=== PATIENT | male | born 1980 | race Caucasian/White ===

== ENCOUNTER 2024-06-09 10:33 | Outpatient (OUT) | payer OTHER, SELFPAY ==
--- NOTE | 2024-06-09 10:51 | XR_ITS ---
The [address] [address] Patient Name: AMRITA COX MRN: [id number] date: 1980 Sex: M Assigned Patient Location: LAB Current Patient Location: LAB Accession/Order Number: [id number] Exam Date: 06/09/2024 11:25 Report Date: 06/09/2024 11:29 At the request of: ANGIE MONSALVE Procedure: XR lumbar spine 6V w bending LUMBAR SPINE WITH FLEXION-EXTENSION VIEWS - 6 views: CLINICAL HISTORY: Chronic low back pain with radiation down the lower extremities and intermittent numbness. No reported injury. M54.50 COMPARISON: None AP, lateral (neutral, flexion and extension and both oblique views of the lumbosacral junction were obtained. There is partial lumbarization of S1 with a pseudoarthrosis on the right. There is no acute compression fracture. Alignment is maintained on the lateral views. No instability is noted. Mild multilevel disc space narrowing is present along with anterior and posterior endplate spurs. There is also some facet disease, greater distally. No pars defect is identified. The sacroiliac joints are maintained and show slight sclerosis. There are no paraspinal soft tissue abnormalities. XR/XR lumbar spine 6V w bending IMPRESSION: MULTILEVEL DEGENERATIVE CHANGES. NO ACUTE PLAIN FILM FINDINGS. Impression dictated by: Calli Dixon M.D.06/09/2024 11:29 AM Dictation Location: [place] [address] Electronically authenticated by: [id number] Y Date: 06/09/2024 11:29
[2024-06-09 10:52] LABS: Basophils Absolute Auto 0.1 10^3/uL (0.0-0.1); Basophils Percent Auto 1.1 % (0.2-2.0); Eosinophils Percent Auto 10.9 % (0.9-7.0); Hematocrit 46.3 % (42.0-54.0); Hemoglobin 15.9 g/dL (14.0-18.0); Immature Granulocytes Abs Auto 0.01 10^3/uL (0.00-0.03); Immature Granulocytes Pct Auto 0.1 % (0.0-0.5); Lymphocytes Absolute Auto 2.2 10^3/uL (1.2-3.8); Lymphocytes Percent Auto 24.5 % (20.5-60.0); Mean Corpuscular HGB Conc 34.3 g/dL (29.9-35.2); Mean Corpuscular Hemoglobin 31.6 pg (25.9-34.0); Mean Platelet Volume 9.7 fL (9.5-13.5); Monocytes Absolute Auto 0.6 10^3/uL (0.3-0.8); Monocytes Percent Auto 6.9 % (1.7-12.0); Neutrophils Absolute Auto 5.2 10^3/uL (1.4-6.5); Neutrophils Percent Auto 56.5 % (43.0-75.0); Platelet Count 256 10^3/uL (150-450); Red Blood Count 5.03 10^6/uL (4.70-6.10); Red Cell Distribution Width 12.3 % (11.0-15.0); White Blood Count 9.2 10^3/uL (4.0-11.0)
[2024-06-09 11:26] LABS: Alanine Aminotransferase 31 U/L (16-63); Albumin Globulin Ratio 1.1; Albumin Level 3.9 g/dL (3.4-5.0); Alkaline Phosphatase 81 U/L (46-116); Aspartate Amino Transferase 22 U/L (15-37); BUN Creatinine Ratio 11.9; Bilirubin Total 0.4 mg/dL (0.2-1.0); Calcium 9.4 mg/dL (8.5-10.1); Carbon Dioxide 28.4 mmol/L (21.0-32.0); Chloride 104 mmol/L (98-107); Estimated GFR (African America >60 (>=60 mL/min/1.73m^2); Estimated GFR (Non-African Ame >60 (>=60 mL/min/1.73m^2); Globulin 3.4 g/dL; Glucose 96 mg/dL (74-106); Potassium 4.4 mmol/L (3.5-5.1); Sodium 140 mmol/L (136-145); Total Protein 7.3 g/dL (6.4-8.2)
[2024-06-09 11:48] LABS: Percent Iron Saturation 24.4 %
== END 2024-06-09 10:34 | disposition home or self-care (01) ==
LOC: LAB 10:37
PROVIDERS: PCP Nurse Practitioner Family; Visit Provider Nurse Practitioner Family
DX: K92.1 Melena (principal); M54.50 Low back pain, unspecified; M51.369 Other intervertebral disc degeneration, lumbar region without mention of lumbar back pain or lower extremity pain
CPT/HCPCS: 36415; 72114; 80053; 82728; 83540; 83550; 85025

== ENCOUNTER 2024-06-11 16:44 | Emergency (ER) | payer OTHER, SELFPAY ==
[2024-06-11 16:49] VITALS: BP 147/103; PULSE 111; TEMP 36.7; O2SAT 97; BMI 33.0
--- OUTSIDE RECORDS SUMMARY | 2024-06-11 16:50 | XMS_ITS | CCD ---
Author Organization [facility] Care Team Providers Care Veterinary Pharmacologist Name Role Phone Collins Cruz Unavailable Marilyn Rao Unavailable [facility], [facility] Primary Care Provider [phone] MD Meño Coelho Emergency Provider DO Mino Gallego Emergency Provider [phone] [facility] Primary Care Provider MD Meño Coelho Emergency Provider DO Mino Gallego Emergency Provider MD Marilyn Rao Attending Provider Marilyn Rao Admitting Unavailable Marilyn Rao Attending Unavailable [facility], [facility] Primary Care Unavailable Olexa, Collins Attending Unavailable Olexa, Collins Admitting Unavailable [facility], [facility] Primary Care Unavailable Nancy, Collins Attending Unavailable Frankixa, Collins Admitting Unavailable [facility], [facility] Primary Care Unavailable [facility], [facility] Primary Care Unavailable Marilyn Rao Attending Unavailable Marilyn Rao Admitting Unavailable [facility], [facility] Primary Care Unavailable Mino Gallego Attending Unavailable Mino Gallego Admitting Unavailable [facility], [facility] Primary Care Unavailable Meño Coelho Attending Unavailable Meño Coelho Admitting Unavailable Olexa, Collins Attending Unavailable Frankixa, Collins Admitting Unavailable [facility], [facility] Primary Care Unavailable Marilyn Rao Attending Unavailable Marilyn Rao Admitting Unavailable [facility], [facility] Primary Care Unavailable Hazel Amato Unavailable DR ALVINO BACK Admitting [facility]available [facility], DR VIRAMONTES Primary Care Unavailable RAJIV Faulkner DR ALVINO Attending Unavailable RAJIV ., DR DE OLIVEIRA Consulting Unavailable KRISHNA, DR MADELEINE King Attending Unavailable KRISHNA, DR MADELEINE King Consulting Unavailable KRISHNA, DR MADELEINE King Admitting Unavailable MISC, DR VIRAMONTES Primary Care Unavailable IRMA, DR EL Cates Consulting Unavailabl e MIS, DR VIRAMONTES Primary Care Unavailable XAVIER ., COSMO Admitting Unavailable XAVIER ., COSMO Attending Unavailable REINA REID Consulting Unavailable MISC, DR VIRAMONTES Primary Care Unavailable ARMAND JUARES Consulting Unavailable XAVIER ., COSMO Admitting Unavailable XAVIER ., COSMO Attending Unavailable XAVIER ., COSMO Consulting Unavailable MISC, DR VIRAMONTES Primary Care Unavailable XAVIER ., COSMO Consulting Unavailable XAVIER ., COSMO Admitting Unavailable XVAIER ., COSMO Attending Unavailable MISC, DR VIRAMONTES Consulting Unavailable MISC, DR VIRAMONTES Primary Care Unavailable MISC, DR VIRAMONTES Admitting Unavailable MISC, DR VIRAMONTES Attending Unavailable KUNAL, DR DELANEY King Consulting Unavailable KUNAL, DR DELANEY King Consulting Unavailable MIS, DR VIRAMONTES Primary Care Unavailable ZION PRITCHETT Admitting Unavailable ZION PRITCHETT Attending Unavailable ZION PRITCHETT Consulting Unavailable Kylee Lizarraga Unavailable Medications Current Medications Medication Drug Class(es) Dates Sig (Normalized) Sig (Original) [id number] 200 actuat albuterol 0.09 mg/actuat metered dose inhaler (2 sources) beta2-Adrenergic Agonist Start: 03-13-2022 take 2 puff(s) by inhalation every four hours as needed Albuterol Sulfate HFA 108 (90 Base) MCG/ACT 2 puffs as needed Inhalation every 4 hrs Feb, Active Start: 03-13-2022 take 2 puff(s) by in halation every four hours as needed Albuterol Sulfate HFA 108 (90 Base) MCG/ACT 2 puffs as needed Inhalation every 4 hrs Feb, Not-Taking busPIRone hydrochloride 5 mg oral tablet (4 sources) Start: 12-31-2023 End: 06-02-2024 take 1 tablet by mouth twice daily Buspirone 5 mg tablet Active 5 MG PO Twice daily 180 90 June 02, 2024 3:05pm diclofenac sodium 0.01 mg/mg topical gel (3 sources) Nonsteroidal Anti-inflammatory Drug Start: 01-14-2022 Voltaren 1 % apply 1-2 grams to affected area Transdermal twice a day as needed for 30 days Dec, Active doxycycline hyclate 100 mg oral tablet (8 sources) Tetracycline-class Drug Start: 01-30-2022 take 1 tablet by mouth every twelve hours Doxycycline Hyclate 100 MG 1 tablet Orally every 12 hrs for 7 days Jan, Active Start: 09-19-2021 End: 11-19-2023 take 1 tablet by mouth twice daily Doxycycline Hyclate 100 mg tablet Discontinued 100 MG PO Twice daily 01 01September 19, 2021 12:00am November 19, 2023 7:54am escitalopram 20 mg oral tablet (7 sources) Serotonin Reuptake Inhibitor Start: 11-19-2023 End: 06-03-2024 take 1 tablet by mouth once daily Escitalopram Oxalate (Lexapro) 20 mg tablet Active 20 MG PO Daily June 03, 2024 11:16am Lexapro Active ibuprofen 800 mg oral tablet (20 sources) Nonsteroidal Anti-inflammatory Drug Start: 12-16-2022 take 1 tablet by mouth every eight hours at mealtime as needed for pain Ibuprofen 800 MG 1 tablet with food or milk as needed Orally every 8 hrs prn pain for 7 days Nov, Active Start: 01-13-2022 End: 01-18-2022 take 1 tablet by mouth three times daily as needed for pain Ibuprofen 800 mg tablet Discontinued 800 MG PO Three times daily as needed for Pain January 13, 2022 12:00am January 18, 2022 10:46pm Start: 08-15-2020 End: 01-18-2022 take 1 tablet by mouth every eight hours as needed for pain Ibuprofen 600 mg tablet Discontinued 600 MG PO Q8H as needed for pain August 23, 2020 1:00am January 18, 2022 10:46pm Ibuprofen Not-Ta jesus Ibuprofen Active penicillin v potassium 500 mg oral tablet (1 source) Start: 12-16-2022 take 1 tablet by mouth every six hours Penicillin V Potassium 500 MG 1 tablet Orally QID for 7 days Nov, Active traZODone hydrochloride 50 mg oral tablet (3 sources) Serotonin Reuptake Inhibitor Start: 12-31-2023 End: 06-09-2024 take 1 tablet by mouth once daily at bedtime Trazodone 50 mg tablet Active 50 MG PO Daily at bedtime 90 90 June 09, 2024 10:04am Completed/Discontinued Medications Medication Drug Class(es) Dates Sig (Normalized) Sig (Original) acetaminophen 325 mg / HYDROcodone bitartrate 5 mg oral tablet (10 sources) Opioid Agonist Start: 09-19-2021 End: 11-19-2023 take 1 tablet by mouth every four to six hours as needed for pain Hydrocodone-Acetami nophen 5-325 mg tablet Discontinued 1 - 2 TAB PO EVERY 4-6 HOURS as needed for pain 15 September 19, 2021 November 19, 2023 7:54am Start: 06-25-2021 take 1 tablet by tank th every four hours as needed for pain HYDROcodone-Acetaminophen 5-325 MG 1 tab let as needed for pain Orally up to every 4 hrs for 5 days May, Active acetaminophen 325 mg / oxyCODONE hydrochloride 5 mg oral tablet (12 sources) Opioid Agonist Start: 08-15-2020 End: 09-03-2020 take 1 tablet by mouth every six hours as needed for pain Oxycodone-Acetaminophen (Percocet) 5-325 mg tablet Discontinued 1 - 2 TAB PO Q6H as needed for pain 20 August 23, 2020 September 03, 2020 11:29pm cyclobenzaprine hydrochloride 7.5 mg oral tablet (5 sources) Muscle Relaxant Start: 01-19-2022 End: 11-19-2023 take 1 tablet by mouth three times daily as needed for muscle spasms Cyclobenzaprine 7.5 mg tablet Discontinued 7.5 MG PO Three times daily as needed for muscle spasm January 19, 2022 12:00am November 19, 2023 7:55am 12 hr dextromethorphan hydrobromide 30 mg / guaiFENesin 600 mg extended release oral tablet (2 sources) Uncompetitive W-beyund-G-aspa rtate Receptor Antagonist, Sigma-1 Agonist Start: 03-13-2022 take 1 tablet by mouth every twelve hours Mucinex DM 30-600 MG 1 tablet as needed Orally every 12 hrs Feb, Not-Taking docusate sodium 50 mg / sennosides, custodial 8.6 mg oral tablet (6 sources) Start: 08-15-2020 End: 09-03-2020 take 2 tablets by mouth once daily at bedtime as needed for constipation Sennosides-Docusate Sodium (Senna Plus) 8.6-50 mg tablet Discontinued 2 TAB PO Daily at bedtime as needed for constipation August 15, 2020 12:00am September 03, 2020 11:29pm gabapentin 600 mg oral tablet (5 sources) Anti-epileptic Agent Start: 01-19-2022 End: 11-19-2023 Gabapentin 600 mg tablet Discontinued 300 MG PO Three times daily January 19, 2022 12:00am November 19, 2023 7:55am Start: 01-19-2022 End: 11-19-2023 take 300 mg by mouth three times daily Gabapentin Discontinued 300 MG PO Three times daily January 19, 2022 12:00am November 19, 2023 7:55am lidocaine 0.05 mg/mg medicated patch (5 sources) Antiarrhythmic, Amide Local Anesthetic Start: 01-19-2022 End: 11-19-2023 apply 1 dose topically every twelve hours Lidocaine (Lidoderm) 5 % adhesive patch,medicated Discontinued 0 TOPICAL .COMPLEX January 19, 2022 12:00am November 19, 2023 7:54am leave one patch on most painful area for up to 12 hrs methylPREDNISolone 4 mg oral tablet (8 sources) Corticosteroid Start: 01-14-2022 End: 11-19-2023 take 1 tablet by mouth once daily Methylprednisolone 4 mg tablets,dose pack Discontinued 4 MG PO Daily January 18, 2022 12:00am November 19, 2023 7:54am naproxen 500 mg delayed release oral tablet (5 sources) Nonsteroidal Anti-inflammatory Drug Start: 01-19-2022 End: 11-19-2023 take 1 tablet by mouth twice daily as needed for pain Naproxen 500 mg tablet,delayed release (DR/EC) Discontinued 500 MG PO Twice daily as needed for pain January 19, 2022 12:00am November 19, 2023 7:55am ondansetron 4 mg disintegrating oral tablet (12 sources) Serotonin-3 Receptor Antagonist Start: 08-15-2020 End: 09-03-2020 take 1 tablet by mouth every eight hours as needed for nausea and vomiting Ondansetron 4 mg tablet,disintegrating Discontinued 4 MG PO Q8H as needed for nausea and vomiting August 23, 2020 1:00am September 03, 2020 11:29pm triamcinolone acetonide 40 mg/ml injectable suspension (8 sources) Corticosteroid Start: 07-29-2021 Kenalog-40 July, 40 mg Problems Active Problems Problem Classification Problem Date Documented Da te Episodic/Chronic Abdominal pain (8 sources) Abdominal pain; Translations: [Unspecified abdominal pain] 09-04-2020 Episodic Anxiety disorders (6 sources) Anxiety; Translations: [Anxiety disorder, unspecified] 11-19-2023 Chronic Chronic obstructive pulmonary disease and bronchiectasis (1 source) Bronchitis, not specified as acute or chronic Episodic Disorders of teeth and jaw (2 sources) Periapical abscess without sinus; Translations: [Jaw pain] Episodic Esophageal disorders (2 sources) Gastroesophageal reflux disease; Translations: [Gastro-esophageal reflux disease without esophagitis] 06-09-2024 Chronic Gastrointestinal hemorrhage (2 sources) Hematochezia; Translations: [Melena] 06-09-2024 Episodic Immunizations and screening for infectious disease (3 sources) Contact with and (suspected) exposure to other viral communicable diseases; Translations: [Contact with and (suspected) exposure to other viral communicable diseases] Episodic Influenza (1 source) Influenza due to other identified influenza virus with other respiratory manifestations Episodic Mood disorders (5 sources) Depressive disorder; Translations: [Depression] 11-19-2023 Chronic Other connective tissue disease (3 sources) Ganglion, left hand Onset: 2 Resolved: 2 Episodic Other connective tissue disease (6 sources) Ganglion cyst of tendon sheath; Translations: [Ganglion, unspecified site] 09-19-2021 Episodic Other connective tissue disease (5 sources) Muscle spasm of cervical muscle of neck; Translations: [Other muscle spasm] 01-19-2022 Episodic Other nervous system disorders (11 sources) Carpal tunnel syndrome; Translations: [Carpal tunnel syndrome, unspecified upper limb] Chronic Other nervous system disorders (20 sources) Carpal tunnel syndrome of right wrist; Translations: [Carpal tunnel syndrome, right upper limb] Chronic Other nervous system disorders (20 sources) Carpal tunnel syndrome of left wrist; Translations: [Carpal tunnel syndrome, left upper limb] Chronic Other nervous system disorders (1 source) Carpal tunnel syndrome, left upper limb Onset: 2 Resolved: 2 Chronic Other nervous system disorders (1 source) Carpal tunnel syndrome, right upper limb Onset: 2 Resolved: 2 Chronic Other nervous system disorders (4 sources) Unspecified mononeuropathy of left upper limb; Translations: [UNS MONONEUROPATHY LEFT UPPER LIMB] Onset: 2 Chronic Other nervous system disorders (11 sources) Numbness of hand; Translations: [Other disturbances of skin sensation] Episodic Other nervous system disorders (6 sources) Pain in limb; Translations: [Other acute postprocedural pain] 01-13-2022 Episodic Other nutritional; endocrine; and metabolic disorders (11 sources) Body mass index 40+ - severely obese; Translations: [Body mass index (BMI) 45.0-49.9, adult] Chronic Other screening for suspected conditions (not mental disorders or infectious disease) (15 sources) Patient encounter status; Translations: [Encounter for screening for diseases of the blood and blood-forming organs and certain disorders involving the immune mechanism] 11-19-2023 Episodic Pancreatic disorders (not diabetes) (6 sources) Pancreatitis; Translations: [Acute pancreatitis without necrosis or infection, unspecified] 08-15-2020 Episodic Residual codes; unclassified (1 source) Disturbance in sleep behavior; Translations: [Sleep disorder, unspecified] 12-31-2023 Episodic Spondylosis; intervertebral disc disorders; other back problems (8 sources) Cervical radiculopathy; Translations: [Radiculopathy, cervical region] Onset: 2 01-19-2022 Episodic Superficial injury; contusion (6 sources) Contusion of hand; Translations: [Contusion of left hand, initial encounter] 09-09-2019 Episodic Unclassified (1 source) Cutaneous abscess of left hand; Translations: [Cutaneous abscess of left hand] Onset: 2 Unclassified (1 source) M67.442 - Ganglion, left hand; Translations: [M67.442 - Ganglion, left hand] Onset: 2 Unclassified (1 source) Z01.812 - Encounter for preprocedural laboratory examination; Translations: [Z01.812 - Encounter for preprocedural laboratory examination] Onset: 2 Unclassified (1 source) M79.642 - Pain in left hand; Translations: [M79.642 - Pain in left hand] Onset: 2 Unclassified (1 source) G56.02 - Carpal tunnel syndrome, left upper limb; Translations: [G56.02 - Carpal tunnel syndrome, left upper limb] Onset: 2 Past or Other Problems Problem Classification Problem Date Documented Date Episodic/Chronic Complications of surgical procedures or medical care (1 source) Infection following a procedure, other surgical site, initial encounter; Translations: [INFECT FOL PROC OTH SURG SITE INIT] Onset: 01-28-2022 Episodic E Codes: Natural/environment (1 source) Exposure to other specified factors, initial encounter; Translations: [EXPOSURE OTHER SPEC FACTORS INITIAL] Onset: 01-20-2022 Episodic Other aftercare (2 sources) Encounter for removal of sutures Onset: 07-09-2021 Resolved: 10-04-2021 Episodic Other aftercare (1 source) Other custodial (current) drug therapy; Translations: [OT GIS CONSULTANT CURRENT DRUG THERAPY] Onset: 01-30-2022 Episodic Other connective tissue disease (5 sources) Pain in left hand; Translations: [M79.642 - Pain in left hand] Onset: 07-29-2021 Resolved: 07-29-2021 Episodic Other connective tissue disease (1 source) Pain in left arm; Translations: [Pain in left arm] Onset: 01-19-2022 Episodic Other connective tissue disease (4 sources) Other specified soft tissue disorders; Translations: [Other specified soft tissue disorders] Onset: 01-13-2022 Episodic Other connective tissue disease (1 source) Other synovitis and tenosynovitis, left hand; Translations: [OTH SYNOVITIS TENOSYNOVITIS LT HAND] Onset: 01-14-2022 Episodic Other nervous system disorders (1 source) Other acute postprocedural pain; Translations: [G89.18 - Other acute postprocedural pain] Onset: 09-19-2021 Episodic Other non-traumatic joint disorders (4 sources) Pain in left shoulder; Translations: [PAIN IN LEFT SHOULDER] Onset: 01-18-2022 Episodic Other skin disorders (1 source) Localized swelling, mass and lump, left upper limb Onset: 07-29-2021 Resolved: 07-29-2021 Episodic Residual codes; unclassified (6 sources) Other specified postprocedural states; Translations: [OTH SPECIFIED POSTPROCEDURAL STATES] Onset: 06-25-2021 Resolved: 10-04-2021 Episodic Screening and history of mental health and substance abuse codes (1 source) Personal history of nicotine dependence; Translations: [PERSONAL HISTORY OF NICOTINE DEPEND] Onset: 01-30-2022 Episodic Skin and subcutaneous tissue infections (3 sources) Cutaneous abscess of left hand; Translations: [CUTANEOUS ABSCESS OF LEFT HAND] Onset: 01-30-2022 Episodic Sprains and strains (1 source) Strain of unspecified muscle, fascia and tendon at shoulder and upper arm level, left arm, initial encounter; Translations: [STRN UNS MSC F TND SHLDR UA LA INIT] Onset: 01-20-2022 Episodic Results Test Name Value Interpretation Reference Range Facility COVID/FLU RT-PCRon SARS-CoV-2 (COVID-19) RNA SHA+probe Ql (Unsp spec) Negative [facility] Other COVID/FLU RT-PCR Positive [facility] Other COVID/FLU RT-PCR Negative [facility] Other Aerobic Cultureon 01-31-2022 Aerobic Culture Light Normal Skin Nayeli 2 Days No Anaerobes Isolated 3 Days Gram Stain Result No Bacteria Seen No White Blood Cells Seen PERFORMED BY: [place] [id number] PATHOLOGIST MAGAZINE GRINDER LOADER JENNY ALEMAN M.D. Normal [facility] Comment on above: Performed By: #### A ERC #### [place] [address] [place] CULTURE WOUNDon 01-28-2022 CULTURE WOUND Culture Observations: NO GROWTH OF ANAEROBES AT 72 HOURS. Isolate 1 Staphylococcus lugdunensis Light growth of ORGANISM 1 Staphylococcus lugdunensis ANTIBIOTIC M.I.C RX STATUS Beta-Lactamase Pos POS C Cefoxitin Screen Neg NEG C Benzylpenicillin >=0.5 R C Gentamicin <=0.5 S C Ciprofloxacin <=0.5 S C Levofloxacin <=0.12 S C Inducible Clindamycin Resistance Neg NEG C Erythromycin <=0.25 S C Clindamycin <=0.25 S C Quinupristin/Dalfo pristin <=0.25 S C Linezolid 1 S C Vancomycin <=0.5 S C Tetracycline <=1 S C Rifampicin <=0.5 S C Trimethoprim/Sulfa methoxazole <=10 S C Oxacillin 2 S C Normal [facility] Comment on above: Performed By: #### W OUNDCX ####[facility] [id number] [address]Dr. Miguel Devries CBC AUTO DIFFon 01-24-2022 BASO # 0.1 103/ul Normal 0.0-0.1 [facility] Comment on above: Performed By: #### C BC #### [facility] [address] [address] [address] iMguel Devries Basophils/100 WBC (Bld) 0.4 % Normal 0.2-2.0 [facility] Comment on above: Performed By: #### C BC #### [facility] [address] [address] [address] Miguel Devries EO # 0.4 103/ul Normal 0.0-0.7 [facility] Comment on above: Performed By: #### C BC #### [facility] [address] [address] [address] Miguel Devries Eosinophils/100 WBC (Bld) 2.8 % Normal 0.9-7.0 [facility] Comment on above: Performed By: #### C BC #### [facility] [address] [place] [address] Dr. Miguel Devries Erythrocyte distribution width (RBC) [Ratio] 12.3 % Normal 11.0-15.0 [facility] Comment on above: Performed By: #### C BC #### [facility] [address] [place] [address] Dr. Miguel Devries Hematocrit (Bld) [Volume fraction] 40.9 % Critically low 42.0-54.0 [facility] Comment on above: Performed By: #### C BC #### [facility] [address] [address] [address] Miguel Devries Hemoglobin (Bld) [Mass/Vol] 14.7 g/dL Normal 14.0-18.0 [facility] Comment on above: Performed By: #### C BC #### [facility] [address] [address] [address] Miguel Devries IG # 0.06 10e3/ul Critically high 0.00-0.03 [facility] Comment on above: Performed By: #### C BC #### [facility] [address] [address] [address] Miguel Devries IG % 0.4 % Normal 0.0-0.5 [facility] Comment on above: Performed By: #### C BC #### [facility] [address] [place] [address] Dr. Miguel Devries LYMPH # 2.6 103/ul Normal 1.2-3.8 [facility] Comment on above: Performed By: #### C BC #### [facility] [address] [place] [address] Dr. Miguel Devries Lymphocytes/100 WBC (Bld) 17.6 % Critically low 20.5-60.0 [facility] Comment on above: Performed By: #### C BC #### [facility] [address] [place] [address] Dr. Miguel Devries MANUAL DIFF REQ NO Normal [facility] Comment on above: Performed By: #### C BC #### [facility] [address] [place] [address] Dr. Miguel Devries MCH (RBC) [Entitic mass] 32.5 pg Normal 25.9-34.0 [facility] Comment on above: Performed By: #### C BC #### [facility] [address] [place] [address] Dr. Miguel Devries MCHC (RBC) [Mass/Vol] 35.9 g/dL Critically high 29.9-35.2 [facility] Comment on above: Performed By: #### C BC #### [facility] [address] [address] [address] Miguel Devries MCV (RBC) [Entitic vol] 90.5 fL Normal 80.0-94.0 [facility] Comment on above: Performed By: #### C BC #### [facility] [address] [address] [address] Miguel Devries MONO # 1.1 103/ul Critically high 0.3-0.8 [facility] Comment on above: Performed By: #### C BC #### [facility] [address] [place] [address] Dr. Miguel Devries Monocytes/100 WBC (Bld) 7.2 % Normal 1.7-12.0 [facility] Comment on above: Performed By: #### C BC #### [facility] [address] [place] [address] Dr. Miguel Devries NEUT # 10.6 103/ul Critically high 1.4-6.5 [facility] Comment on above: Performed By: #### C BC #### [facility] [address] [place] [address] Dr. Miguel Devries Neutrophils/100 WBC (Bld) 71.6 % Normal 43.0-75.0 [facility] Comment on above: Performed By: #### C BC #### [facility] [address] [place] [address] Dr. Miguel Devries Platelet mean volume (Bld) [Entitic vol] 9.7 fL Normal 9.5-13.5 [facility] Comment on above: Performed By: #### C BC #### [facility] [address] [place] [address] Dr. Miguel Devries PLT 266 103/ul Normal 150-450 [facility] Comment on above: Performed By: #### C BC #### [facility] [address] [place], [place] [id number] Dr. Miguel Devries RBC 4.52 106/ul Critically low 4.70-6.10 [facility] Comment on above: Performed By: #### C BC #### [facility] [address] [place] [address] Dr. Miguel Devries WBC 14.7 103/ul Critically high 4.0-11.0 [facility] Comment on above: Performed By: #### C BC #### [facility] [address] [address] [address] Miguel Devries CULTURE BLOODon 01-24-2022 Microscopic examination of blood, culture Culture Observations: NO GROWTH AT 5 DAYS. Normal [facility] Comment on above: Performed By: #### B LDCX2 ####[facility] [id number] [address]Dr. Miguel Devries Microscopic examination of blood, culture Culture Observations: NO GROWTH AT 5 DAYS. Normal [facility] Comment on above: Performed By: #### B LDCX1 ####[facility] [id number] [address]Dr. Miguel Devries PROF 14(COMP METB)on 022 Albumin [Mass/Vol] 3.4 g/dL Normal 3.4-5.0 [facility] Comment on above: Performed By: #### C MP #### [facility] [address] [place] [address] Dr. Miguel Devries Albumin/Globulin [Mass ratio] 1.1 {ratio} Normal [facility] Comment on above: Performed By: #### C MP #### [facility] [address] [place] [address] Dr. Miguel Devries ALP [Catalytic activity/Vol] 66 U/L Normal 46-116 [facility] Comment on above: Performed By: #### C MP #### [facility] [address] [place] [address] Dr. Miguel Devries ALT [Catalytic activity/Vol] 28 U/L Normal 16-63 [facility] Comment on above: Performed By: #### C MP #### [facility] [address] [place] [address] Dr. Miguel Devries Anion gap [Moles/Vol] 9.8 mmol/L Normal [facility] Comment on above: Performed By: #### C MP #### [facility] [address] [place] [address] Dr. Miguel Devries AST [Catalytic activity/Vol] 16 U/L Normal 15-37 [facility] Comment on above: Performed By: #### C MP #### [facility] [address] [address] [address] Miguel Devries Bilirubin [Mass/Vol] 0.2 mg/dL Normal 0.2-1.0 [facility] Comment on above: Performed By: #### C MP #### [facility] [address] [address] [address] Miguel Devries Calcium [Mass/Vol] 8.0 mg/dL Critically low 8.5-10.1 [facility] Comment on above: Performed By: #### C MP #### [facility] [address] [place] [address] Dr. Miguel Devries Chloride [Moles/Vol] 106 mmol/L Normal 98-107 [facility] Comment on above: Performed By: #### C MP #### [facility] [address] [place] [address] Dr. Miguel Devries CO2 [Moles/Vol] 27.6 mmol/L Normal 21.0-32.0 [facility] Comment on above: Performed By: #### C MP #### [facility] [address] [place] [address] Dr. Miguel Devries Creatinine [Mass/Vol] 0.79 mg/dL Normal 0.70-1.30 [facility] Comment on above: Performed By: #### C MP #### [facility] [address] [place] [address] Dr. Miguel Devries EGFR-AF IRISH >60 Normal >=60 [facility] Comment on above: Performed By: #### C MP #### [facility] [address] [place] [address] Dr. Miguel Devries EGFR-NON AF IRISH >60 Normal >=60 [facility] Comment on above: Performed By: #### C MP #### [facility] [address] [place] [address] Dr. Miguel Devries Globulin (S) [Mass/Vol] 3.0 g/dL Normal T [facility] Comment on above: Performed By: #### C MP #### [facility] [address] [address] [address] Miguel Devries Glucose [Mass/Vol] 113 mg/dL Critically high 74-106 [facility] Comment on above: Performed By: #### C MP #### [facility] [address] [address] [address] Miguel Devries Potassium [Moles/Vol] 3.4 mmol/L Critically low 3.5-5.1 [facility] Comment on above: Performed By: #### C MP #### [facility] [address] [address] [address] Miguel Devries Protein [Mass/Vol] 6.4 g/dL Normal 6.4-8.2 [facility] Comment on above: Performed By: #### C MP #### [facility] [address] [address] [address] Miguel Devries Sodium [Moles/Vol] 140 mmol/L Normal 136-145 [facility] Comment on above: Performed By: #### C MP #### [facility] [address] [address] [address] Miguel Devries Urea nitrogen [Mass/Vol] 14.0 mg/dL Normal 7.0-18.0 [facility] Comment on above: Performed By: #### C MP #### [facility] [address] [address] [address] Miguel Devries Urea nitrogen/Creatinine [Mass ratio] 17.7 mg/mg Normal [facility] Comment on above: Performed By: #### C MP #### [facility] [address] [address] [address] Miguel Devries XR CSPINE 2_3 VIEWSon 2021 XR CSPINE 2_3 VIEWS EXAMINATION: XR CSPINE 2_3 VIEWS HISTORY: Mononeuropathy of upper limb ; acute neck and left arm pain COMPARISON: CT cervical spine 01/18/2022 FINDINGS: BONES: Straightening of the normal lordotic curvature; positioning versus muscle spasm. No fracture or spondylolisthesis. Mild degenerative facet arthropathy. DISC SPACES: Mild narrowing C4-C5, C6-C7. Moderate narrowing C5-C6. Posterior disc-osteophytes likely causing mild/moderate central canal narrowing at C5-C6. PARASPINOUS: Negative. No paraspinous abnormality is seen. OTHER: Negative. IMPRESSION: 1. No appreciable acute abnormality. 2. Mild-moderate degenerative changes of lower cervical spine. Electronically authenticated by: DELANEY SYED Date: 2022-01-23 18:16 Normal [facility] ECG 12 lead ECGon 01-19-2022 ECG 12 lead ECG [facility] [employer] [address] [place] [address] Electrocardiograph Report Signed Patient: Sukh Cisneros MR#: [id number] : 1980 Acct:[id number] Age/Sex: 41 / M ADM Date: 01/18/22 Loc: ER Room: Type: [facility] ER Attending Dr: Ordering Provider: Mino Gallego DO Date of Service: 01/18/22 ECG/ECG 12 lead ECG: Extremity Injury, Upper Copies to: Test Reason : Blood Pressure : 172/100 mmHG Vent. Rate : 105 BPM Atrial Rate : 105 BPM P-R Int : 132 ms QRS Dur : 080 ms QT Int : 336 ms P-R-T Axes : 044 011 042 degrees QTc Int : 444 ms Sinus tachycardia Otherwise normal ECG When compared with ECG of 05-MAY-2018 13:22, premature ventricular complexes are no longer present Confirmed by Mino Gallego DO ([id number]) on 01/19/2022 4:26:01 AM Referred By: Electronically Signed By:Mino Gallego DO Transcribed By: MUS Signed By Mino Gallego DO 01/19 0426 Normal [facility] CT CSPINE WO CONon 2 CT CSPINE WO CON EXAMINATION: CT CSPINE WO CON HISTORY: MUSCLE WEAKNESS (GENERALIZED). COMPARISON: None. TECHNIQUE: CT Cervical spine without IV contrast. Coronal and sagittal reformations were performed. Dose reduction techniques were achieved by using automated exposure control and/or adjustment of mA and/or kV according to patient size and/or use of iterative reconstruction technique. FINDINGS: Cervical alignment is normal. No fracture or subluxation. Mild degenerative disc disease at C5-C6 and C6-C7. No significant osseous canal stenosis. No significant facet arthropathy. No prevertebral soft tissue swelling. Lung apices are clear to the extent of visualization. IMPRESSION: Mild lower cervical degenerative disc disease without evidence of fracture or malalignment. Electronically authenticated by: REINA FRANKLIN Date: 2022-01-18 11:02 Normal [facility] Basic Metabolic Panelon 10- Anion gap [Moles/Vol] 12.0 mmol/L Normal 6.0-15.0 [facility] Comment on above: Performed By: #### C BC, BMP #### [facility] [address] Calcium [Mass/Vol] 8.7 mg/dL Normal 8.2-10.2 [facility] Comment on above: Performed By: #### C BC, BMP #### [facility] [address] Chloride [Moles/Vol] 105 mmol/L Normal 95-114 [facility] Comment on above: Performed By: #### C BC, BMP #### [facility] [address] CO2 [Moles/Vol] 22.9 mmol/L Normal 22.0-30.0 [facility] Comment on above: Performed By: #### C BC, BMP #### [facility] [address] Creatinine [Mass/Vol] 0.73 mg/dL Normal 0.64-1.27 [facility] Comment on above: Performed By: #### C BC, BMP #### [facility] [address] [place] [address] [place] Creatinine Clr Calc Pharmacy 161.10 Normal [facility] Comment on above: Result Comment: PERF ORMED BY: [place] [address] PATHOLOGIST [employer] JENNY ALEMAN M.D. Performed By: #### C BC, BMP #### [place] [address] [place] Estimated GFR ( Sheela > 60 Normal [facility] Comment on above: Result Comment: GFR estimated reference range: According to KDOQI guidelines, <60 ml/min/1.73m2 is sufficient to diagnose a patient with chronic kidney disease. Performed By: #### C BC, BMP #### [address] Estimated GFR (Non- Am > 60 Normal [facility] Comment on above: Performed By: #### C BC, BMP #### [address] Glucose [Mass/Vol] 91 mg/dL Normal 70-100 [facility] Comment on above: Result Comment: [place] Glucose Reference Range is dependent on time and content of last meal. Glucose of more than 200 mg/dL in a nonstressed, ambulatory subject supports the diagnosis of Diabetes Mellitus. ADA recommended reference range Performed By: #### C BC, BMP #### [address] Potassium [Moles/Vol] 3.9 mmol/L Normal 3.5-5.1 [facility] Comment on above: Performed By: #### C BC, BMP #### [address] Sodium [Moles/Vol] 136 mmol/L Normal 136-146 [facility] Comment on above: Performed By: #### C BC, BMP #### [address] Urea nitrogen [Mass/Vol] 7 mg/dL Low 9-23 [facility] Comment on above: Performed By: #### C BC, BMP #### [place] [address] [place] Basophils Auto (Bld) [#/Vol] Ordered By: Meño Coelho on 01-13-2022 Basophils (Bld) [#/Vol] 0.1 10*3/uL 0.0-0.2 [facility] Basophils/100 WBC Auto (Bld) Ordered By: Meño Coelho on 01-13-2022 Basophils/100 WBC (Bld) 0.8 % . F [facility] Complete Blood Count Auto Di ffon 01-13-2022 Basophils (Bld) [#/Vol] 0.1 10*3/uL Normal 0.0-0.2 [facility] Comment on above: Result Comment: PERF ORMED BY: [place] [address] PATHOLOGIST [employer] JENNY ALEMAN M.D. Performed By: #### C BC, BMP #### [address] Basophils/100 WBC (Bld) 0.8 % Normal . [facility] Comment on above: Performed By: #### C BC, BMP #### [address] Eosinophils (Bld) [#/Vol] 0.4 10*3/uL Normal 0.0-0.45 [facility] Comment on above: Performed By: #### C BC, BMP #### [address] Eosinophils/100 WBC (Bld) 6.2 % Normal . [facility] Comment on above: Performed By: #### C BC, BMP #### [address] Erythrocyte distribution width (RBC) [Ratio] 12.7 % Normal 12.0-14.8 [facility] Comment on above: Performed By: #### C BC, BMP #### [address] Hematocrit (Bld) [Volume fraction] 44.2 % Normal 38.8-50.0 [facility] Comment on above: Performed By: #### C BC, BMP #### [address] Hemoglobin (Bld) [Mass/Vol] 15.1 g/dL Normal 13.0-17.0 [facility] Comment on above: Performed By: #### C BC, BMP #### [address] Lymphocytes (Bld) [#/Vol] 2.6 10*3/uL Normal 1.00-4.8 [facility] Comment on above: Performed By: #### C BC, BMP #### [address] Lymphocytes/100 WBC (Bld) 38.5 % Normal . [facility] Comment on above: Performed By: #### C BC, BMP #### [address] MCH (RBC) [Entitic mass] 32.1 pg Normal 27.5-35.2 [facility] Comment on above: Performed By: #### C BC, BMP #### [address] MCV (RBC) [Entitic vol] 94.1 fL Normal 83.5-101 [facility] Comment on above: Performed By: #### C BC, BMP #### [address] Mean Corpuscular HGB Conc 34.2 g/dL Normal 32.5-35.6 [facility] Comment on above: Performed By: #### C BC, BMP #### [address] Monocytes (Bld) [#/Vol] 0.5 10*3/uL Normal 0.0-0.8 [facility] Comment on above: Performed By: #### C BC, BMP #### [address] Monocytes/100 WBC (Bld) 7.1 % Normal . [facility] Comment on above: Performed By: #### C BC, BMP #### [address] Neutrophils (Bld) [#/Vol] 3.2 10*3/uL Normal 1.8-7.7 [facility] Comment on above: Performed By: #### C BC, BMP #### [place] [address] [place] Neutrophils/100 WBC (Bld) 47.4 % Normal . [facility] Comment on above: Performed By: #### C ROB, BMP #### [address] Nucleated RBC/100 WBC (Bld) [Ratio] 0.1 % Normal 0-0.5 [facility] Comment on above: Performed By: #### C ROB, BMP #### [address] Platelet mean volume (Bld) [Entitic vol] 8.9 fL Normal 6.6-10.1 [facility] Comment on above: Performed By: #### C ROB, BMP #### [address] Platelets (Bld) [#/Vol] 209 10*3/uL Normal 150-450 [facility] Comment on above: Performed By: #### C ROB, BMP #### [address] RBC (Bld) [#/Vol] 4.70 10*6/uL Normal 3.90-5.60 [facility] Comment on above: Performed By: #### C ROB, BMP #### [address] WBC (Bld) [#/Vol] 6.8 10*3/uL Normal 4.5-11.0 [facility] Comment on above: Performed By: #### C ROB, BMP #### [address] Creatinine and Glomerular fi ltration rate.predicted panel (S/P/Bld)Ordered By: Meño Coelho on 01-13-2022 Creatinine [Mass/Vol] 0.73 mg/dL 0.64-1.27 [facility] Eosinophils Auto (Bld) [#/Vo l]Ordered By: Meño Coelho on 01-13-2022 Eosinophils (Bld) [#/Vol] 0.4 10*3/uL 0.0-0.45 [facility] Eosinophils/100 WBC Auto (Bl d)Ordered By: Meño Coelho on 01-13-2022 Eosinophils/100 WBC (Bld) 6.2 % . [facility] Erythrocyte distribution wid th Auto (RBC) [Ratio]Ordered By: Meño Coelho on 01-13-2022 Erythrocyte distribution width (RBC) [Ratio] 12.7 % 12.0-14.8 [facility] Estimated glomerular filtrat ion rate (GFR) non- AmericanOrdered By: Meño Coelho on 01-13-2022 GFR/1.73 sq M.predicted among non-blacks MDRD (S/P/Bld) [Vol rate/Area] > 60 mL/Min [facility] Hematocrit Auto (Bld) [Volum e fraction]Ordered By: Meño Coelho on 01-13-2022 Hematocrit (Bld) [Volume fraction] 44.2 % 38.8-50.0 [facility] Hemoglobin [Mass/volume] in BloodOrdered By: Meño Coelho on 01-13-2022 Hemoglobin (Bld) [Mass/Vol] 15.1 g/dL 13.0-17.0 [facility] Laboratory - Hematology and Cell countsOrdered By: Meño Coelho on 01-13-2022 Nucleated RBC/100 WBC (Bld) [Ratio] 0.1 % 0-0.5 [facility] Leukocytes [#/volume] in Blo od by Automated countOrdered By: Meño Coelho on 01-13-2022 WBC (Bld) [#/Vol] 6.8 10*3/uL 4.5-11.0 [facility] Lymphocytes Auto (Bld) [#/Vo l]Ordered By: Meño Coelho on 01-13-2022 Lymphocytes (Bld) [#/Vol] 2.6 10*3/uL 1.00-4.8 [facility] Lymphocytes/100 WBC Auto (Bl d)Ordered By: Meño Coelho on 01-13-2022 Lymphocytes/100 WBC (Bld) 38.5 % . [facility] MCH Auto (RBC) [Entitic mass ]Ordered By: Meño Coelho on 01-13-2022 MCH (RBC) [Entitic mass] 32.1 pg 27.5-35.2 [facility] MCHC Auto (RBC) [Mass/Vol]Or dered By: Meño Coelho on 01-13-2022 MCHC (RBC) [Mass/Vol] 34.2 g/dL 32.5-35.6 [facility] MCV Auto (RBC) [Entitic vol] Ordered By: Meño Coelho on 01-13-2022 MCV (RBC) [Entitic vol] 94.1 fL 83.5-101 [facility] Monocytes Auto (Bld) [#/Vol] Ordered By: Meño Coelho on 01-13-2022 Monocytes (Bld) [#/Vol] 0.5 10*3/uL 0.0-0.8 [facility] Monocytes/100 WBC Auto (Bld) Ordered By: Meño Coelho on 01-13-2022 Monocytes/100 WBC (Bld) 7.1 % . F [facility] Neutrophils Auto (Bld) [#/Vo l]Ordered By: Meño Coelho on 01-13-2022 Neutrophils (Bld) [#/Vol] 3.2 10*3/uL 1.8-7.7 [facility] Neutrophils/100 WBC Auto (Bl d)Ordered By: Meño Coelho on 01-13-2022 Neutrophils/100 WBC (Bld) 47.4 % . [facility] No Panel InformationOrdered By: Meño Coelho on 01-13-2022 Estimated GFR () > 60 mL/Min [facility] Comment on above: GFR estimated refere nce range: According to KDOQI guidelines, <60 ml/min/1.73m2 is sufficient to diagnose a patient with chronic kidney disease. Pharmacy Creatinine Clearance (Chem 161.10 [facility] Platelet mean volume Auto (B ld) [Entitic vol]Ordered By: Meño Coelho on 01-13-2022 Platelet mean volume (Bld) [Entitic vol] 8.9 fL 6.6-10.1 [facility] Platelets Auto (Bld) [#/Vol] Ordered By: Meño Coelho on 01-13-2022 Platelets (Bld) [#/Vol] 209 10*3/uL 150-450 [facility] RBC Auto (Bld) [#/Vol]Ordere d By: Meño Coelho on 01-13-2022 RBC (Bld) [#/Vol] 4.70 10*6/uL 3.90-5.60 [facility] Serum or plasma anion gap de terminationOrdered By: Meño Coelho on 01-13-2022 Anion gap [Moles/Vol] 12.0 mmol/L 6.0-15.0 [facility] Serum or plasma calcium roseline urement (mass/volume)Ordered By: Meño Coelho on 01-13-2022 Calcium [Mass/Vol] 8.7 mg/dL 8.2-10.2 [facility] Serum or plasma chloride mary jo surement (moles/volume)Ordered By: Meño Coelho on 01-13-2022 Chloride [Moles/Vol] 105 mmol/L 95-114 [facility] Serum or plasma glucose roseline urement (mass/volume)Ordered By: Meño Coelho on 01-13-2022 Glucose [Mass/Vol] 91 mg/dL 70-100 [facility] Comment on above: ADA recommended refe rence rangeRandom Glucose Reference Range is dependent on time and content of last meal. Glucose of more than 200 mg/dL in a nonstressed, ambulatory subject supports the diagnosis of Diabetes Mellitus. Serum or plasma potassium me asurement (moles/volume)Ordered By: Meño Coelho on 01-13-2022 Potassium [Moles/Vol] 3.9 mmol/L 3.5-5.1 [facility] Serum or plasma sodium measu rement (moles/volume)Ordered By: Meño Coelho on 01-13-2022 Sodium [Moles/Vol] 136 mmol/L 136-146 [facility] Serum or plasma total carbon dioxide measurement (moles/volume)Ordered By: Meño Coelho on 01-13-2022 CO2 [Moles/Vol] 22.9 mmol/L 22.0-30.0 [facility] Serum or plasma urea nitroge n measurement (mass/volume)Ordered By: Meño Coelho on 01-13-2022 Urea nitrogen [Mass/Vol] 7 mg/dL 12-20 [facility] CBC AUTO DIFFon 01-11-2022 BASO # 0.0 103/ul Normal 0.0-0.1 [facility] Comment on above: Performed By: #### C BC #### [facility] [address] [place] [address] Dr. Miguel Devries Basophils/100 WBC (Bld) 0.4 % Normal 0.2-2.0 [facility] Comment on above: Performed By: #### C BC #### [facility] [address] [place] [address] Dr. Miguel Devries EO # 0.5 103/ul Normal 0.0-0.7 [facility] Comment on above: Performed By: #### C BC #### [facility] [address] [place] [address] Dr. Miguel Devries Eosinophils/100 WBC (Bld) 5.0 % Normal 0.9-7.0 [facility] Comment on above: Performed By: #### C BC #### [facility] [address] [place] [address] Dr. Miguel Devries Erythrocyte distribution width (RBC) [Ratio] 11.9 % Normal 11.0-15.0 [facility] Comment on above: Performed By: #### C BC #### [facility] [address] [place] [address] Dr. Miguel Devries Hematocrit (Bld) [Volume fraction] 44.8 % Normal 42.0-54.0 [facility] Comment on above: Performed By: #### C BC #### [facility] [address] [place] [address] Dr. Miguel Devries Hemoglobin (Bld) [Mass/Vol] 15.7 g/dL Normal 14.0-18.0 [facility] Comment on above: Performed By: #### C BC #### [facility] [address] [place] [address] Dr. Miguel Devries IG # 0.03 10e3/ul Normal 0.00-0.03 [facility] Comment on above: Performed By: #### C BC #### [facility] [address] [place] [address] Dr. Miguel Devries IG % 0.3 % Normal 0.0-0.5 [facility] Comment on above: Performed By: #### C BC #### [facility] [address] [place] [address] Dr. Miguel Devries LYMPH # 2.5 103/ul Normal 1.2-3.8 [facility] Comment on above: Performed By: #### C BC #### [facility] [address] [place] [address] Dr. Miguel Devries Lymphocytes/100 WBC (Bld) 25.6 % Normal 20.5-60.0 [facility] Comment on above: Performed By: #### C BC #### [facility] [address] [place] [address] Dr. Miguel Devries MANUAL DIFF REQ NO Normal [facility] Comment on above: Performed By: #### C BC #### [facility] [address] [place] [address] Dr. Miguel Devires MCH (RBC) [Entitic mass] 32.2 pg Normal 25.9-34.0 [facility] Comment on above: Performed By: #### C BC #### [facility] [address] [place] [address] Dr. Miguel Devries MCHC (RBC) [Mass/Vol] 35.0 g/dL Normal 29.9-35.2 [facility] Comment on above: Performed By: #### C BC #### [facility] [address] [place] [address] Dr. Miguel Devries MCV (RBC) [Entitic vol] 92.0 fL Normal 80.0-94.0 [facility] Comment on above: Performed By: #### C BC #### [facility] [address] [place] [address] Dr. Miguel Devries MONO # 0.7 103/ul Normal 0.3-0.8 [facility] Comment on above: Performed By: #### C BC #### [facility] [address] [place] [address] Dr. Miguel Devries Monocytes/100 WBC (Bld) 7.2 % Normal 1.7-12.0 [facility] Comment on above: Performed By: #### C BC #### [facility] [address] [place] [address] Dr. Miguel Devries NEUT # 5.9 103/ul Normal 1.4-6.5 [facility] Comment on above: Performed By: #### C BC #### [facility] [address] [place] [address] Dr. Miguel Devries Neutrophils/100 WBC (Bld) 61.5 % Normal 43.0-75.0 [facility] Comment on above: Performed By: #### C BC #### [facility] [address] [place] [address] Dr. Miguel Devries Platelet mean volume (Bld) [Entitic vol] 10.0 fL Normal 9.5-13.5 [facility] Comment on above: Performed By: #### C BC #### [facility] [address] [place] [address] Dr. Miguel Devries PLT 252 103/ul Normal 150-450 [facility] Comment on above: Performed By: #### C BC #### [facility] [address] [place] [address] Dr. Miguel Devries RBC 4.87 106/ul Normal 4.70-6.10 [facility] Comment on above: Performed By: #### C BC #### [facility] [address] [place] [address] Dr. Miguel Devries WBC 9.6 103/ul Normal 4.0-11.0 [facility] Comment on above: Performed By: #### C BC #### [facility] [address] [place] [address] Dr. Miguel Devries CRPon 01-11-2022 CRP [Mass/Vol] mg/L Normal <=1.0 [facility] Comment on above: Performed By: #### C RP, BMP #### [facility] [address] [place] [address] HAND LT WO CONon 01-12-[address] HAND LT WO CON EXAMINATION: CT HAND LT WO CON HISTORY: Swelling COMPARISON: None. TECHNIQUE: Multiplanar CT images of the left hand without contrast. Dose reduction techniques were achieved by using automated exposure control and/or adjustment of mA and/or kV according to patient size and/or use of iterative reconstruction technique. FINDINGS: There is tenosynovitis of the second flexor tendon sheath in the volar-radial aspect of the hand extending from the level of the mid second metacarpal to the level of the second MCP joint. Focal fluid collection/abscess appears to be within the tendon sheath measuring approximately 1.4 x 0.9 x 2.9 cm. Suspect focal myositis of the adjacent interosseous musculature of the second digit. Subcutaneous edema and skin thickening throughout the proximal second digit from the second metacarpal head to the second PIP joint, concerning for cellulitis. No soft tissue gas. No radiopaque foreign bodies in the soft tissues. No CT evidence of acute osseous abnormality. Likely chronic widening of the scapholunate interval, suggesting chronic scapholunate ligament injury. Positive ulnar variance. Mild degenerative change of the first MCP joint. No bony erosions. IMPRESSION: 1. There is tenosynovitis of the second flexor tendon sheath in the volar-radial aspect of the hand extending from the level of the mid second metacarpal to the level of the second MCP joint. Focal fluid collection/abscess appears to be within the tendon sheath measuring approximately 1.4 x 0.9 x 2.9 cm. 2. Suspect focal myositis of the adjacent interosseous musculature of the second digit. 3. Subcutaneous edema and skin thickening throughout the proximal second digit from the second metacarpal head to the second PIP joint, concerning for cellulitis. Electronically authenticated by: ARMAND JUARES Date: 2022-01-11 18:50 Normal [facility] CULTURE BLOODon 01-11-2022 Microscopic examination of blood, culture Culture Observations: No growth at 5 days. Normal [facility] Comment on above: Performed By: #### B LDCX2 #### [facility] [address] [address] [address] Miguel Devries Microscopic examination of blood, culture Culture Observations: No growth at 5 days. Normal [facility] Comment on above: Performed By: #### B LDCX1 #### [facility] [address] [place], [place] [address] Dr. Miguel Devries LACTATE/LACTIC ACIDon 2021 Lactate [Moles/Vol] 1.0 mmol/L Normal 0.4-1.9 [facility] Comment on above: Performed By: #### L ACT ####[facility] [id number] [address]Dr. Miguel Devries PROF CHEM 8 (BAS METB)on Anion gap [Moles/Vol] 10.3 mmol/L Normal [facility] Comment on above: Performed By: #### C RP, BMP #### [facility] [address] [address] [address] Miguel Devries Calcium [Mass/Vol] 9.1 mg/dL Normal 8.5-10.1 [facility] Comment on above: Performed By: #### C RP, BMP #### [facility] [address] [place] [address] Dr. Miguel Devries Chloride [Moles/Vol] 104 mmol/L Normal 98-107 [facility] Comment on above: Performed By: #### C RP, BMP #### [facility] [address] [place] [address] Dr. Miguel Devries CO2 [Moles/Vol] 26.5 mmol/L Normal 21.0-32.0 [facility] Comment on above: Performed By: #### C RP, BMP #### [facility] [address] [place] [address] Dr. Miguel Devries Creatinine [Mass/Vol] 0.81 mg/dL Normal 0.70-1.30 [facility] Comment on above: Performed By: #### C RP, BMP #### [facility] [address] [address] [address] Miguel Devries EGFR-AF IRISH >60 Normal >=60 [facility] Comment on above: Performed By: #### C RP, BMP #### [facility] [address] [address] [address] Miguel Devries EGFR-NON AF IRISH >60 Normal >=60 [facility] Comment on above: Performed By: #### C RP, BMP #### [facility] [address] [address] [address] Miguel Devries Glucose [Mass/Vol] 96 mg/dL Normal 74-106 [facility] Comment on above: Performed By: #### C RP, BMP #### [facility] [address] [address] [address] Miguel Devries Potassium [Moles/Vol] 3.8 mmol/L Normal 3.5-5.1 [facility] Comment on above: Performed By: #### C RP, BMP #### [facility] [address] [address] [address] Miguel Devries Sodium [Moles/Vol] 137 mmol/L Normal 136-145 [facility] Comment on above: Performed By: #### C RP, BMP #### [facility] [address] [address] [address] Miguel Devries Urea nitrogen [Mass/Vol] 10.0 mg/dL Normal 7.0-18.0 [facility] Comment on above: Performed By: #### C RP, BMP #### [facility] [address] [place] [address] Dr. Miguel Devries Urea nitrogen/Creatinine [Mass ratio] 12.3 mg/mg Normal [facility] Comment on above: Performed By: #### C RP, BMP #### [facility] [address] [place] [address] Dr. Miguel Devries SED RATE [facility] 2021 SED RATE 13 mm/hr Normal <=15 [facility] Comment on above: Performed By: #### S EDR #### [facility] [address] [place] [address] Dr. Miguel Devries Drug Screen,Urineon 09-20-19 22 Amphetamine Screen,Urine Positive High Negative [facility] Comment on above: Performed By: #### U RDS #### [facility] [address] [place] [address] [place] Barbiturate Screen,Urine Negative Normal Negative [facility] Comment on above: Performed By: #### U RDS #### [facility] [address] [place] [address] [place] Benzodiazepines Screen,Urine Negative Normal Negative [facility] Comment on above: Performed By: #### U RDS #### [address] Cannabinoid Screen,Urine Positive High Negative [facility] Comment on above: Result Comment: Thes e are unconfirmed results and should not be used for legal purposes. Drug Cut-Off Concentration: AMPH 1000 ng/mL SHERRIE 200 ng/mL MONICA 200 ng/mL COCM 300 ng/mL OP 300 ng/mL PCP 25 ng/mL THC 20 ng/mL PERFORMED BY: [place] [address] PATHOLOGIST [employer]ER JENNY ALEMAN M.D. Performed By: #### U RDS #### [address] Cocaine Screen,Urine Negative Normal Negative [facility] Comment on above: Performed By: #### U RDS #### [address] Opiate Screen,Urine Negative Normal Negative [facility] Comment on above: Performed By: #### U RDS #### [address] Phencyclidine Screen,Urine Negative Normal Negative [facility] Comment on above: Performed By: #### U RDS #### [address] Marcos 09-19-2021 L -- Specimen: [id number] Received: 09/19/21 Status: JHON Norman Num: [id number] Spec Type: Surgical Subm Dr: Marilyn Rao MD Tissues: A Skin-Other than Cyst, tag, debridement or plastic repair (LT INDEX FINGER) Procedures: HE Stain, Gross/Micro L3 -- Patient Age/Sex Location Account Attending Physician -- Sukh Cisneros/M [place] [id number] Marilyn Rao MD -- SPEC NUM: [id number] RECD: 09/19/21 STATUS: JHON NORMAN NUM: [id number] EKATERINA: 09/19/21- [facility] DR: Marilyn Rao MD ENTERED: 09/19/[address] [facility] [address]: SUSANA TYPE: Surgical DEPT: S ORDERED: HE Stain, Gross/Micro L3 ORDERED: HE Stain, Gross/Micro L3 Pathological Diagnosis Soft tissue, left index finger, excision: -Ganglion cyst Clinical Information None provided Gross Description Received in formalin labeled with the patient's name, number and soft tissue mass are 2 unoriented harris tissue fragments that measure 0.8 cm and 0.9 cm. Bisected. Entirely submitted in one cassette labeled A1. Type of Fixative: 10% Neutral Buffered Formalin (SM/SK) Microscopic Description One glass slide with H and E stain material [place]. The microscopic findings support the above diagnosis. CPT Codes 46530 -- -- Specimen: [id number] Received: 09/19/21 Status: JHON Turnermikel Num: [id number] Spec Type: Surgical Subm Dr: Marilyn Rao MD Tissues: A Skin-Other than Cyst, tag, debridement or plastic repair (LT INDEX FINGER) Procedures: HE Stain, Gross/Micro L3 -- Patient: Sukh Cisneros [id number] (Continued) -- Signed (signatu re on file) Lilli Sheehan MD 09/23/21 1859 [facility] COVID-19 FRon 09-17-2021 SARS-CoV-2 (COVID-19) RNA SHA+probe Ql (Unsp spec) Negative Normal Negative [facility] Comment on above: Order Comment: Healt hcare Worker?: N Result Comment: Testing for SARS-CoV-2 by RT-PCR This test was developed and its performance characteristics determined by [employer] and validated at the [facility]. This test has not been FDA cleared or approved. This test has been authorized by FDA under an Emergency Use Authorization (EUA). This test has been validated in accordance with the FDA's Guidance Document (Policy for Diagnostics Testing in Laboratories Certified to Perform High Complexity Testing under CLIA prior to Emergency Use Authorization for Coronavirus Disease-2019 during the Public Health Emergency) issued on June 30, 2019. This test is only authorized for the duration of time the declaration that circumstances exist justifying the authorization of the emergency use of in vitro diagnostic tests for detection of SARS-CoV-2 virus and/or diagnosis of COVID-19 infection under section 564(b)(1) of the Act, 21 U.S.C. 360bbb-3(b)(1), unless the authorization is terminated or revoked sooner. PERFORMED BY: [place] [address] PATHOLOGIST [employer]ADER JENNY ALEMAN M.D. Performed By: #### C OVID 19 [facility] #### [address] XR hand LT min 3V*on 022 XR hand LT min 3V* [facility] [address] [place] [address] [place] [address] XRay Report Signed Patient: Sukh Cisneros MR#: [id number] : 1980 Acct:[id number] Age/Sex: 41 / M ADM Date: 07/29/21 Loc: [facility] Room: Type: [facility] Attending Dr: Collins Cruz MD Ordering Provider: Collins Cruz MD Date of Service: 07/29/21 XR/XR hand LT min 3V*: Left hand pain Copies to: Collins Cruz MD LEFT HAND - 3 views CLINICAL DATA: Increased pain following carpal tunnel release. Lump at the base of the second proximal phalanx. COMPARISON: 09/09/2019 AP, lateral and oblique views were obtained. There is no evidence of fracture or dislocation. There are no significant soft tissue abnormalities. No radiopaque foreign bodies are noted. XR/XR hand LT min 3V* IMPRESSION: NO ACUTE BONY FINDINGS. Impression dictated by: Calli Dixon M.D.07/29/2021 1:14 PM Dictation Location: RADIO-PC-11 Transcribed By: [facility] 07/29/21 131 Dictated By: Calli Dixon MD 07/29/21 131 Signed By: 07/29/21 131 Normal [facility] SARS-CoV-2 (COVID-19) RNA SHA+probe Ql (Unsp spec) Negative Normal Negative [facility] Comment on above: Order Comment: Healt hcare Worker?: N Result Comment: Testing for SARS-CoV-2 by RT-PCR This test was developed and its performance characteristics determined by [employer] and validated at the [facility]. This test has not been FDA cleared or approved. This test has been authorized by FDA under an Emergency Use Authorization (EUA). This test has been validated in accordance with the FDA's Guidance Document (Policy for Diagnostics Testing in Laboratories Certified to Perform High Complexity Testing under CLIA prior to Emergency Use Authorization for Coronavirus Disease-2019 during the Public Health Emergency) issued on June 30, 2019. This test is only authorized for the duration of time the declaration that circumstances exist justifying the authorization of the emergency use of in vitro diagnostic tests for detection of SARS-CoV-2 virus and/or diagnosis of COVID-19 infection under section 564(b)(1) of the Act, 21 U.S.C. 360bbb-3(b)(1), unless the authorization is terminated or revoked sooner. PERFORMED BY: [facility] [address] [place] [address] PATHOLOGIST [employer]ER [employer]ADER JENNY ALEMAN M.D. Performed By: #### C OVID 19 [facility] #### [facility] [address] [id number] [facility] Consenton 11-01-2019 Consent [id number] #[id number]:127 [facility] Registrationon 11-01-2019 Registration [id number] #[id number]:127 [facility] Vital Signs Date Time Vital Sign Value Performing Clinician Facility 06-09-2024 09:40-0400 Body height 177.8 cm [facility] 06-09-2024 09:40-0400 Body mass index (BMI) [Ratio] 32.8 kg/m2 [facility] 06-09-2024 09:40-0400 Body temperature 97.8 [degF] [facility] 06-09-2024 09:40-0400 Body weight 103.87 kg [facility] 06-09-2024 09:40-0400 Diastolic blood pressure 90 mm[Hg] [facility] 06-09-2024 09:40-0400 Heart rate 94 /min [facility] 06-09-2024 09:40-0400 SaO2% (BldA) [Mass fraction] 96 % [facility] 06-09-2024 09:40-0400 Systolic blood pressure 128 mm[Hg] [facility] 12-31-2023 10:37-0400 Body height 177.8 cm [facility] 12-31-2023 10:37-0400 Body mass index (BMI) [Ratio] 32 kg/m2 [facility] 12-31-2023 10:37-0400 Body temperature 96.7 [degF] [facility] 12-31-2023 10:37-0400 Body weight 101.15 kg [facility] 12-31-2023 10:37-0400 Diastolic blood pressure 90 mm[Hg] [facility] 12-31-2023 10:37-0400 SaO2% (BldA) [Mass fraction] 98 % [facility] 12-31-2023 10:37-0400 Systolic blood pressure 138 mm[Hg] [facility] 11-19-2023 14:00-0400 Body height 177.8 cm [facility] 11-19-2023 14:00-0400 Body mass index (BMI) [Ratio] 31.8 kg/m2 [facility] 11-19-2023 14:00-0400 Body weight 100.69 kg [facility] 11-19-2023 14:00-0400 Diastolic blood pressure 88 mm[Hg] [facility] 11-19-2023 14:00-0400 Heart rate 97 /min [facility] 11-19-2023 14:00-0400 SaO2% (BldA) [Mass fraction] 97 % [facility] 11-19-2023 14:00-0400 Systolic blood pressure 138 mm[Hg] [facility] 12-16-2022 14:10-0400 Body height 177.8 cm Kylee Lizarraga Other [facility] Other 12-16-2022 14:10-0400 Body mass index (BMI) [Ratio] 33.4 kg/m2 Kylee Lizarraga Other [facility] Other 12-16-2022 14:10-0400 Body temperature 98.1 [degF] Kylee Lizarraga Other [facility] Other 12-16-2022 14:10-0400 Body weight 105.6 kg Kylee Lizarraga Other [facility] Other 12-16-2022 14:10-0400 Diastolic blood pressure 98 mm[Hg] Kylee Lizarraga Other [facility] Other 12-16-2022 14:10-0400 Respiratory rate 18 /min Kylee Lizarraga Other [facility] Other 09-19-2023 14:10-0400 SaO2% (BldA) [Mass fraction] 97 % Kylee Lizarraga Other [facility] Other 12-16-2022 14:10-0400 Systolic blood pressure 149 mm[Hg] Kylee Lizarraga Other [facility] Other 03-13-2022 18:45-0500 Body height 177.8 cm Hazel Garault Other [facility] Other 03-13-2022 18:45-0500 Body mass index (BMI) [Ratio] 32.71 kg/m2 Hazel Garault Other [facility] Other 03-13-2022 18:45-0500 Body temperature 97.1 [degF] Hazel Lm Other [facility] Other 03-13-2022 18:45-0500 Body weight 103.42 kg Hazel Garault Other [facility] Other 03-13-2022 18:45-0500 Diastolic blood pressure 104 mm[Hg] Hazel Garault Other [facility] Other 03-13-2022 18:45-0500 Respiratory rate 18 /min Hazel Garault Other [facility] Other 03-13-2022 18:45-0500 SaO2% (BldA) [Mass fraction] 98 % Hazel Lm Other [facility] Other 03-13-2022 18:45-0500 Systolic blood pressure 155 mm[Hg] Hazel Lm Other [facility] Other 01-19-2022 05:00-0400 Diastolic blood pressure 98 mm[Hg] [facility] Work Phone: [facility] 01-19-2022 05:00-0400 Heart rate 90 /min [facility] Work Phone: [facility] 01-19-2022 05:00-0400 Respiratory rate 18 /min [facility] Work Phone: [facility] 01-19-2022 05:00-0400 SaO2% (BldA) [Mass fraction] 99 % [facility] Work Phone: [facility] 01-19-2022 05:00-0400 Systolic blood pressure 164 mm[Hg] [facility] Work Phone: [facility] 01-18-2022 22:45-0400 Body height 177.8 cm [facility] Work Phone: [facility] 01-18-2022 22:45-0400 Body weight 95.25 kg [facility] Work Phone: [facility] 01-18-2022 22:44-0400 Body temperature 98.5 [degF] [facility] Work Phone: [facility] 01-12-2022 22:28-0400 Body temperature 97.9 [degF] [facility] Work Phone: [facility] 01-12-2022 22:28-0400 Diastolic blood pressure 97 mm[Hg] [facility] Work Phone: [facility] 01-12-2022 22:28-0400 Heart rate 89 /min [facility] Work Phone: [facility] 01-12-2022 22:28-0400 Respiratory rate 20 /min [facility] Work Phone: [facility] 01-12-2022 22:28-0400 SaO2% (BldA) [Mass fraction] 98 % [facility] Work Phone: [facility] 01-12-2022 22:28-0400 Systolic blood pressure 154 mm[Hg] [facility] Work Phone: [facility] 01-12-2022 22:24-0400 Body height 177.8 cm [facility] Work Phone: [facility] 01-12-2022 22:24-0400 Body weight 104.32 kg [facility] Work Phone: [facility] 09-03-2021 10:00-0400 Body height 177.8 cm Marilyn Caseandrew Other [facility] Other 09-03-2021 10:00-0400 Body mass index (BMI) [Ratio] 35.01 kg/m2 Marilynmicheal Rao Other [facility] Other 09-03-2021 10:00-0400 Body weight 110.68 kg Marilynmicheal Rao Other [facility] Other 07-29-2021 12:15-0400 Body height 177.8 cm Collins Olexa Other [facility] Other 07-29-2021 12:15-0400 Body mass index (BMI) [Ratio] 35.01 kg/m2 Collins Olexa Other [facility] Other 07-29-2021 12:15-0400 Body weight 110.68 kg Collins Olexa Other [facility] Other 07-09-2021 11:15-0400 Body height 177.8 cm Collins Olexa Other [facility] Other 07-09-2021 11:15-0400 Body mass index (BMI) [Ratio] 35.01 kg/m2 Collins Cruz Other [facility] Other 07-09-2021 11:15-0400 Body weight 110.68 kg Collins Cruz Other [facility] Other Encounters Encounter Date Encounter Type Care Provider Facility Start: 06-09-2024 End: 06-09-2024 ambulatory [facility] Work Phone: Start: 06-09-2024 End: 06-09-2024 Patient encounter procedure [facility] Physician [facility] Work Phone: Start: 12-31-2023 End: 12-31-2023 ambulatory [facility] Work Phone: Start: 12-31-2023 End: 12-31-2023 Patient encounter procedure [facility] Physician [facility] Work Phone: Start: 11-19-2023 Patient encounter status [facility] Start: 11-19-2023 End: 11-19-2023 ambulatory [facility] Work Phone: Start: 11-19-2023 End: 11-19-2023 Encounter for general adult medical examination without abnormal findings [facility] Start: 11-19-2023 End: 11-19-2023 Patient encounter [facility] Start: 12-16-2022 End: 12-16-2022 ambulatory Kylee Lizarraga Other [facility] Other Start: 12-16-2022 Office outpatient vi sit 15 minutes Kylee Lizarraga [facility] Start: 08-27-2022 End: 08-27-[address] DELANEY SYED Facility:[facility] Start: 03-13-2022 End: 03-13-2022 ambulatory Hazel Amato Other [facility] Other Start: 03-13-2022 Office outpatient vi sit 15 minutes Hazel Amato [facility] Start: 02-12-2022 End: 02-12-2022 ambulatory Marilyn Rao Other [facility] Other Start: 02-12-2022 Office outpatient vi sit 15 minutes Marilyn Jalen [facility] Start: 01-31-2022 Patient encounter procedure Marilyn Calvey [facility] Start: 01-31-2022 End: 01-31-2022 ambulatory [facility] Work Phone: [facility] Work Phone: Start: 01-31-2022 End: 01-31-2022 Departed Referred [facility] Dept Work Phone: [facility] [place] Start: 01-29-2022 End: 01-29-[address] ALVINO VANCE . Facility:[facility] Start: 01-24-2022 End: 01-24-[address] MADELEINE COELHO Facility:[facility] Start: 01-23-2022 End: 01-24-[address] DOCTOR HERRMANN Facility:[facility] Start: 01-19-2022 End: 01-19-2022 Emergency department patient visit [facility] Dept Facility:[facility] Start: 01-18-2022 End: 01-19-2022 Emergency department patient visit [facility] Dept Work Phone: [facility] Start: 01-18-2022 End: 01-18-[address] EL SOLIS Facility:[facility] Start: 01-17-2022 End: 01-17-[address] DOCTOR HERRMANN Facility:[facility] Start: 01-14-2022 End: 01-14-2022 ambulatory Marilyn Rao Other [facility] Other Start: 01-14-2022 Office outpatient vi sit 15 minutes Marilyn Calvey [facility] Start: 01-13-2022 End: 01-13-2022 [facility] Start: 01-12-2022 End: 01-13-2022 Emergency department patient visit [facility] Dept Work Phone: [facility] Start: 01-11-2022 End: 01-11-[address] VIRAMONTES [facility] Facility: Start: 10-04-2021 End: 10-04-2021 ambulatory Marilyn Willoughbyey Other [facility] Other Start: 10-04-2021 Postop follow up vis it related to original px Marilyn Calvey [facility] Start: 09-19-2021 End: 09-19-2021 [facility] Start: 09-17-2021 End: 09-17-2021 ambulatory Marilyn R Caseey Facility:[facility] Start: 09-03-2021 End: 09-03-2021 ambulatory Marilyn Calvey Other [facility] Other Start: 09-03-2021 Office outpatient ne w 45 minutes Marilyn Calvey [facility] Start: 07-29-2021 Office outpatient vi sit 15 minutes Collins Olexa [facility] Start: 07-29-2021 End: 07-29-2021 ambulatory Collins Olexa [facility] Other Start: 07-09-2021 End: 07-09-2021 ambulatory Collins Olexa Other [facility] Other Start: 07-09-2021 Postop follow up vis it related to original px Collins Olexa [facility] Start: 07-01-2021 End: 07-01-2021 ambulatory Collins Olexa Other [facility] Other Start: 07-01-2021 Telephone encounter Collins Cruz [facility] Start: 06-26-2021 End: 06-26-2021 ambulatory Collins Olexa Facility:[facility] Start: 06-25-2021 End: 06-25-2021 ambulatory Collins Olexa Other [facility] Other Start: 06-25-2021 Telephone encounter Collins Doanxa [facility] Start: 06-24-2021 End: 06-24-2021 ambulatory Collins Olexa Facility:[facility] Plan of Treatment Date Care Activity Detail Author Start: 06-09-2024 Patient referral [facility] Work Phone: Start: 01-31-2022 [facility] Aerobic Culture Aerobic Culture [facility] Anaerobic Culture Anaerobic Culture [facility] Comprehensive metabo lic 1999 panel - Serum or Plasma [facility] Comprehensive metabo lic 1999 panel - Serum or Plasma [facility] Microscopic observat ion [Identifier] in Unspecified specimen by Gram stain Gram Stain [facility] Patient Education [facility] Work Phone: Patient referral [facility] Work Phone: [facility] XR Lumbar spine Views [facility] Payers Date Payer Category Payer Self-pay [id number] 1980 Unknown [id number] 2.16.84 [id number] 1980 Unknown [id number] .16.84 [id number] 1980 Unknown [id number] .16.84 0.1.130497.3.579.2.593 1980 Unknown [id number] .16.84 0.1.887520.3.579.2.593 1980 Unknown [id number] 2.16.84 0.1.385657.3.579.2.593 1980 Unknown [id number] 2.16.84 0.1.601733.3.579.2.593 1980 Unknown [id number] 2.16.84 0.1.392685.3.579.2.593 1959 Medicaid [id number] 1959 Unknown [id number] 2.1 [id number] Medicaid [id number] Unknown [id number] 2.16.8 40.1.457996.3.579.2.531 Unknown [id number] 2.16.8 40.1.971295.3.579.2.531 Unknown [id number] 2.16.8 40.1.263394.3.579.2.531 Unknown [id number] 2.16.8 40.1.157639.3.579.2.531 Unknown [id number] 2.16.8 40.1.342747.3.579.2.531 Unknown [id number] 2.16.8 40.1.649176.3.579.2.531 Unknown [id number] 2.16.8 40.1.777684.3.579.2.531 Unknown [id number] 2.16.8 40.1.841861.3.579.2.531 Social History Date Type Detail Facility Unknown if ever smoked [facility] Other Sex Assigned At Sex Assigned At Bir th [facility] Other Start: 01-13-2022 Tobacco smoking status LAIS Smoker (finding) [facility] Start: 1980 Sex Assigned At Male F [facility] Start: 01-19-2022 End: 01-19-2022 Tobacco smoking status NHIS Never smoked tobacco (finding) [facility] Start: 11-19-2023 End: 12-31-2023 Tobacco smoking status LAIS Ex-smoker (finding) [facility] Start: 06-09-2024 Sex Male (finding) [facility] Clinical Notes 06-25-2021 to 12-16-2022 Note Date & Type Note Facility 12-16-2022 Evaluation note Encounter Date Diagnosis Assessment Notes Nov, Dental infection (ICD-10 - K04.7) Discussed with patient exam is consistent with dental infection. Will treat with pen vk. Probiotic supplement encouraged. Finish entire course. May use ibuprofen 800 every 8 hours, Tylenol in between as needed. Discussed some of dental pain is likely related to nerve exposure of tooth and will not completely resolve until tooth is properly treated. Discussed importance of following up with dentist as soon as possible as infection will likely recur until proper treatment of tooth. ER if any rapidly spreading erythema, edema to face, fever. Patient verbalized understanding of treatment plan. Nov, Jaw pain (ICD-10 - R68.84) secondary to dental infection. see above plan [facility] Other 05-31-2023 NotePROCEDURE: XR ELBOW RT MIN 3 VIEWS HISTORY: Pain ; right elbow pain, hand numbness, no known injury COMPARISON: None. FINDINGS: BONES:Small degenerative osteophyte projecting from the lateral humeral condyle at insertion of extensor tendons. No fracture, dislocation, or significant joint space narrowing. SOFT TISSUES:No visible soft tissue swelling. EFFUSION:None visible. OTHER: Negative. IMPRESSION: 1. No acute bone abnormality or significant degenerative joint disease. 2. Mild degenerative changes as detailed above. Electronically authenticated by: DELANEY SYED Date: 2022-08-27 08:32[facility]12-15-2022 Evaluation note* Encounter Date Diagnosis Assessment Notes Treatment Notes Treatment Clinical Notes Feb, Contact with and (suspected) exposure to other viral communicable diseases (ICD-10 - Z20.828) Feb, Influenza A (ICD-10 - J10.1) Take medications as directed. Rest and increase fluid intake. Take meds with food to prevent stomach upset. Use inhaler as needed for coughing spells and SOB. It is better to use inhaler a few times a day over the next 2-3 days. Follow up with primary care provider if symptoms do not improve with treatment plan, although it may take a few weeks for the cough to go away Feb, Bronchitis (ICD-10 - J40) Symptoms presented today are related to the Flu. May use OTC medications such as Mucinex DM, Flu meds, etc. Kids can use Dimatapp or Delsym. Continue tylenol/ibu for general discomfort. Encourage fluids. Antibiotics will not treat the flu. Symptoms should improve within the next 4-7 days. [facility] Other 11-16-2022 Evaluation note* Encounter Date Diagnosis Assessment Notes Treatment Notes Treatment Clinical Notes Jan, Abscess of hand, left (ICD-10 - L02.512) Patient is progressing well at this time. We will refill antibiotics to ensure there is no residual infection. Continue to monitor for signs or symptoms of infection. Formal occupational therapy ordered today to decrease pain and increase function. Instructed on use of tylenol for pain, may use norco for severe pain. [facility] Other 11-04-2022 Evaluation note* Encounter Date Diagnosis Assessment Notes Treatment Notes Treatment Clinical Notes Jan, Abscess of hand, left (ICD-10 - L02.512) I and D performed in office, culture obtained. Patient instructed on soaking protocal, given handout. Rx given for [place] [facility] Other 10-18-2022 Evaluation note* Encounter Date Diagnosis Assessment Notes Treatment Notes Treatment Clinical Notes Dec, Ganglion cyst of finger of left hand (ICD-10 - M67.442) Discussed oral and injectable steroid and hand therapy. Rx given for Medrol Dosepak, also instructed on the use of Voltaren Gel. Also given order for occupational therapy and placed in TKO splint Dec, Other specified postprocedural states (ICD-10 - Z98.890) [facility] Other 07-08-2022 Evaluation note* Encounter Date Diagnosis Assessment Notes Treatment Notes Treatment Clinical Notes Sep, Ganglion cyst of finger of left hand (ICD-10 - M67.442) Sutures removed today, patient tolerated well. Patient instructed to slowly progress as tolerated. Patient instructed on wound care Sep, Other specified postprocedural states (ICD-10 - Z98.890) Sep, Visit for suture removal (ICD-10 - Z48.02) [facility] Other 06-07-2022 Evaluation note* Encounter Date Diagnosis Assessment Notes Treatment Notes Treatment Clinical Notes Aug, Ganglion cyst of finger of left hand (ICD-10 - M67.442) We will proceed with surgical excision of mass [facility] Other 05-02-2022 Evaluation note* Encounter Date Diagnosis Assessment Notes Treatment Notes Treatment Clinical Notes July, Left hand pain (ICD-10 - M79.642) July, Mass of left finger (ICD-10 - R22.32) We performed a 3/1cc marcaine / kenalog cortisone injection into the palpable mass near the index mcp joint under sterile technique. Patient tolerated the injection well without adverse reaction. Additionally we will refer patient to Dr. Rao for further evaluation. Conern this nodule may be associated with digital nerve. July, History of carpal tunnel release (ICD-10 - Z98.890) Patient is progressing well from surgery. [facility] Other 04-12-2022 Evaluation note* Encounter Date Diagnosis Assessment Notes Treatment Notes Treatment Clinical Notes Jun, Left carpal tunnel syndrome (ICD-10 - G56.02) Jun, Right carpal tunnel syndrome (ICD-10 - G56.01) Jun, Other specified postprocedural states (ICD-10 - Z98.890) Patient is progressing well from surgery. We discussed the importance of continuing to work on stretching and strength exercise. Sutures removed without difficulty and patient tolerated well with no adverse reaction. Jun, Visit for suture removal (ICD-10 - Z48.02) [facility] Other 03-29-2022 Evaluation note* Encounter Date Diagnosis Assessment Notes Treatment Notes Treatment Clinical Notes May, Other specified postprocedural states (ICD-10 - Z98.890) [facility] Other Evsqgation noteNo assessment information available [facility] Work Phone: Evaluation note* Diagnosis Onset Date Resolution Status Anxiety acute Depression acute Screening for deficiency anemia acute Screening for lipid disorders acute Screening for metabolic disorder acute Wellness examination acute [facility] Work Phone: Evaluation note* Diagnosis Onset Date Resolution Status Anxiety acute Depression acute Screening for deficiency anemia acute Screening for lipid disorders acute Screening for metabolic disorder acute Wellness examination acute Anxiety acute [facility] Work Phone: Evaluation note* Diagnosis Onset Date Resolution Status Admit Date Blood in stool acute May 9:35am GERD (gastroesophageal reflu x disease) acute June 09, 2024 9:35am Low back pain acute June 09, 2024 9:35am Right upper quadrant pain acute June 09, 2024 9:35am [facility] Work Phone: History general Narrative - Reported* Type Description Date Medical History Carpal tunnel syndrome of right wrist Medical History Carpal tunnel syndrome of left w rist Medical History Kidney stone Surgical History appendectomy 2011 Hospitalization History see above [facility] Other Hisbygl general Narrative - Reported* Type Description Date Medical History Carpal tunnel syndrome of right wrist Medical History Carpal tunnel syndrome of left w rist Medical History Kidney stone Surgical History appendectomy 2011 Surgical History left carpal tunnel release Hospitalization History see above [facility] Other Hospital Discharge instructions Additional Instructions Follow-up Dr. Amador 1 to 2 days [facility] are [facility] Discharge instructions Additional Instructions Do not drive or operate heavy machinery while taking narcotics or muscle relaxers Follow-up with your orthopedic surgeon, you can also call the phone number below for neurosurgery Perform the stretches and exercises Return for worsening numbness or complete weakness, headache, or other worsening concerns or symptoms[facility] Work Phone: Hospital Discharge instructionsAmbulatory Orders* Referral to Gastroenterology Time Frame: 06/09/24, Location: None Selected * Referral to Pain Management Time Frame: 06/09/24, Location: None Selected [facility] Work Phone: Summary Purpose Family History Relationship Condition Age at Onset Recorded Date/T deepali father Malignant neoplasm Unknown Relationship Condition Age at Onset Recorded Date/T deepali father Malignant neoplasm Unknown father Unknown Malignant neoplasm Unknown Advance Directives Advance Directive Response Recorded Date/ Time Advance Directives No May 05, 2018 2:55pm Advance Directive Response Recorded Date/ Time Advance Directives No May 05, 2018 1:55pm Chief Complaint and Reason for Visit Chief Complaint L hand pain Chief Complaint L hand pain Lt arm pain Chief Complaint new patient , est ca re Reason for Visit Anxiety Depression Screening for deficiency anemia Screening for lipid disorders Screening for metabolic disorder Wellness examination Chief Complaint new patient , est ca re Change Meds Reason for Visit Anxiety Depression Screening for deficiency anemia Screening for lipid disorders Screening for metabolic disorder Wellness examination Anxiety Chief Complaint Admit Date med refill June 09, 2024 9:3 5am Reason for Visit Admit Date Blood in stool June 09, 2024 9:3 5am GERD (gastroesophageal reflux disease) M arch 2024 9:35am Low back pain June 09, 2024 9:3 5am Right upper quadrant pain June 09 9:35am Additional Source Comments (unrecognized sect ion and content) No Status Records FoundNo Status Records FoundNo Status Records Found INFORMATION SOURCE (unrecogn ized section and content) DATE CREATED AUTHOR 11/02/2019 [facility] DATE CREATED AUTHOR AUTHOR'S ORGANIZ ATION 05/03/2022 [facility] DATE CREATED AUTHOR AUTHOR'S ORGANIZ ATION 09/05/2022 [facility] REASON FOR VISIT (unrecogniz ed section and content) post op scriptRecheck Left W ristpost op questionsOP 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 LT HAND INDEX FING PAIN (HAD CTR IN [place])Left Hand NoduleRecheck Left Index FingerLeft Hand Pain and SwellingLeft Hand PainRecheck Left HandCONGESTION COUGH SORE THROATTOOTH INFECTION, PAIN Care Teams (unrecognized sec tion and content) Team Status: Inactive Member Role Status [facility] Provider Active Meño Coelho MD Emergency Provider Active Team Status: Active Member Role Status Dates [facility] Primary Care Provider Active Team Status: Inactive Member Role Status Dates [facility] Primary Care Provider Active Mino Gallego DO Emergency Provider Active Team Status: Inactive Member Role Status Dates [facility] Primary Care Provider Active Marilyn Rao MD Attending Provider Active Team Status: Active Member Role Status Dates La Contrersa [employer] 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-C Primary Care Provider Active Team Status: Inactive Member Role Status Dates La Contreras APRN 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-C Primary Care Provider, Attending Provider Active Start: November 19, 2023 End: November 19, 2023 Team Status: Inactive Member Role Status Dates La Contreras APRN 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-C Primary Care Provider, Attending Provider Active Start: December 31, 2023 End: December 31, 2023 Team Status: Inactive Member Role Status Dates La Contreras APRN 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-C Primary Care Provider, Attending Provider Active Start: June 09, 2024 End: June 09, 2024 Goals (unrecognized section and content) Goals may be documented in a n alternate section FOR RECORDS PERTAINING TO PATIENTS WHO ARE OR HAVE BEEN ENROLLED IN A CHEMICAL DEPENDENCY/SUBSTANCEABUSE PROGRAM, SOME INFORMATION MAY BE OMITTED. This clinical summary was aggregated from multiple sources. Caution should be exercised in using it in the provision of clinical care. This summary normalizes information from multiple sources, and as a consequence, information in this document may materially change the coding, format and clinical context of patient data. In addition, data may be omitted in some cases. CLINICAL DECISIONS SHOULD BE BASED ON THE PRIMARY CLINICAL RECORDS. [facility] provides no warranty or guarantee of the accuracy or completeness of information in this document.
[2024-06-11] MEDS: KETOROLAC TROMETHAMINE 60 MG/2 ML VIAL IM (17:26)
[2024-06-11] MEDS: ORPHENADRINE 60 MG/ 2 ML VIAL IM (17:26)
--- NOTE | 2024-06-11 17:29 | ED_ITS ---
HPI HPI - Back Pain/Injury General Chief Complaint: Back Pain/Injury Stated Complaint: LE PAIN LOWER BACK PAIN Time Seen by Provider: 06/11/24 16:50 Source: patient Mode of arrival: walk-in History of Present Illness HPI Narrative: 43-year-old male presents here with chief complaint bilateral lower extremity discomfort. She states she has had sciatic pain for the last 5 days. He was moving furniture and developed pain several days later. States he recently saw a primary care physician told him of this pain and he had a lumbar x-ray ordered as well as basic lab work. Patient denies any numbness ting or loss of bowel or bladder function. States he is just uncomfortable at night when he tries to sleep. He is here for pain medication and relief of his symptoms. He is scheduled for a gallbladder ultrasound this week as well. He has no fevers chills nausea or vomiting. Patient ambulated into the emergency room without any difficulty. No signs of quada equina. Related Data Home Medications ?Medication ?Instructions ?Recorded ?Confirmed buspirone 5 mg tablet mg 06/11/24 escitalopram oxalate 20 mg tablet mg 06/11/24 trazodone 50 mg tablet mg 06/11/24 Allergies Allergy/AdvReac Type Severity Reaction Status Date / Time No Known Drug Allergies Allergy Verified 06/11/24 16:49 Opioid HPI Opioid Management Most Recent Opioid Data: Last MAY Pain Assessment 06/11/24 17:26 Review of Systems ROS Narrative All Systems are negative except as noted/marked.All systems reviewed and otherwise negative PFSH PFSH Social History Little interest or pleasure in doing things: not at all Feeling down, depressed, or hopeless: not at all Exam Narrative Exam Narrative: Nurses note and vital signs reviewed and patient is not hypoxic. General: The patient appears well and in no apparent distress. Patient is resting comfortably on cart. Skin: Warm, dry, no pallor noted. There is no rash noted. Head: Normocephalic, atraumatic Eye: Normal conjunctiva, no drainage, EOMI. PERRL Ears, Nose, Mouth, and Throat: oral mucosa is moist. Nares patent. Mouth without vesicles. Ear canals patent. Tm's without Erythema Cardiovascular: Regular Rate and Rhythm Respiratory: Patient is in no distress, no accessory muscle use, lungs are clear to auscultation, no wheezing, rales or rhonchi Back: non-tender, no CVA tenderness bilaterally to percussion. GI: Normal bowel sounds, no tenderness to palpation, no masses appreciated. No rebound, guarding, or rigidity noted. Musculoskeletal: The patient has no evidence of calf tenderness, no pitting edema, symmetrical pulses noted bilaterally Neurological: A&O x4, normal speech Psychiatric: Cooperative Constitutional Vital Signs, click to edit/add: Last Vital Signs Temp 98.1 F 06/11/24 16:49 Pulse 111 H 06/11/24 16:49 Resp 18 06/11/24 16:49 BP 147/103 H 06/11/24 16:49 Pulse Ox 97 06/11/24 16:49 O2 Del Method Room Air 06/11/24 16:49 Course Vital Signs Vital signs: Vital Signs Temperature 98.1 F 06/11/24 16:49 Pulse Rate 111 H 06/11/24 16:49 Respiratory Rate 18 06/11/24 16:49 Blood Pressure 147/103 H 06/11/24 16:49 Pulse Oximetry 97 06/11/24 16:49 Oxygen Delivery Method Room Air 06/11/24 16:49 Temperature 98.1 F 06/11/24 16:49 Pulse Rate 111 H 06/11/24 16:49 Respiratory Rate 18 06/11/24 16:49 Blood Pressure 147/103 H 06/11/24 16:49 Pulse Oximetry 97 06/11/24 16:49 Oxygen Delivery Method Room Air 06/11/24 16:49 MDM - Back Pain/Injury MDM Narrative Medical decision making narrative: 43-year-old male presents here with chief complaint bilateral lower extremity discomfort. She states she has had sciatic pain for the last 5 days. He was moving furniture and developed pain several days later. States he recently saw a primary care physician told him of this pain and he had a lumbar x-ray ordered as well as basic lab work. Patient denies any numbness ting or loss of bowel or bladder function. States he is just uncomfortable at night when he tries to sleep. He is here for pain medication and relief of his symptoms. He is scheduled for a gallbladder ultrasound this week as well. He has no fevers chills nausea or vomiting. Patient ambulated into the emergency room without any difficulty. No signs of quada equina. Patient present here chief complaint bilateral lower extremity pain consistent with lumbar strain or sciatic pain. Recent x-ray was reviewed that was performed on 06/09/2024. Showed no acute abnormalities. He is also getting worked up for rectal bleeding by his primary care physician that he has had for several years . He does have a history of hemorrhoids. He is scheduled to get a colonoscopy. He is also having a ultrasound performed on his abdomen later this week. CT scan of the abdomen was offered today but patient denies he does not want to wait for results he states. Patient was medicated here for his sciatic pain Toradol Norflex and discharged home with a small prescription of steroid. Reasons to return to the emergency room were discussed. Vital signs are stable blood pressure did improve here in the emergency room to 133/96. Discharge Plan Discharge Chief Complaint: Back Pain/Injury Clinical Impression: Strain of lumbar region, Sciatica Patient Disposition: Home, Self-Care Time of Disposition Decision: 17:33 Condition: Good Prescriptions / Home Meds: No Action buspirone 5 mg tablet trazodone 50 mg tablet escitalopram oxalate 20 mg tablet Print Language: Lithuanian Instructions: Sciatica (ED), Acute Low Back Pain (ED), P.R.I.C.E. Treatment (ED), Lower Back Exercises (ED) Referrals: ANGIE MONSALVE [Primary Care Provider] - 1 week
[2024-06-11 17:30] VITALS: BP 133/96
== END 2024-06-11 17:45 | disposition home or self-care (01) ==
PROVIDERS: Emergency Provider Emergency Medicine; PCP Nurse Practitioner Family
DX: S39.012A Strain of muscle, fascia and tendon of lower back, initial encounter (principal); X50.0XXA Overexertion from strenuous movement or load, initial encounter; M54.30 Sciatica, unspecified side
CPT/HCPCS: 96372; 99284; J1885; J2360

== ENCOUNTER 2024-06-13 10:42 | Outpatient (OUT) | payer OTHER, SELFPAY ==
--- OUTSIDE RECORDS SUMMARY | 2024-06-13 10:45 | XMS_ITS | CCD ---
Author Organization [facility] Care Team Providers Care Director Of Government Sales Name Role Phone Collins Cruz Unavailable Marilyn Rao Unavailable [facility] Primary Care Provider MD Meño Coelho Emergency Provider [phone] DO Mino Gallego Emergency Provider [facility] Primary Care Provider MD Meño Coelho Emergency Provider DO Mino Gallego Emergency Provider [phone] MD Marilyn Rao Attending Provider [phone] Marilyn Rao Admitting Unavailable Marilyn Rao Attending Unavailable [facility], [facility] Primary Care Unavailable Olexa, Collins Attending Unavailable Olexa, Collins Admitting Unavailable [facility] [place], [facility] Primary Care Unavailable Nancy, Collins Attending Unavailable Frankixa, Collins Admitting Unavailable [facility], [facility] Primary Care Unavailable [facility] [place], [facility] Primary Care Unavailable Marilyn Rao Attending Unavailable Marilyn Rao Admitting Unavailable [facility], [facility] Primary Care Unavailable Mino Gallego Attending Unavailable Mino Gallego Admitting [facility]available [facility] Primary Care Unavailable Meño Coelho Attending Unavailable Meño Coelho Admitting Unavailable Olexa, Collins Attending Unavailable Frankixa, Collins Admitting Unavailable [facility], [facility] Primary Care Unavailable Marilyn Rao Attending Unavailable Marilyn Rao Admitting Unavailable [facility], [facility] Primary Care Unavailable Hazel Amato Unavailable DR ALVINO BACK Admitting [facility]IR[facility] Primary Care Unavailable RAJIV Faulkner [...] Admitting Unavailable XAVIER ., COSMO Attending Unavailable MISC, DR VIRAMONTES [...] Drug Class(es) Dates Sig (Normalized) Sig (Original) [id number] 200 actuat albuterol 0.09 mg/actuat metered dose [...] extended release oral tablet (2 sources) Uncompetitive J-dnsqrd-B-aspa rtate Receptor Antagonist, Sigma-1 Agonist Start: 03-13-2022 take 1 tablet by mouth every twelve hours Mucinex DM 30-600 MG 1 tablet as needed Orally every 12 hrs Feb, Not-Taking docusate sodium 50 mg / sennosides, care home 8.6 mg oral tablet (6 sources) Start: [...] 10-04-2021 Episodic Other aftercare (1 source) Other group home (current) drug therapy; Translations: [OT [facility] CURRENT DRUG THERAPY] Onset: 01-30-2022 Episodic Other [...] (COVID-19) RNA SHA+probe Ql (Unsp spec) Negative [facility] Other COVID/FLU RT-PCR Positive [facility] Other COVID/FLU RT-PCR Negative [facility] Other Aerobic Cultureon 01-31-2022 Aerobic Culture Light Normal Skin Nayeli 2 Days No Anaerobes Isolated 3 Days Gram Stain Result No Bacteria Seen No White Blood Cells Seen PERFORMED BY: [place] [id number] PATHOLOGIST SENIOR UNDERWRITING ASSISTANT JENNY ALEMAN M.D. Normal [facility] Comment on above: Performed By: #### A ERC #### [place] [address] [place] CULTURE WOUNDon 01-28-2022 CULTURE WOUND Culture [...] S C Oxacillin 2 S C Normal [facility] Comment on above: Performed By: #### W OUNDCX ####[facility] [id number] [address]Dr. Miguel Devries CBC AUTO DIFFon 01-24-2022 BASO # 0.1 103/ul Normal 0.0-0.1 [facility] Comment on above: Performed By: #### C BC #### [facility] [address] [address] [address] Miguel Devries Basophils/100 WBC (Bld) 0.4 % Normal 0.2-2.0 [facility] Comment on above: Performed By: #### C BC #### [facility] [address] [address] [address] Miguel Devries EO # 0.4 103/ul Normal 0.0-0.7 [facility] Comment on above: Performed By: #### C BC #### [facility] [address] [address] [address] Miguel Devries Eosinophils/100 WBC (Bld) 2.8 % Normal 0.9-7.0 [facility] Comment on above: Performed By: #### C BC #### [facility] [address] [place] [address] Dr. Miguel Devries Erythrocyte distribution width (RBC) [Ratio] 12.3 % Normal 11.0-15.0 [facility] Comment on above: Performed By: #### C BC #### [facility] [address] [place] [address] Dr. Miguel Devries Hematocrit (Bld) [Volume fraction] 40.9 % Critically low 42.0-54.0 [facility] Comment on above: Performed By: #### C BC #### [facility] [address] [address] [address] Miguel Devries Hemoglobin (Bld) [Mass/Vol] 14.7 g/dL Normal 14.0-18.0 [facility] Comment on above: Performed By: #### C BC #### [facility] [address] [address] [address] Miguel Devries IG # 0.06 10e3/ul Critically high 0.00-0.03 [facility] Comment on above: Performed By: #### C BC #### [facility] [address] [address] [address] Miguel Devries IG % 0.4 % Normal 0.0-0.5 [facility] Comment on above: Performed By: #### C BC #### [facility] [address] [place] [address] Dr. Miguel Devries LYMPH # 2.6 103/ul Normal 1.2-3.8 [facility] Comment on above: Performed By: #### C BC #### [facility] [address] [place] [address] Dr. Miguel Devries Lymphocytes/100 WBC (Bld) 17.6 % Critically low 20.5-60.0 [facility] Comment on above: Performed By: #### C BC #### [facility] [address] [place] [address] Dr. Miguel Devries MANUAL DIFF REQ NO Normal [facility] Comment on above: Performed By: #### C BC #### [facility] [address] [place] [address] Dr. Miguel Devries MCH (RBC) [Entitic mass] 32.5 pg Normal 25.9-34.0 [facility] Comment on above: Performed By: #### C BC #### [facility] [address] [place] [address] Dr. Miguel Devries MCHC (RBC) [Mass/Vol] 35.9 g/dL Critically high 29.9-35.2 [facility] Comment on above: Performed By: #### C BC #### [facility] [address] [address] [address] Miguel Devries MCV (RBC) [Entitic vol] 90.5 fL Normal 80.0-94.0 [facility] Comment on above: Performed By: #### C BC #### [facility] [address] [address] [address] Miguel Devries MONO # 1.1 103/ul Critically high 0.3-0.8 [facility] Comment on above: Performed By: #### C BC #### [facility] [address] [place] [address] Dr. Miguel Devries Monocytes/100 WBC (Bld) 7.2 % Normal 1.7-12.0 [facility] Comment on above: Performed By: #### C BC #### [facility] [address] [place] [address] Dr. Miguel Devries NEUT # 10.6 103/ul Critically high 1.4-6.5 [facility] Comment on above: Performed By: #### C BC #### [facility] [address] [place] [address] Dr. Miguel Devries Neutrophils/100 WBC (Bld) 71.6 % Normal 43.0-75.0 [facility] Comment on above: Performed By: #### C BC #### [facility] [address] [place] [address] Dr. Miguel Devries Platelet mean volume (Bld) [Entitic vol] 9.7 fL Normal 9.5-13.5 [facility] Comment on above: Performed By: #### C BC #### [facility] [address] [place] [address] Dr. Miguel Devries PLT 266 103/ul Normal 150-450 [facility] Comment on above: Performed By: #### C BC #### [facility] [address] [place], [place] [id number] Dr. Miguel Devries RBC 4.52 106/ul Critically low 4.70-6.10 [facility] Comment on above: Performed By: #### C BC #### [facility] [address] [place] [address] Dr. Miguel Devries WBC 14.7 103/ul Critically high 4.0-11.0 [facility] Comment on above: Performed By: #### C BC #### [facility] [address] [address] [address] Miguel Devries CULTURE BLOODon 01-24-2022 Microscopic examination of blood, culture Culture Observations: NO GROWTH AT 5 DAYS. Normal [facility] Comment on above: Performed By: #### B LDCX2 ####[facility] [id number] [address]Dr. Miguel Devries Microscopic examination of blood, culture Culture Observations: NO GROWTH AT 5 DAYS. Normal [facility] Comment on above: Performed By: #### B LDCX1 ####[facility] [id number] [address]Dr. Miguel Devries PROF 14(COMP METB)on 022 Albumin [Mass/Vol] 3.4 g/dL Normal 3.4-5.0 [facility] Comment on above: Performed By: #### C MP #### [facility] [address] [place] [address] Dr. Miguel Devries Albumin/Globulin [Mass ratio] 1.1 {ratio} Normal [facility] Comment on above: Performed By: #### C MP #### [facility] [address] [place] [address] Dr. Miguel Devries ALP [Catalytic activity/Vol] 66 U/L Normal 46-116 [facility] Comment on above: Performed By: #### C MP #### [facility] [address] [place] [address] Dr. Miguel Devries ALT [Catalytic activity/Vol] 28 U/L Normal 16-63 [facility] Comment on above: Performed By: #### C MP #### [facility] [address] [place] [address] Dr. Miguel Devries Anion gap [Moles/Vol] 9.8 mmol/L Normal [facility] Comment on above: Performed By: #### C MP #### [facility] [address] [place] [address] Dr. Miguel Devries AST [Catalytic activity/Vol] 16 U/L Normal 15-37 [facility] Comment on above: Performed By: #### C MP #### [facility] [address] [address] [address] Miguel Devries Bilirubin [Mass/Vol] 0.2 mg/dL Normal 0.2-1.0 [facility] Comment on above: Performed By: #### C MP #### [facility] [address] [address] [address] Miguel Devries Calcium [Mass/Vol] 8.0 mg/dL Critically low 8.5-10.1 [facility] Comment on above: Performed By: #### C MP #### [facility] [address] [place] [address] Dr. Miguel Devries Chloride [Moles/Vol] 106 mmol/L Normal 98-107 [facility] Comment on above: Performed By: #### C MP #### [facility] [address] [place] [address] Dr. Miguel Devries CO2 [Moles/Vol] 27.6 mmol/L Normal 21.0-32.0 [facility] Comment on above: Performed By: #### C MP #### [facility] [address] [place] [address] Dr. Miguel Devries Creatinine [Mass/Vol] 0.79 mg/dL Normal 0.70-1.30 [facility] Comment on above: Performed By: #### C MP #### [facility] [address] [place] [address] Dr. Miguel Devries EGFR-AF PUERTO RICAN >60 Normal >=60 [facility] Comment on above: Performed By: #### C MP #### [facility] [address] [place] [address] Dr. Miguel Devries EGFR-NON AF PUERTO RICAN >60 Normal >=60 [facility] Comment on above: Performed By: #### C MP #### [facility] [address] [place] [address] Dr. Miguel Devries Globulin (S) [Mass/Vol] 3.0 g/dL Normal T he [facility] Comment on above: Performed By: #### C MP #### [facility] [address] [address] [address] Miguel Devries Glucose [Mass/Vol] 113 mg/dL Critically high 74-106 [facility] Comment on above: Performed By: #### C MP #### [facility] [address] [address] [address] Miguel Devries Potassium [Moles/Vol] 3.4 mmol/L Critically low 3.5-5.1 [facility] Comment on above: Performed By: #### C MP #### [facility] [address] [address] [address] Miguel Devries Protein [Mass/Vol] 6.4 g/dL Normal 6.4-8.2 [facility] Comment on above: Performed By: #### C MP #### [facility] [address] [address] [address] Miguel Devries Sodium [Moles/Vol] 140 mmol/L Normal 136-145 [facility] Comment on above: Performed By: #### C MP #### [facility] [address] [address] [address] Miguel Devries Urea nitrogen [Mass/Vol] 14.0 mg/dL Normal 7.0-18.0 [facility] Comment on above: Performed By: #### C MP #### [facility] [address] [address] [address] Miguel Devries Urea nitrogen/Creatinine [Mass ratio] 17.7 mg/mg Normal [facility] Comment on above: Performed By: #### C MP #### [facility] [address] [address] [address] Miguel Devries XR CSPINE 2_3 VIEWSon [...] by: DELANEY SYED Date: 2022-01-23 18:16 Normal [facility] ECG 12 lead ECGon 01-19-2022 ECG 12 lead ECG [facility] [place] [address] [place] [address] Electrocardiograph Report Signed Patient: Sukh Cisneros MR#: [id number] : 1980 Acct:[id number] Age/Sex: 41 / M ADM Date: 01/18/22 Loc: ER Room: Type: [facility] ER Attending Dr: Ordering Provider: Mino Gallego [...] longer present Confirmed by Mino Gallego DO ([id number]) on 01/19/2022 4:26:01 AM Referred By: Electronically Signed By:Mino Gallego DO Transcribed By: MUS Signed By Mino Gallego DO 01/19 0426 Normal [facility] CT CSPINE WO CONon 2 CT CSPINE [...] by: REINA FRANKLIN Date: 2022-01-18 11:02 Normal [facility] Basic Metabolic Panelon 10- Anion gap [Moles/Vol] 12.0 mmol/L Normal 6.0-15.0 [facility] Comment on above: Performed By: #### C BC, BMP #### [facility] [address] Calcium [Mass/Vol] 8.7 mg/dL Normal 8.2-10.2 [facility] Comment on above: Performed By: #### C BC, BMP #### [facility] [address] Chloride [Moles/Vol] 105 mmol/L Normal 95-114 [facility] Comment on above: Performed By: #### C BC, BMP #### [facility] [address] CO2 [Moles/Vol] 22.9 mmol/L Normal 22.0-30.0 [facility] Comment on above: Performed By: #### C BC, BMP #### [facility] [address] Creatinine [Mass/Vol] 0.73 mg/dL Normal 0.64-1.27 [facility] Comment on above: Performed By: #### C BC, BMP #### [facility] [address] [place] [address] [place] Creatinine Clr Calc Pharmacy 161.10 Normal [facility] Comment on above: Result Comment: PERF ORMED BY: [place] [address] PATHOLOGIST SENIOR UNDERWRITING ASSISTANT JENNY ALEMAN M.D. Performed By: #### C BC, BMP #### [place] [address] [place] Estimated GFR ( Sheela > 60 Normal [facility] Comment on above: Result Comment: GFR estimated reference range: According to KDOQI guidelines, <60 ml/min/1.73m2 is sufficient to diagnose a patient with chronic kidney disease. Performed By: #### C BC, BMP #### [address] Estimated GFR (Non- Am > 60 Normal [facility] Comment on above: Performed By: #### C BC, BMP #### [address] Glucose [Mass/Vol] 91 mg/dL Normal 70-100 [facility] Comment on above: Result Comment: [place] Glucose Reference Range is dependent on time and content of last meal. Glucose of more than 200 mg/dL in a nonstressed, ambulatory subject supports the diagnosis of Diabetes Mellitus. ADA recommended reference range Performed By: #### C BC, BMP #### [address] Potassium [Moles/Vol] 3.9 mmol/L Normal 3.5-5.1 [facility] Comment on above: Performed By: #### C BC, BMP #### [address] Sodium [Moles/Vol] 136 mmol/L Normal 136-146 [facility] Comment on above: Performed By: #### C BC, BMP #### [address] Urea nitrogen [Mass/Vol] 7 mg/dL Low 9-23 [facility] Comment on above: Performed By: #### C BC, BMP #### [place] [address] [place] Basophils Auto (Bld) [#/Vol] Ordered By: Meño Coelho on 01-13-2022 Basophils (Bld) [#/Vol] 0.1 10*3/uL 0.0-0.2 [facility] Basophils/100 WBC Auto (Bld) Ordered By: Meño Coelho on 01-13-2022 Basophils/100 WBC (Bld) 0.8 % . [facility] Complete Blood Count Auto Di ffon 01-13-2022 Basophils (Bld) [#/Vol] 0.1 10*3/uL Normal 0.0-0.2 [facility] Comment on above: Result Comment: PERF ORMED BY: [place] [address] PATHOLOGIST SENIOR UNDERWRITING ASSISTANT JENNY ALEMAN M.D. Performed By: #### C BC, BMP #### [address] Basophils/100 WBC (Bld) 0.8 % Normal . [facility] Comment on above: Performed By: #### C BC, BMP #### [address] Eosinophils (Bld) [#/Vol] 0.4 10*3/uL Normal 0.0-0.45 [facility] Comment on above: Performed By: #### C BC, BMP #### [address] Eosinophils/100 WBC (Bld) 6.2 % Normal . [facility] Comment on above: Performed By: #### C BC, BMP #### [address] Erythrocyte distribution width (RBC) [Ratio] 12.7 % Normal 12.0-14.8 [facility] Comment on above: Performed By: #### C BC, BMP #### [address] Hematocrit (Bld) [Volume fraction] 44.2 % Normal 38.8-50.0 [facility] Comment on above: Performed By: #### C BC, BMP #### [address] Hemoglobin (Bld) [Mass/Vol] 15.1 g/dL Normal 13.0-17.0 [facility] Comment on above: Performed By: #### C BC, BMP #### [address] Lymphocytes (Bld) [#/Vol] 2.6 10*3/uL Normal 1.00-4.8 [facility] Comment on above: Performed By: #### C BC, BMP #### [address] Lymphocytes/100 WBC (Bld) 38.5 % Normal . [facility] Comment on above: Performed By: #### C BC, BMP #### [address] MCH (RBC) [Entitic mass] 32.1 pg Normal 27.5-35.2 [facility] Comment on above: Performed By: #### C BC, BMP #### [address] MCV (RBC) [Entitic vol] 94.1 fL Normal 83.5-101 [facility] Comment on above: Performed By: #### C BC, BMP #### [address] Mean Corpuscular HGB Conc 34.2 g/dL Normal 32.5-35.6 [facility] Comment on above: Performed By: #### C BC, BMP #### [address] Monocytes (Bld) [#/Vol] 0.5 10*3/uL Normal 0.0-0.8 [facility] Comment on above: Performed By: #### C BC, BMP #### [address] Monocytes/100 WBC (Bld) 7.1 % Normal . [facility] Comment on above: Performed By: #### C BC, BMP #### [address] Neutrophils (Bld) [#/Vol] 3.2 10*3/uL Normal 1.8-7.7 [facility] Comment on above: Performed By: #### C BC, BMP #### [place] [address] [place] Neutrophils/100 WBC (Bld) 47.4 % Normal . [facility] Comment on above: Performed By: #### C ROB, BMP #### [address] Nucleated RBC/100 WBC (Bld) [Ratio] 0.1 % Normal 0-0.5 [facility] Comment on above: Performed By: #### C ROB, BMP #### [address] Platelet mean volume (Bld) [Entitic vol] 8.9 fL Normal 6.6-10.1 [facility] Comment on above: Performed By: #### C ROB, BMP #### [address] Platelets (Bld) [#/Vol] 209 10*3/uL Normal 150-450 [facility] Comment on above: Performed By: #### C ROB, BMP #### [address] RBC (Bld) [#/Vol] 4.70 10*6/uL Normal 3.90-5.60 [facility] Comment on above: Performed By: #### C ROB, BMP #### [address] WBC (Bld) [#/Vol] 6.8 10*3/uL Normal 4.5-11.0 [facility] Comment on above: Performed By: #### C ROB, BMP #### [address] Creatinine and Glomerular fi ltration rate.predicted panel (S/P/Bld)Ordered By: Meño Coelho on 01-13-2022 Creatinine [Mass/Vol] 0.73 mg/dL 0.64-1.27 [facility] Eosinophils Auto (Bld) [#/Vo l]Ordered By: Meño Coelho on 01-13-2022 Eosinophils (Bld) [#/Vol] 0.4 10*3/uL 0.0-0.45 [facility] Eosinophils/100 WBC Auto (Bl d)Ordered By: Meño Coelho on 01-13-2022 Eosinophils/100 WBC (Bld) 6.2 % . [facility] Erythrocyte distribution wid th Auto (RBC) [Ratio]Ordered By: Meño Coelho on 01-13-2022 Erythrocyte distribution width (RBC) [Ratio] 12.7 % 12.0-14.8 [facility] Estimated glomerular filtrat ion rate (GFR) non- AmericanOrdered By: Meño Coelho on 01-13-2022 GFR/1.73 sq M.predicted among non-blacks MDRD (S/P/Bld) [Vol rate/Area] > 60 mL/Min [facility] Hematocrit Auto (Bld) [Volum e fraction]Ordered By: Meño Coelho on 01-13-2022 Hematocrit (Bld) [Volume fraction] 44.2 % 38.8-50.0 [facility] Hemoglobin [Mass/volume] in BloodOrdered By: Meño Coelho on 01-13-2022 Hemoglobin (Bld) [Mass/Vol] 15.1 g/dL 13.0-17.0 [facility] - Hematology and Cell countsOrdered By: Meño Coelho on 01-13-2022 Nucleated RBC/100 WBC (Bld) [Ratio] 0.1 % 0-0.5 [facility] Leukocytes [#/volume] in Blo od by Automated countOrdered By: Meño Coelho on 01-13-2022 WBC (Bld) [#/Vol] 6.8 10*3/uL 4.5-11.0 [facility] Lymphocytes Auto (Bld) [#/Vo l]Ordered By: Meño Coelho on 01-13-2022 Lymphocytes (Bld) [#/Vol] 2.6 10*3/uL 1.00-4.8 [facility] Lymphocytes/100 WBC Auto (Bl d)Ordered By: Meño Coelho on 01-13-2022 Lymphocytes/100 WBC (Bld) 38.5 % . [facility] MCH Auto (RBC) [Entitic mass ]Ordered By: Meño Coelho on 01-13-2022 MCH (RBC) [Entitic mass] 32.1 pg 27.5-35.2 [facility] MCHC Auto (RBC) [Mass/Vol]Or dered By: Meño Coelho on 01-13-2022 MCHC (RBC) [Mass/Vol] 34.2 g/dL 32.5-35.6 [facility] MCV Auto (RBC) [Entitic vol] Ordered By: Meño Coelho on 01-13-2022 MCV (RBC) [Entitic vol] 94.1 fL 83.5-101 [facility] Monocytes Auto (Bld) [#/Vol] Ordered By: Meño Coelho on 01-13-2022 Monocytes (Bld) [#/Vol] 0.5 10*3/uL 0.0-0.8 [facility] Monocytes/100 WBC Auto (Bld) Ordered By: Meño Coelho on 01-13-2022 Monocytes/100 WBC (Bld) 7.1 % . [facility] Neutrophils Auto (Bld) [#/Vo l]Ordered By: Meño Coelho on 01-13-2022 Neutrophils (Bld) [#/Vol] 3.2 10*3/uL 1.8-7.7 [facility] Neutrophils/100 WBC Auto (Bl d)Ordered By: Meño Coelho on 01-13-2022 Neutrophils/100 WBC (Bld) 47.4 % . [facility] No Panel InformationOrdered By: Meño Coelho on 01-13-2022 Estimated GFR () > 60 mL/Min [facility] Comment on above: GFR estimated refere nce range: According to KDOQI guidelines, <60 ml/min/1.73m2 is sufficient to diagnose a patient with chronic kidney disease. Pharmacy Creatinine Clearance (Chem 161.10 [facility] Platelet mean volume Auto (B ld) [Entitic vol]Ordered By: Meño Coelho on 01-13-2022 Platelet mean volume (Bld) [Entitic vol] 8.9 fL 6.6-10.1 [facility] Platelets Auto (Bld) [#/Vol] Ordered By: Meño Coelho on 01-13-2022 Platelets (Bld) [#/Vol] 209 10*3/uL 150-450 [facility] RBC Auto (Bld) [#/Vol]Ordere d By: Meño Coelho on 01-13-2022 RBC (Bld) [#/Vol] 4.70 10*6/uL 3.90-5.60 [facility] Serum or plasma anion gap de terminationOrdered By: Meño Coelho on 01-13-2022 Anion gap [Moles/Vol] 12.0 mmol/L 6.0-15.0 [facility] Serum or plasma calcium roseline urement (mass/volume)Ordered By: Meño Coelho on 01-13-2022 Calcium [Mass/Vol] 8.7 mg/dL 8.2-10.2 [facility] Serum or plasma chloride mary jo surement (moles/volume)Ordered By: Meño Coelho on 01-13-2022 Chloride [Moles/Vol] 105 mmol/L 95-114 [facility] Serum or plasma glucose roseline urement (mass/volume)Ordered By: Meño Coelho on 01-13-2022 Glucose [Mass/Vol] 91 mg/dL 70-100 [facility] Comment on above: ADA recommended refe rence rangeRandom Glucose Reference Range is dependent on time and content of last meal. Glucose of more than 200 mg/dL in a nonstressed, ambulatory subject supports the diagnosis of Diabetes Mellitus. Serum or plasma potassium me asurement (moles/volume)Ordered By: Meño Coelho on 01-13-2022 Potassium [Moles/Vol] 3.9 mmol/L 3.5-5.1 [facility] Serum or plasma sodium measu rement (moles/volume)Ordered By: Meño Coelho on 01-13-2022 Sodium [Moles/Vol] 136 mmol/L 136-146 [facility] Serum or plasma total carbon dioxide measurement (moles/volume)Ordered By: Meño Coelho on 01-13-2022 CO2 [Moles/Vol] 22.9 mmol/L 22.0-30.0 [facility] Serum or plasma urea nitroge n measurement (mass/volume)Ordered By: Meño Coelho on 01-13-2022 Urea nitrogen [Mass/Vol] 7 mg/dL 12-20 [facility] CBC AUTO DIFFon 01-11-2022 BASO # 0.0 103/ul Normal 0.0-0.1 [facility] Comment on above: Performed By: #### C BC #### [facility] [address] [place] [address] Dr. Miguel Devries Basophils/100 WBC (Bld) 0.4 % Normal 0.2-2.0 [facility] Comment on above: Performed By: #### C BC #### [facility] [address] [place] [address] Dr. Miguel Devries EO # 0.5 103/ul Normal 0.0-0.7 [facility] Comment on above: Performed By: #### C BC #### [facility] [address] [place] [address] Dr. Miguel Devries Eosinophils/100 WBC (Bld) 5.0 % Normal 0.9-7.0 [facility] Comment on above: Performed By: #### C BC #### [facility] [address] [place] [address] Dr. Miguel Devries Erythrocyte distribution width (RBC) [Ratio] 11.9 % Normal 11.0-15.0 [facility] Comment on above: Performed By: #### C BC #### [facility] [address] [place] [address] Dr. Miguel Devries Hematocrit (Bld) [Volume fraction] 44.8 % Normal 42.0-54.0 [facility] Comment on above: Performed By: #### C BC #### [facility] [address] [place] [address] Dr. Miguel Devries Hemoglobin (Bld) [Mass/Vol] 15.7 g/dL Normal 14.0-18.0 [facility] Comment on above: Performed By: #### C BC #### [facility] [address] [place] [address] Dr. Miguel Devires IG # 0.03 10e3/ul Normal 0.00-0.03 [facility] Comment on above: Performed By: #### C BC #### [facility] [address] [place] [address] Dr. Miguel Devries IG % 0.3 % Normal 0.0-0.5 [facility] Comment on above: Performed By: #### C BC #### [facility] [address] [place] [address] Dr. Miguel Devries LYMPH # 2.5 103/ul Normal 1.2-3.8 [facility] Comment on above: Performed By: #### C BC #### [facility] [address] [place] [address] Dr. Miguel Devries Lymphocytes/100 WBC (Bld) 25.6 % Normal 20.5-60.0 [facility] Comment on above: Performed By: #### C BC #### [facility] [address] [place] [address] Dr. Miguel Devries MANUAL DIFF REQ NO Normal [facility] [place] [facility] Comment on above: Performed By: #### C BC #### [facility] [address] [place] [address] Dr. Miguel Devries MCH (RBC) [Entitic mass] 32.2 pg Normal 25.9-34.0 [facility] Comment on above: Performed By: #### C BC #### [facility] [address] [place] [address] Dr. Miguel Devries MCHC (RBC) [Mass/Vol] 35.0 g/dL Normal 29.9-35.2 [facility] Comment on above: Performed By: #### C BC #### [facility] [address] [place] [address] Dr. Miguel Devries MCV (RBC) [Entitic vol] 92.0 fL Normal 80.0-94.0 [facility] Comment on above: Performed By: #### C BC #### [facility] [address] [place] [address] Dr. Miguel Devries MONO # 0.7 103/ul Normal 0.3-0.8 [facility] Comment on above: Performed By: #### C BC #### [facility] [address] [place] [address] Dr. Miguel Devries Monocytes/100 WBC (Bld) 7.2 % Normal 1.7-12.0 [facility] Comment on above: Performed By: #### C BC #### [facility] [address] [place] [address] Dr. Miguel Devries NEUT # 5.9 103/ul Normal 1.4-6.5 [facility] Comment on above: Performed By: #### C BC #### [facility] [address] [place] [address] Dr. Miguel Devries Neutrophils/100 WBC (Bld) 61.5 % Normal 43.0-75.0 [facility] Comment on above: Performed By: #### C BC #### [facility] [address] [place] [address] Dr. Miguel Devries Platelet mean volume (Bld) [Entitic vol] 10.0 fL Normal 9.5-13.5 [facility] Comment on above: Performed By: #### C BC #### [facility] [address] [place] [address] Dr. Miguel Devries PLT 252 103/ul Normal 150-450 [facility] Comment on above: Performed By: #### C BC #### [facility] [address] [place] [address] Dr. Miguel Devries RBC 4.87 106/ul Normal 4.70-6.10 [facility] Comment on above: Performed By: #### C BC #### [facility] [address] [place] [address] Dr. Miguel Devries WBC 9.6 103/ul Normal 4.0-11.0 [facility] Comment on above: Performed By: #### C BC #### [facility] [address] [place] [address] Dr. Miguel Devries CRPon 01-11-2022 CRP [Mass/Vol] mg/L Normal <=1.0 The [facility] Comment on above: Performed By: #### C RP, BMP #### [facility] [address] [place] [address] HAND LT WO [...] by: ARMAND JUARES Date: 2022-01-11 18:50 Normal [facility] CULTURE BLOODon 01-11-2022 Microscopic examination of blood, culture Culture Observations: No growth at 5 days. Normal [facility] Comment on above: Performed By: #### B LDCX2 #### [facility] [address] [address] [address] Miguel Devries Microscopic examination of blood, culture Culture Observations: No growth at 5 days. Normal [facility] Comment on above: Performed By: #### B LDCX1 #### [facility] [address] [place], [place] [address] Dr. Miguel Devries LACTATE/LACTIC ACIDon 2021 Lactate [Moles/Vol] 1.0 mmol/L Normal 0.4-1.9 [facility] Comment on above: Performed By: #### L ACT ####[facility] [id number] [address]Dr. Miguel Devries PROF CHEM 8 (BAS METB)on Anion gap [Moles/Vol] 10.3 mmol/L Normal [facility] Comment on above: Performed By: #### C RP, BMP #### [facility] [address] [address] [address] Miguel Devries Calcium [Mass/Vol] 9.1 mg/dL Normal 8.5-10.1 [facility] Comment on above: Performed By: #### C RP, BMP #### [facility] [address] [place] [address] Dr. Miguel Devries Chloride [Moles/Vol] 104 mmol/L Normal 98-107 [facility] Comment on above: Performed By: #### C RP, BMP #### [facility] [address] [place] [address] Dr. Miguel Devries CO2 [Moles/Vol] 26.5 mmol/L Normal 21.0-32.0 [facility] Comment on above: Performed By: #### C RP, BMP #### [facility] [address] [place] [address] Dr. Miguel Devries Creatinine [Mass/Vol] 0.81 mg/dL Normal 0.70-1.30 [facility] Comment on above: Performed By: #### C RP, BMP #### [facility] [address] [address] [address] Miguel Devries EGFR-AF PUERTO RICAN >60 Normal >=60 [facility] Comment on above: Performed By: #### C RP, BMP #### [facility] [address] [address] [address] Miguel Devries EGFR-NON AF PUERTO RICAN >60 Normal >=60 [facility] Comment on above: Performed By: #### C RP, BMP #### [facility] [address] [address] [address] Miguel Devries Glucose [Mass/Vol] 96 mg/dL Normal 74-106 [facility] Comment on above: Performed By: #### C RP, BMP #### [facility] [address] [address] [address] Miguel Devries Potassium [Moles/Vol] 3.8 mmol/L Normal 3.5-5.1 [facility] Comment on above: Performed By: #### C RP, BMP #### [facility] [address] [address] [address] Miguel Devries Sodium [Moles/Vol] 137 mmol/L Normal 136-145 [facility] Comment on above: Performed By: #### C RP, BMP #### [facility] [address] [address] [address] Miguel Devries Urea nitrogen [Mass/Vol] 10.0 mg/dL Normal 7.0-18.0 [facility] Comment on above: Performed By: #### C RP, BMP #### [facility] [address] [place] [address] Dr. Miguel Devries Urea nitrogen/Creatinine [Mass ratio] 12.3 mg/mg Normal [facility] Comment on above: Performed By: #### C RP, BMP #### [facility] [address] [place] [address] Dr. Miguel Devries SED RATE [facility] 2021 SED RATE 13 mm/hr Normal <=15 [facility] Comment on above: Performed By: #### S EDR #### [facility] [address] [place] [address] Dr. Miguel Devries Drug Screen,Urineon 09-20-19 22 Amphetamine Screen,Urine Positive High Negative [facility] Comment on above: Performed By: #### U RDS #### [facility] [address] [place] [address] [place] Barbiturate Screen,Urine Negative Normal Negative [facility] Comment on above: Performed By: #### U RDS #### [facility] [address] [place] [address] [place] Benzodiazepines Screen,Urine Negative Normal Negative [facility] Comment on above: Performed By: #### U RDS #### [address] Cannabinoid Screen,Urine Positive High Negative [facility] Comment on above: Result Comment: Thes e are unconfirmed results and should not be used for legal purposes. Drug Cut-Off Concentration: AMPH 1000 ng/mL SHERRIE 200 ng/mL MONICA 200 ng/mL COCM 300 ng/mL OP 300 ng/mL PCP 25 ng/mL THC 20 ng/mL PERFORMED BY: [place] [address] PATHOLOGIST SENIOR UNDERWRITING ASSISTANT JENNY ALEMAN M.D. Performed By: #### U RDS #### [address] Cocaine Screen,Urine Negative Normal Negative [facility] Comment on above: Performed By: #### U RDS #### [address] Opiate Screen,Urine Negative Normal Negative [facility] Comment on above: Performed By: #### U RDS #### [address] Phencyclidine Screen,Urine Negative Normal Negative [facility] Comment on above: Performed By: #### U RDS #### [address] Marcos 09-19-2021 L -- Specimen: [id number] Received: 09/19/21 Status: JHON Norman Num: [id number] Spec Type: Surgical Subm Dr: Marilyn Rao MD Tissues: A Skin-Other than Cyst, tag, debridement or plastic repair (LT INDEX FINGER) Procedures: HE Stain, Gross/Micro L3 -- Patient Age/Sex Location Account Attending Physician -- Sukh Cisneros/M [place] [id number] Marilyn Rao MD -- SPEC NUM: [id number] RECD: 09/19/21 STATUS: JHON NORMAN NUM: [id number] EKATERINA: 09/19/21- [facility] DR: Marilyn Rao MD ENTERED: 09/19/21 [facility] DR: SUSANA TYPE: Surgical DEPT: S [...] slide with H and E stain material [place]. The microscopic findings support the above diagnosis. CPT Codes 66796 -- -- Specimen: [id number] Received: 09/19/21 Status: JHON Turnermikel Num: [id number] Spec Type: Surgical Subm Dr: Marilyn Rao MD Tissues: A Skin-Other than Cyst, tag, debridement or plastic repair (LT INDEX FINGER) Procedures: HE Stain, Gross/Micro L3 -- Patient: Sukh Cisneros [id number] (Continued) -- Signed (signatu re on file) Lilli Sheehan MD 09/23/21 1859 [facility] COVID-19 FRon 09-17-2021 SARS-CoV-2 (COVID-19) RNA SHA+probe Ql (Unsp spec) Negative Normal Negative [facility] Comment on above: Order Comment: Healt hcare Worker?: N Result Comment: Testing for SARS-CoV-2 by RT-PCR This test was developed and its performance characteristics determined by [employer]) and validated at the [facility]. This test has not been FDA cleared [...] is terminated or revoked sooner. PERFORMED BY: [place] [address] PATHOLOGIST SENIOR UNDERWRITING ASSISTANT JENNY ALEMAN M.D. Performed By: #### C OVID 19 [facility] #### [address] XR hand LT min 3V*on 022 XR hand LT min 3V* [facility] [place] [address] [place] [address] XRay Report Signed Patient: Sukh Cisneros MR#: [id number] : 1980 Acct:[id number] Age/Sex: 41 / M ADM Date: 07/29/21 Loc: [facility] [place] [place] Room: Type: [facility] Attending Dr: Collins Cruz MD Ordering Provider: [...] 1:14 PM Dictation Location: RADIO-PC-11 Transcribed By: [facility] 07/29/21 131 Dictated By: Calli Dixon MD 07/29/21 131 Signed By: 07/29/21 131 Normal [facility] COVID[facility] SARS-CoV-2 (COVID-19) RNA SHA+probe Ql (Unsp spec) Negative Normal Negative [facility] Comment on above: Order Comment: Healt hcare Worker?: N Result Comment: Testing for SARS-CoV-2 by RT-PCR This test was developed and its performance characteristics determined by [employer]) and validated at the [facility]. This test has not been FDA cleared [...] is terminated or revoked sooner. PERFORMED BY: [facility] [address] [place] [address] PATHOLOGIST SENIOR UNDERWRITING ASSISTANT JENNY ALEMAN M.D. Performed By: #### C OVID 19 [facility] #### [facility] [address] [id number] [facility] Consenton 11-01-2019 Consent [id number] #1.00CD:127 [facility] Registrationon 11-01-2019 Registration [id number] #[id number]:127 [facility] Vital Signs Date Time Vital Sign Value Performing Clinician Facility 06-09-2024 09:40-0400 Body height 177.8 cm [facility] 06-09-2024 09:40-0400 Body mass index (BMI) [Ratio] 32.8 kg/m2 [facility] 06-09-2024 09:40-0400 Body temperature 97.8 [degF] [facility] 06-09-2024 09:40-0400 Body weight 103.87 kg [facility] 06-09-2024 09:40-0400 Diastolic blood pressure 90 mm[Hg] [facility] 06-09-2024 09:40-0400 Heart rate 94 /min [facility] 06-09-2024 09:40-0400 SaO2% (BldA) [Mass fraction] 96 % [facility] 06-09-2024 09:40-0400 Systolic blood pressure 128 mm[Hg] [facility] 12-31-2023 10:37-0400 Body height 177.8 cm [facility] 12-31-2023 10:37-0400 Body mass index (BMI) [Ratio] 32 kg/m2 [facility] 12-31-2023 10:37-0400 Body temperature 96.7 [degF] [facility] 12-31-2023 10:37-0400 Body weight 101.15 kg [facility] 12-31-2023 10:37-0400 Diastolic blood pressure 90 mm[Hg] [facility] 12-31-2023 10:37-0400 SaO2% (BldA) [Mass fraction] 98 % [facility] 12-31-2023 10:37-0400 Systolic blood pressure 138 mm[Hg] [facility] 11-19-2023 14:00-0400 Body height 177.8 cm [facility] 11-19-2023 14:00-0400 Body mass index (BMI) [Ratio] 31.8 kg/m2 [facility] 11-19-2023 14:00-0400 Body weight 100.69 kg [facility] 11-19-2023 14:00-0400 Diastolic blood pressure 88 mm[Hg] [facility] 11-19-2023 14:00-0400 Heart rate 97 /min [facility] 11-19-2023 14:00-0400 SaO2% (BldA) [Mass fraction] 97 % [facility] 11-19-2023 14:00-0400 Systolic blood pressure 138 mm[Hg] [facility] 12-16-2022 14:10-0400 Body height 177.8 cm Kylee Lizarraga Other [facility] Other 12-16-2022 14:10-0400 Body mass index (BMI) [Ratio] 33.4 kg/m2 Kylee Lizarraga Other [facility] Other 12-16-2022 14:10-0400 Body temperature 98.1 [degF] Kylee Lizarraga Other [facility] Other 12-16-2022 14:10-0400 Body weight 105.6 kg Kylee Lizarraga Other [facility] Other 12-16-2022 14:10-0400 Diastolic blood pressure 98 mm[Hg] Kylee Lizarraga Other [facility] Other 12-16-2022 14:10-0400 Respiratory rate 18 /min Kylee Lizarraga Other [facility] Other 09-19-2023 14:10-0400 SaO2% (BldA) [Mass fraction] 97 % Kylee Lizarraga Other [facility] Other 12-16-2022 14:10-0400 Systolic blood pressure 149 mm[Hg] Kylee Lizarraga Other [facility] Other 03-13-2022 18:45-0500 Body height 177.8 cm Hazel Garault Other [facility] Other 03-13-2022 18:45-0500 Body mass index (BMI) [Ratio] 32.71 kg/m2 Hazel Garault Other [facility] Other 03-13-2022 18:45-0500 Body temperature 97.1 [degF] Hazel Lm Other [facility] Other 03-13-2022 18:45-0500 Body weight 103.42 kg Hazel Garault Other [facility] Other 03-13-2022 18:45-0500 Diastolic blood pressure 104 mm[Hg] Hazel Garault Other [facility] Other 03-13-2022 18:45-0500 Respiratory rate 18 /min Hazel Garault Other [facility] Other 03-13-2022 18:45-0500 SaO2% (BldA) [Mass fraction] 98 % Hazel Lm Other [facility] Other 03-13-2022 18:45-0500 Systolic blood pressure 155 mm[Hg] Hazel Lm Other [facility] Other 01-19-2022 05:00-0400 Diastolic blood pressure 98 mm[Hg] [facility] Work Phone: [facility] 01-19-2022 05:00-0400 Heart rate 90 /min [facility] Work Phone: [facility] 01-19-2022 05:00-0400 Respiratory rate 18 /min [facility] Work Phone: [facility] 01-19-2022 05:00-0400 SaO2% (BldA) [Mass fraction] 99 % [facility] Work Phone: [facility] 01-19-2022 05:00-0400 Systolic blood pressure 164 mm[Hg] [facility] Work Phone: [facility] 01-18-2022 22:45-0400 Body height 177.8 cm [facility] Work Phone: [facility] 01-18-2022 22:45-0400 Body weight 95.25 kg [facility] Work Phone: [facility] 01-18-2022 22:44-0400 Body temperature 98.5 [degF] [facility] Work Phone: [facility] 01-12-2022 22:28-0400 Body temperature 97.9 [degF] [facility] Work Phone: [facility] 01-12-2022 22:28-0400 Diastolic blood pressure 97 mm[Hg] [facility] Work Phone: [facility] 01-12-2022 22:28-0400 Heart rate 89 /min [facility] Work Phone: [facility] 01-12-2022 22:28-0400 Respiratory rate 20 /min [facility] Work Phone: [facility] 01-12-2022 22:28-0400 SaO2% (BldA) [Mass fraction] 98 % [facility] Work Phone: [facility] 01-12-2022 22:28-0400 Systolic blood pressure 154 mm[Hg] [facility] Work [facility]: [facility] 01-12-2022 22:24-0400 Body height 177.8 cm [facility] Work Phone: [facility] 01-12-2022 22:24-0400 Body weight 104.32 kg [facility] Work Phone: [facility] 09-03-2021 10:00-0400 Body height 177.8 cm Marilyn Caseandrew Other [facility] Other 09-03-2021 10:00-0400 Body mass index (BMI) [Ratio] 35.01 kg/m2 Marilynmicheal Rao Other [facility] Other 09-03-2021 10:00-0400 Body weight 110.68 kg Marilynmicheal Rao Other [facility] Other 07-29-2021 12:15-0400 Body height 177.8 cm Collins Olexa Other [facility] Other 07-29-2021 12:15-0400 Body mass index (BMI) [Ratio] 35.01 kg/m2 Collins Olexa Other [facility] Other 07-29-2021 12:15-0400 Body weight 110.68 kg Collins Olexa Other [facility] Other 07-09-2021 11:15-0400 Body height 177.8 cm Collins Olexa Other [facility] Other 07-09-2021 11:15-0400 Body mass index (BMI) [Ratio] 35.01 kg/m2 Collins Cruz Other [facility] Other 07-09-2021 11:15-0400 Body weight 110.68 kg Collins Cruz Other [facility] Other Encounters Encounter Date Encounter Type Care Provider Facility Start: 06-09-2024 End: 06-09-2024 ambulatory [facility] Work Phone: Start: 06-09-2024 End: 06-09-2024 Patient encounter procedure [facility] Work Phone: Start: 12-31-2023 End: 12-31-2023 ambulatory [facility] Work Phone: Start: 12-31-2023 End: 12-31-2023 Patient encounter procedure [facility] Work Phone: Start: 11-19-2023 Patient encounter status [facility] Start: 11-19-2023 End: 11-19-2023 ambulatory [facility] Work Phone: Start: 11-19-2023 End: 11-19-2023 Encounter for general adult medical examination without abnormal findings [facility] Start: 11-19-2023 End: 11-19-2023 [facility] Start: 12-16-2022 End: 12-16-2022 ambulatory Kylee Lizarraga Other [facility] Other Start: 12-16-2022 Office outpatient vi sit 15 minutes Kylee Lizarraga [facility] [place] Start: 08-27-2022 End: 08-27-[address] DELANEY SYED Facility:[facility] Start: 03-13-2022 End: 03-13-2022 ambulatory Hazel Amato Other [facility] Other Start: 03-13-2022 Office outpatient vi sit 15 minutes Hazel Amato [facility] Start: 02-12-2022 End: 02-12-2022 ambulatory Marilyn Rao Other [facility] Other Start: 02-12-2022 Office outpatient vi sit 15 minutes Marilyn Jalen [facility] Start: 01-31-2022 Patient encounter procedure Marilyn Calvey [facility] Start: 01-31-2022 End: 01-31-2022 ambulatory [facility] Work Phone: [facility] Work Phone: Start: 01-31-2022 End: 01-31-2022 Departed Referred [facility] Work Phone: [facility] [place] Start: 01-29-2022 End: 01-29-[address] ALVINO VANCE . Facility:[facility] Start: 01-24-2022 End: 01-24-[address] MADELEINE COELHO Facility:[facility] Start: 01-23-2022 End: 01-24-[address] DOCTOR HERRMANN Facility:[facility] Start: 01-19-2022 End: 01-19-2022 Emergency department patient visit [facility] Dept Facility:[facility] Start: 01-18-2022 End: 01-19-2022 Emergency department patient visit [facility] Work Phone: [facility] Start: 01-18-2022 End: 01-18-[address] EL SOLIS Facility:[facility] Start: 01-17-2022 End: 01-17-[address] DOCTOR HERRMANN Facility:[facility] Start: 01-14-2022 End: 01-14-2022 ambulatory Marilyn Rao Other [facility] Other Start: 01-14-2022 Office outpatient vi sit 15 minutes Marilyn Calvey [facility] Start: 01-13-2022 End: 01-13-2022 [facility] Start: 01-12-2022 End: 01-13-2022 Emergency department patient visit [facility] Work Phone: [facility] Start: 01-11-2022 End: 01-11-[address] VIRAMONTES [facility] Facility: Start: 10-04-2021 End: 10-04-2021 ambulatory Marilyn Willoughbyey Other [facility] Other Start: 10-04-2021 Postop follow up vis it related to original px Marilyn Calvey [facility] Start: 09-19-2021 End: 09-19-2021 [facility] Start: 09-17-2021 End: 09-17-2021 ambulatory Marilyn R Caseey Facility:[facility] Start: 09-03-2021 End: 09-03-2021 ambulatory Marilyn Calvey Other [facility] Other Start: 09-03-2021 Office outpatient ne w 45 minutes Marilyn Calvey [facility] Start: 07-29-2021 Office outpatient vi sit 15 minutes Collins Olexa [facility] [facility] Start: 07-29-2021 End: 07-29-2021 ambulatory Collins Olexa [facility] Other Start: 07-09-2021 End: 07-09-2021 ambulatory Collins Olexa Other [facility] Other Start: 07-09-2021 Postop follow up vis it related to original px Collins Olexa [facility] Start: 07-01-2021 End: 07-01-2021 ambulatory Collins Olexa Other [facility] Other Start: 07-01-2021 Telephone encounter Collins Cruz [facility] Start: 06-26-2021 End: 06-26-2021 ambulatory Collins Olexa Facility:[facility] Start: 06-25-2021 End: 06-25-2021 ambulatory Collins Olexa Other [facility] Other Start: 06-25-2021 Telephone encounter Collins Doanxa [facility] Start: 06-24-2021 End: 06-24-2021 ambulatory Collins Olexa Facility:[facility] Plan of Treatment Date Care Activity Detail Author Start: 06-09-2024 Patient referral [facility] Work Phone: Start: 01-31-2022 [facility] Aerobic Culture Aerobic Culture [facility] Anaerobic Culture Anaerobic Culture [facility] Comprehensive metabo lic 1999 panel - Serum or Plasma [facility] Comprehensive metabo lic 1999 panel - Serum or Plasma [facility] Microscopic observat ion [Identifier] in Unspecified specimen by Gram stain Gram Stain [facility] Patient Education [facility] Work Phone: Patient referral [facility] Work Phone: [facility] XR Lumbar spine Views [facility] Payers Date Payer Category Payer Self-pay [id number] 1980 Unknown [id number] 2.16.84 [id number] 1980 Unknown [id number] .16.84 0.1.261043.3.579.2.593 1980 Unknown [id number] .16.84 0.1.693849.3.579.2.593 1980 Unknown [id number] .16.84 0.1.244206.3.579.2.593 1980 Unknown [id number] 2.16.84 0.1.863754.3.579.2.593 1980 Unknown [id number] 2.16.84 0.1.119397.3.579.2.593 1980 Unknown [id number] 2.16.84 0.1.809207.3.579.2.593 1959 Medicaid [id number] 1959 Unknown [id number] 2.1 [id number] Medicaid [id number] Unknown [id number] 2.16.8 40.1.475282.3.579.2.531 Unknown [id number] 2.16.8 40.1.888700.3.579.2.531 Unknown [id number] 2.16.8 40.1.272421.3.579.2.531 Unknown [id number] 2.16.8 40.1.692548.3.579.2.531 Unknown [id number] 2.16.8 40.1.217349.3.579.2.531 Unknown [id number] 2.16.8 40.1.518324.3.579.2.531 Unknown [id number] 2.16.8 40.1.944616.3.579.2.531 Unknown [id number] 2.16.8 40.1.557191.3.579.2.531 Social History Date Type Detail Facility Unknown if ever smoked [facility] Other Sex Assigned At Sex Assigned At Bir th [facility] Other Start: 01-13-2022 Tobacco smoking status MIIS Smoker (finding) [facility] Start: 1980 Sex Assigned At Male [facility] Start: 01-19-2022 End: 01-19-2022 Tobacco smoking status NHIS Never smoked tobacco (finding) [facility] Start: 11-19-2023 End: 12-31-2023 Tobacco smoking status MIIS Ex-smoker (finding) [facility] Start: 06-09-2024 Sex Male (finding) [facility] Clinical Notes 06-25-2021 to 12-16-2022 Note Date [...] secondary to dental infection. see above plan [facility] Other 05-31-2023 NotePROCEDURE: XR ELBOW RT MIN [...] Electronically authenticated by: DELANEY SYED Date: 2022-08-27 08:32[facility]12-15-2022 Evaluation note* Encounter Date Diagnosis Assessment Notes [...] should improve within the next 4-7 days. [facility] Other 11-16-2022 Evaluation note* Encounter Date Diagnosis [...] pain, may use norco for severe pain. [facility] Other 11-04-2022 Evaluation note* Encounter Date Diagnosis Assessment Notes Treatment Notes Treatment Clinical Notes Jan, Abscess of hand, left (ICD-10 - L02.512) I and D performed in office, culture obtained. Patient instructed on soaking protocal, given handout. Rx given for [place] [facility] Other 10-18-2022 Evaluation note* Encounter Date Diagnosis [...] Other specified postprocedural states (ICD-10 - Z98.890) [facility] Other 07-08-2022 Evaluation note* Encounter Date Diagnosis Assessment Notes Treatment Notes Treatment Clinical Notes Sep, Ganglion cyst of finger of left hand (ICD-10 - M67.442) Sutures removed today, patient tolerated well. Patient instructed to slowly progress as tolerated. Patient instructed on wound care Sep, Other specified postprocedural states (ICD-10 - Z98.890) Sep, Visit for suture removal (ICD-10 - Z48.02) [facility] Other 06-07-2022 Evaluation note* Encounter Date Diagnosis Assessment Notes Treatment Notes Treatment Clinical Notes Aug, Ganglion cyst of finger of left hand (ICD-10 - M67.442) We will proceed with surgical excision of mass [facility] Other 05-02-2022 Evaluation note* Encounter Date Diagnosis [...] Z98.890) Patient is progressing well from surgery. [facility] Other 04-12-2022 Evaluation note* Encounter Date Diagnosis [...] Visit for suture removal (ICD-10 - Z48.02) [facility] Other 03-29-2022 Evaluation note* Encounter Date Diagnosis Assessment Notes Treatment Notes Treatment Clinical Notes May, Other specified postprocedural states (ICD-10 - Z98.890) [facility] Other Evnrcation noteNo [facility] Other Evasyation noteNo assessment information available [facility] Work Phone: Evaluation note* Diagnosis Onset Date Resolution Status Anxiety acute Depression acute Screening for deficiency anemia acute Screening for lipid disorders acute Screening for metabolic disorder acute Wellness examination acute [facility] Work Phone: Evaluation note* Diagnosis Onset Date Resolution Status Anxiety acute Depression acute Screening for deficiency anemia acute Screening for lipid disorders acute Screening for metabolic disorder acute Wellness examination acute Anxiety acute [facility] Work Phone: Evaluation note* Diagnosis Onset Date Resolution Status Admit Date Blood in stool acute May 9:35am GERD (gastroesophageal reflu x disease) acute June 09, 2024 9:35am Low back pain acute June 09, 2024 9:35am Right upper quadrant pain acute June 09, 2024 9:35am [facility] Work Phone: History general Narrative - Reported* Type Description Date Medical History Carpal tunnel syndrome of right wrist Medical History Carpal tunnel syndrome of left w rist Medical History Kidney stone Surgical History appendectomy 2011 Hospitalization History see above [facility] Other Hisgvgq general Narrative - Reported* Type Description Date Medical History Carpal tunnel syndrome of right wrist Medical History Carpal tunnel syndrome of left w rist Medical History Kidney stone Surgical History appendectomy 2011 Surgical History left carpal tunnel release Hospitalization History see above [facility] Other Hospital Discharge instructions Additional Instructions Follow-up Dr. Amador 1 to 2 days [facility] are [facility] Work [facility]: Hospital Discharge instructions Additional Instructions Do not drive or operate heavy machinery while taking narcotics or muscle relaxers Follow-up with your orthopedic surgeon, you can also call the phone number below for neurosurgery Perform the stretches and exercises Return for worsening numbness or complete weakness, headache, or other worsening concerns or [facility] Work Phone: Hospital Discharge instructionsAmbulatory Orders* Referral to Gastroenterology Time Frame: 06/09/24, Location: None Selected * Referral to Pain Management Time Frame: 06/09/24, Location: None Selected [facility] Work Phone: Summary Purpose Family History Relationship [...] section and content) DATE CREATED AUTHOR 11/02/2019 [facility] DATE CREATED AUTHOR AUTHOR'S ORGANIZ ATION 05/03/2022 [facility] DATE CREATED AUTHOR AUTHOR'S ORGANIZ ATION 09/05/2022 [facility] REASON FOR VISIT (unrecogniz ed section and content) post op scriptRecheck Left W ristpost op questionsOP ENGINEERING RESEARCH MANAGER LT HAND INDEX FING PAIN (HAD CTR IN [place])Left Hand NoduleRecheck Left Index FingerLeft Hand Pain and SwellingLeft Hand PainRecheck Left HandCONGESTION COUGH SORE THROATTOOTH INFECTION, PAIN Care Teams (unrecognized sec tion and content) Team Status: Inactive Member Role Status [facility] Active Meño Coelho MD Emergency Provider Active Team Status: Active Member Role Status Dates [facility] Primary Care Provider Active Team Status: Inactive Member Role Status Dates [facility] Primary Care Provider Active Mino Gallego DO Emergency Provider Active Team Status: Inactive Member Role Status Dates [facility] Primary Care Provider Active Marilyn Rao MD Attending Provider Active Team Status: Active Member Role Status Dates La Contreras MINI LAB OPERATOR ENGINEERING RESEARCH MANAGER-C Primary Care Provider Active Team Status: Inactive Member Role Status Dates La Contreras APRN ENGINEERING RESEARCH MANAGER-C Primary Care Provider, Attending Provider Active Start: November 19, 2023 End: November 19, 2023 Team Status: Inactive Member Role Status Dates La Contreras APRN ENGINEERING RESEARCH MANAGER-C Primary Care Provider, Attending Provider Active Start: December 31, 2023 End: December 31, 2023 Team Status: Inactive Member Role Status Dates La Contreras APRN ENGINEERING RESEARCH MANAGER-C Primary Care Provider, Attending Provider Active Start: [...] BE BASED ON THE PRIMARY CLINICAL RECORDS. [employer] provides no warranty or guarantee of the accuracy or completeness of information in this document.
--- NOTE | 2024-06-13 10:48 | US_ITS ---
[place] [id number] Patient Name: AMRITA COX MRN: [id number] date: 1980 Sex: M Assigned Patient Location: [place] Current Patient Location: [place] Accession/Order Number: [id number] Exam Date: 06/13/2024 13:09 Report Date: 06/13/2024 13:10 At the request of: ANGIE MONSALVE Procedure: US right upper quadrant LIMITED ABDOMINAL ULTRASOUND: CLINICAL HISTORY: Right Upper Quadrant Abdominal Pain COMPARISON: None TECHNIQUE: Grayscale and color Doppler images of the right upper quadrant organs were obtained. FINDINGS: Pancreas: Not visualized. Liver: Fatty infiltration. Gallbladder: Unremarkable. CBD: 3.9 mm US/US right upper quadrant IMPRESSION: FATTY INFILTRATION OF THE LIVER. NO ACUTE PROCESS IS SEEN.. Impression dictated by: David Curry Jr., D.O.06/13/2024 1:10 PM Dictation Location: [place] [address] Electronically authenticated by: [id number] Y Date: 06/13/2024 13:10
== END 2024-06-13 10:43 | disposition home or self-care (01) ==
LOC: US 10:42
PROVIDERS: PCP Nurse Practitioner Family; Visit Provider Nurse Practitioner Family
DX: R10.11 Right upper quadrant pain (principal); K76.0 Fatty (change of) liver, not elsewhere classified
CPT/HCPCS: 76705

== ENCOUNTER 2024-06-24 07:44 | Outpatient (OUT) | payer OTHER, SELFPAY ==
--- NOTE | 2024-06-24 07:47 | CT_ITS ---
The [address] [address] Patient Name: AMRITA COX MRN: [id number] date: 1980 Sex: M Assigned Patient Location: CT Current Patient Location: CT Accession/Order Number: [id number] Exam Date: 06/24/2024 10:17 Report Date: 06/24/2024 10:27 At the request of: ANGIE MONSALVE Procedure: CT abdomen pelvis wo/w con CT Abdomen and Pelvis withoutcontrast TECHNIQUE: Axial imaging with 2-D reconstruction. . The CT exam was performed using one or more the following dose reduction techniques: Automated exposure control, adjustment of the MA and/or Kv according to patient size, or use of the iterative reconstruction technique. COMPARISON: None History: Right upper quadrant pain. Blood in stool. Fatty liver. History of pancreatitis. LIMITATIONS: None LOWER THORAX Unremarkable LIVER: Mild hepatic steatosis GALLBLADDER: No gallbladder abnormality identified. BILE DUCTS: No dilatation SPLEEN: Unremarkable PANCREAS: Unremarkable ADRENAL GLANDS: Unremarkable KIDNEYS:Unremarkable AORTA: No abdominal aortic aneurysm identified. RETROPERITONEUM: No significant retroperitoneal abnormalities identified. MESENTERY:Unremarkable SMALL BOWEL: The small bowel loops are nondistended. APPENDIX: Appendectomy changes identified. Correlate with surgical history. COLON: Moderate stool throughout the colon. No colon wall thickening. No adjacent inflammation. Contrast present in the proximal colon. URINARY BLADDER: Urinary bladder is unremarkable. REPRODUCTIVE SYSTEM: Prostatomegaly. Benign dystrophic prostate calcifications. PNEUMOPERITONEUM: None PERITONEAL FLUID:None BONY STRUCTURES: Degenerative change ABDOMINAL WALL: Unremarkable CT/CT abdomen pelvis wo/w con IMPRESSION: No acute findings. Moderate constipation. No colitis or diverticulitis. Prostatomegaly. Hepatic steatosis. Impression dictated by: Tony Verde M.D.06/24/2024 10:27 AM Dictation Location: [place] [address] Electronically authenticated by: [id number] Y Date: 06/24/2024 10:27
--- OUTSIDE RECORDS SUMMARY | 2024-06-24 07:47 | XMS_ITS | CCD ---
Author Organization [facility] Care Team Providers Care Dredgemaster Name Role Phone Collins Cruz Unavailable Marilyn Rao Unavailable [facility], [facility] Primary Care Provider MD Meño Coelho Emergency Provider DO Mino Gallego Emergency Provider [phone] [facility] Primary Care Provider MD Meño Coelho Emergency Provider DO Mino Gallego Emergency Provider MD Marilyn Rao Attending Provider Marilyn Rao Admitting Unavailable Marilyn Rao Attending Unavailable [facility], [facility] Primary Care Unavailable Olexa, Collins Attending Unavailable Olexa, Collins Admitting Unavailable [facility], [facility] Primary Care Unavailable Nancy, Collins Attending Unavailable Frankixa, Collins Admitting Unavailable [facility], [facility] Primary Care Unavailable [facility], [facility] Primary Care Unavailable Marilyn aRo Attending Unavailable Marilyn Rao Admitting Unavailable [facility], [facility] Primary Care Unavailable Mino Gallego Attending Unavailable Mino Gallego Admitting [facility]available [facility] Primary Care Unavailable Meño Coelho Attending Unavailable Meño Coelho Admitting Unavailable Olexa, Collins Attending Unavailable Frankixa, Collins Admitting Unavailable [facility], [facility] Primary Care Unavailable Marilyn Rao Attending Unavailable Marilyn Rao Admitting Unavailable [facility], [facility] Primary Care Unavailable Hazel Amato Unavailable DR ALVINO BACK Admitting Unavailable [facility] VIRAMONTES Primary Care Unavailable RAJIV [...] Drug Class(es) Dates Sig (Normalized) Sig (Original) [id number] 200 actuat albuterol 0.09 mg/actuat metered dose [...] extended release oral tablet (2 sources) Uncompetitive U-fjrvuj-D-aspa rtate Receptor Antagonist, Sigma-1 Agonist Start: 03-13-2022 take 1 tablet by mouth every twelve hours Mucinex DM 30-600 MG 1 tablet as needed Orally every 12 hrs Feb, Not-Taking docusate sodium 50 mg / sennosides, penitentiary 8.6 mg oral tablet (6 sources) Start: [...] 10-04-2021 Episodic Other aftercare (1 source) Other detention (current) drug therapy; 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 Normal [facility] Comment on above: Performed By: #### A ERC #### [place] [address] [place] CULTURE WOUNDon 01-28-2022 CULTURE WOUND Culture [...] S C Oxacillin 2 S C Normal [facility] Comment on above: Performed By: #### W OUNDCX ####[facility] [id number] [place] [address]Dr. Miguel Devries CBC AUTO DIFFon 01-24-2022 BASO # 0.1 103/ul Normal 0.0-0.1 [facility] Comment on above: Performed By: #### C BC #### [facility] [address] [address] [address] Miguel Devries Basophils/100 WBC (Bld) 0.4 % Normal 0.2-2.0 [facility] Comment on above: Performed By: #### C BC #### [facility] [address] [address] [address] Miguel Devries EO # 0.4 103/ul Normal 0.0-0.7 [facility] Comment on above: Performed By: #### C BC #### [facility] [address] [address] [address] Miguel Devries Eosinophils/100 WBC (Bld) 2.8 % Normal 0.9-7.0 [facility] Comment on above: Performed By: #### C BC #### [facility] [address] [place] [address] Dr. Miguel Devries Erythrocyte distribution width (RBC) [Ratio] 12.3 % Normal 11.0-15.0 [facility] Comment on above: Performed By: #### C BC #### [facility] [address] [place] [address] Dr. Miguel Devries Hematocrit (Bld) [Volume fraction] 40.9 % Critically low 42.0-54.0 [facility] Comment on above: Performed By: #### C BC #### [facility] [address] [address] [address] Miguel Devries Hemoglobin (Bld) [Mass/Vol] 14.7 g/dL Normal 14.0-18.0 [facility] Comment on above: Performed By: #### C BC #### [facility] [address] [address] [address] Miguel Devries IG # 0.06 10e3/ul Critically high 0.00-0.03 [facility] Comment on above: Performed By: #### C BC #### [facility] [address] [address] [address] Miguel Devries IG % 0.4 % Normal 0.0-0.5 [facility] Comment on above: Performed By: #### C BC #### [facility] [address] [place] [address] Dr. Miguel Devries LYMPH # 2.6 103/ul Normal 1.2-3.8 [facility] Comment on above: Performed By: #### C BC #### [facility] [address] [place] [address] Dr. Miguel Devries Lymphocytes/100 WBC (Bld) 17.6 % Critically low 20.5-60.0 [facility] Comment on above: Performed By: #### C BC #### [facility] [address] [place] [address] Dr. Miguel Devries MANUAL DIFF REQ NO Normal [facility] Comment on above: Performed By: #### C BC #### [facility] [address] [place] [address] Dr. Miguel Devries MCH (RBC) [Entitic mass] 32.5 pg Normal 25.9-34.0 [facility] Comment on above: Performed By: #### C BC #### [facility] [address] [place] [address] Dr. Miguel Devries MCHC (RBC) [Mass/Vol] 35.9 g/dL Critically high 29.9-35.2 [facility] Comment on above: Performed By: #### C BC #### [facility] [address] [address] [address] Miguel Devries MCV (RBC) [Entitic vol] 90.5 fL Normal 80.0-94.0 [facility] Comment on above: Performed By: #### C BC #### [facility] [address] [address] [address] Miguel Devries MONO # 1.1 103/ul Critically high 0.3-0.8 [facility] Comment on above: Performed By: #### C BC #### [facility] [address] [place] [address] Dr. Miguel Devries Monocytes/100 WBC (Bld) 7.2 % Normal 1.7-12.0 [facility] Comment on above: Performed By: #### C BC #### [facility] [address] [place] [address] Dr. Miguel Devries NEUT # 10.6 103/ul Critically high 1.4-6.5 [facility] Comment on above: Performed By: #### C BC #### [facility] [address] [place] [address] Dr. Miguel Devries Neutrophils/100 WBC (Bld) 71.6 % Normal 43.0-75.0 [facility] Comment on above: Performed By: #### C BC #### [facility] [address] [place] [address] Dr. Miguel Devries Platelet mean volume (Bld) [Entitic vol] 9.7 fL Normal 9.5-13.5 [facility] Comment on above: Performed By: #### C BC #### [facility] [address] [place] [address] Dr. Miguel Devries PLT 266 103/ul Normal 150-450 [facility] Comment on above: Performed By: #### C BC #### [facility] [address] [place], [place] [id number] Dr. Miguel Devries RBC 4.52 106/ul Critically low 4.70-6.10 [facility] Comment on above: Performed By: #### C BC #### [facility] [address] [place] [address] Dr. Miguel Devries WBC 14.7 103/ul Critically high 4.0-11.0 [facility] Comment on above: Performed By: #### C BC #### [facility] [address] [address] [address] Miguel Devries CULTURE BLOODon 01-24-2022 Microscopic examination of blood, culture Culture Observations: NO GROWTH AT 5 DAYS. Normal [facility] Comment on above: Performed By: #### B LDCX2 ####[facility] [id number] [place] [address]Dr. Miguel Devries Microscopic examination of blood, culture Culture Observations: NO GROWTH AT 5 DAYS. Normal [facility] Comment on above: Performed By: #### B LDCX1 ####[facility] [id number] [place] [address]Dr. Miguel Devries PROF 14(COMP METB)on 022 Albumin [Mass/Vol] 3.4 g/dL Normal 3.4-5.0 [facility] Comment on above: Performed By: #### C MP #### [facility] [address] [place] [address] Dr. Miguel Devries Albumin/Globulin [Mass ratio] 1.1 {ratio} Normal [facility] Comment on above: Performed By: #### C MP #### [facility] [address] [place] [address] Dr. Miguel Devries ALP [Catalytic activity/Vol] 66 U/L Normal 46-116 [facility] Comment on above: Performed By: #### C MP #### [facility] [address] [place] [address] Dr. Miguel Devries ALT [Catalytic activity/Vol] 28 U/L Normal 16-63 [facility] Comment on above: Performed By: #### C MP #### [facility] [address] [place] [address] Dr. Miguel Devries Anion gap [Moles/Vol] 9.8 mmol/L Normal [facility] Comment on above: Performed By: #### C MP #### [facility] [address] [place] [address] Dr. Miguel Devries AST [Catalytic activity/Vol] 16 U/L Normal 15-37 [facility] Comment on above: Performed By: #### C MP #### [facility] [address] [address] [address] Miguel Devries Bilirubin [Mass/Vol] 0.2 mg/dL Normal 0.2-1.0 [facility] Comment on above: Performed By: #### C MP #### [facility] [address] [address] [address] Miguel Devries Calcium [Mass/Vol] 8.0 mg/dL Critically low 8.5-10.1 Th e [facility] Comment on above: Performed By: #### C MP #### [facility] [address] [place] [address] Dr. Miguel Devries Chloride [Moles/Vol] 106 mmol/L Normal 98-107 [facility] Comment on above: Performed By: #### C MP #### [facility] [address] [place] [address] Dr. Miguel Devries CO2 [Moles/Vol] 27.6 mmol/L Normal 21.0-32.0 [facility] Comment on above: Performed By: #### C MP #### [facility] [address] [place] [address] Dr. Miguel Devries Creatinine [Mass/Vol] 0.79 mg/dL Normal 0.70-1.30 [facility] Comment on above: Performed By: #### C MP #### [facility] [address] [place] [address] Dr. Miguel Devries EGFR-AF SYRIAN >60 Normal >=60 [facility] Comment on above: Performed By: #### C MP #### [facility] [address] [place] [address] Dr. Miguel Devries EGFR-NON AF SYRIAN >60 Normal >=60 [facility] Comment on above: Performed By: #### C MP #### [facility] [address] [place] [address] Dr. Miguel Devries Globulin (S) [Mass/Vol] 3.0 g/dL Normal T [facility] Comment on above: Performed By: #### C MP #### [facility] [address] [address] [address] Miguel Devries Glucose [Mass/Vol] 113 mg/dL Critically high 74-106 [facility] Comment on above: Performed By: #### C MP #### [facility] [address] [address] [address] Miguel Devries Potassium [Moles/Vol] 3.4 mmol/L Critically low 3.5-5.1 [facility] Comment on above: Performed By: #### C MP #### [facility] [address] [address] [address] Miguel Devries Protein [Mass/Vol] 6.4 g/dL Normal 6.4-8.2 [facility] Comment on above: Performed By: #### C MP #### [facility] [address] [address] [address] Miguel Devries Sodium [Moles/Vol] 140 mmol/L Normal 136-145 [facility] Comment on above: Performed By: #### C MP #### [facility] [address] [address] [address] Miguel Devries Urea nitrogen [Mass/Vol] 14.0 mg/dL Normal 7.0-18.0 [facility] Comment on above: Performed By: #### C MP #### [facility] [address] [address] [address] Miguel Devries Urea nitrogen/Creatinine [Mass ratio] 17.7 mg/mg Normal [facility] Comment on above: Performed By: #### C MP #### [facility] [address] [address] [address] Miguel Devries XR CSPINE 2_3 VIEWSon [...] by: DELANEY SYED Date: 2022-01-23 18:16 Normal [facility] ECG 12 lead ECGon 01-19-2022 ECG 12 lead ECG [facility] [place] [address] [place] [address] Electrocardiograph Report Signed Patient: Sukh Cisneros MR#: [id number] : 1980 Acct:[id number] Age/Sex: 41 / M ADM Date: 01/18/22 Loc: ER Room: Type: [facility] ER Attending Dr: Ordering Provider: Mino [...] longer present Confirmed by Mino Gallego DO ([id number]) on 01/19/2022 4:26:01 AM Referred By: Electronically Signed By:Mino Gallego DO Transcribed By: MUS Signed By Mino Gallego DO 01/19 0426 Normal [facility] CT CSPINE WO CONon 2 CT CSPINE [...] by: REINA FRANKLIN Date: 2022-01-18 11:02 Normal [facility] Basic Metabolic Panelon 10- Anion gap [Moles/Vol] 12.0 mmol/L Normal 6.0-15.0 [facility] Comment on above: Performed By: #### C BC, BMP #### [facility] [address] Calcium [Mass/Vol] 8.7 mg/dL Normal 8.2-10.2 [facility] Comment on above: Performed By: #### C BC, BMP #### [facility] [address] Chloride [Moles/Vol] 105 mmol/L Normal 95-[address] [facility] Comment on above: Performed By: #### C BC, BMP #### [facility] [address] CO2 [Moles/Vol] 22.9 mmol/L Normal 22.0-30.0 [facility] Comment on above: Performed By: #### C BC, BMP #### [facility] [address] Creatinine [Mass/Vol] 0.73 mg/dL Normal 0.64-1.27 [facility] Comment on above: Performed By: #### C BC, BMP #### [facility] [address] [place] [address] [place] Creatinine Clr Calc Pharmacy 161.10 Normal [facility] Comment on above: Result Comment: PERF ORMED BY: [place] [address] PATHOLOGIST ZINC MINER JENNY ALEMAN M.D. Performed By: #### C BC, BMP #### [place] [address] [place] Estimated GFR ( Sheela > 60 Normal [facility] Comment on above: Result Comment: GFR estimated reference range: According to KDOQI guidelines, <60 ml/min/1.73m2 is sufficient to diagnose a patient with chronic kidney disease. Performed By: #### C BC, BMP #### [address] Estimated GFR (Non- Am > 60 Normal [facility] Comment on above: Performed By: #### C BC, BMP #### [address] Glucose [Mass/Vol] 91 mg/dL Normal 70-100 [facility] Comment on above: Result Comment: [place] Glucose Reference Range is dependent on time and content of last meal. Glucose of more than 200 mg/dL in a nonstressed, ambulatory subject supports the diagnosis of Diabetes Mellitus. ADA recommended reference range Performed By: #### C BC, BMP #### [address] Potassium [Moles/Vol] 3.9 mmol/L Normal 3.5-5.1 [facility] Comment on above: Performed By: #### C BC, BMP #### [address] Sodium [Moles/Vol] 136 mmol/L Normal 136-146 [facility] Comment on above: Performed By: #### C BC, BMP #### [address] Urea nitrogen [Mass/Vol] 7 mg/dL Low 9-23 [facility] Comment on above: Performed By: #### C BC, BMP #### [place] [address] [place] Basophils Auto (Bld) [#/Vol] Ordered By: Meño Coelho on 01-13-2022 Basophils (Bld) [#/Vol] 0.1 10*3/uL 0.0-0.2 [facility] Basophils/100 WBC Auto (Bld) Ordered By: Meño Coelho on 01-13-2022 Basophils/100 WBC (Bld) 0.8 % . F [facility] Complete Blood Count Auto Di ffon 01-13-2022 Basophils (Bld) [#/Vol] 0.1 10*3/uL Normal 0.0-0.2 [facility] Comment on above: Result Comment: PERF ORMED BY: [place] [address] PATHOLOGIST ZINC MINER JENNY ALEMAN M.D. Performed By: #### C BC, BMP #### [address] Basophils/100 WBC (Bld) 0.8 % Normal . [facility] Comment on above: Performed By: #### C BC, BMP #### [address] Eosinophils (Bld) [#/Vol] 0.4 10*3/uL Normal 0.0-0.45 [facility] Comment on above: Performed By: #### C BC, BMP #### [address] Eosinophils/100 WBC (Bld) 6.2 % Normal . [facility] Comment on above: Performed By: #### C BC, BMP #### [address] Erythrocyte distribution width (RBC) [Ratio] 12.7 % Normal 12.0-14.8 [facility] Comment on above: Performed By: #### C BC, BMP #### [address] Hematocrit (Bld) [Volume fraction] 44.2 % Normal 38.8-50.0 [facility] Comment on above: Performed By: #### C BC, BMP #### [address] Hemoglobin (Bld) [Mass/Vol] 15.1 g/dL Normal 13.0-17.0 [facility] Comment on above: Performed By: #### C BC, BMP #### [address] Lymphocytes (Bld) [#/Vol] 2.6 10*3/uL Normal 1.00-4.8 [facility] Comment on above: Performed By: #### C BC, BMP #### [address] Lymphocytes/100 WBC (Bld) 38.5 % Normal . [facility] Comment on above: Performed By: #### C BC, BMP #### [address] MCH (RBC) [Entitic mass] 32.1 pg Normal 27.5-35.2 [facility] Comment on above: Performed By: #### C BC, BMP #### [address] MCV (RBC) [Entitic vol] 94.1 fL Normal 83.5-101 F [facility] Comment on above: Performed By: #### C BC, BMP #### [address] Mean Corpuscular HGB Conc 34.2 g/dL Normal 32.5-35.6 [facility] Comment on above: Performed By: #### C BC, BMP #### [address] Monocytes (Bld) [#/Vol] 0.5 10*3/uL Normal 0.0-0.8 [facility] Comment on above: Performed By: #### C BC, BMP #### [address] Monocytes/100 WBC (Bld) 7.1 % Normal . [facility] Comment on above: Performed By: #### C BC, BMP #### [address] Neutrophils (Bld) [#/Vol] 3.2 10*3/uL Normal 1.8-7.7 [facility] Comment on above: Performed By: #### C BC, BMP #### [place] [address] [place] Neutrophils/100 WBC (Bld) 47.4 % Normal . [facility] Comment on above: Performed By: #### C ROB, BMP #### [address] Nucleated RBC/100 WBC (Bld) [Ratio] 0.1 % Normal 0-0.5 [facility] Comment on above: Performed By: #### C ROB, BMP #### [address] Platelet mean volume (Bld) [Entitic vol] 8.9 fL Normal 6.6-10.1 [facility] Comment on above: Performed By: #### C ROB, BMP #### [address] Platelets (Bld) [#/Vol] 209 10*3/uL Normal 150-450 [facility] Comment on above: Performed By: #### C ROB, BMP #### [address] RBC (Bld) [#/Vol] 4.70 10*6/uL Normal 3.90-5.[address] [facility] Comment on above: Performed By: #### C ROB, BMP #### [address] WBC (Bld) [#/Vol] 6.8 10*3/uL Normal 4.5-11.0 [facility] Comment on above: Performed By: #### C ROB, BMP #### [address] Creatinine and Glomerular fi ltration rate.predicted panel (S/P/Bld)Ordered By: Meño Coelho on 01-13-2022 Creatinine [Mass/Vol] 0.73 mg/dL 0.64-1.27 [facility] Eosinophils Auto (Bld) [#/Vo l]Ordered By: Meño Coelho on 01-13-2022 Eosinophils (Bld) [#/Vol] 0.4 10*3/uL 0.0-0.45 [facility] Eosinophils/100 WBC Auto (Bl d)Ordered By: Meño Coelho on 01-13-2022 Eosinophils/100 WBC (Bld) 6.2 % . [facility] Erythrocyte distribution wid th Auto (RBC) [Ratio]Ordered By: Meño Coelho on 01-13-2022 Erythrocyte distribution width (RBC) [Ratio] 12.7 % 12.0-14.8 [facility] Estimated glomerular filtrat ion rate (GFR) non- AmericanOrdered By: Meño Coelho on 01-13-2022 GFR/1.73 sq M.predicted among non-blacks MDRD (S/P/Bld) [Vol rate/Area] > 60 mL/Min [facility] Hematocrit Auto (Bld) [Volum e fraction]Ordered By: Meño Coelho on 01-13-2022 Hematocrit (Bld) [Volume fraction] 44.2 % 38.8-50.0 [facility] Hemoglobin [Mass/volume] in BloodOrdered By: Meño Coelho on 01-13-2022 Hemoglobin (Bld) [Mass/Vol] 15.1 g/dL 13.0-17.0 [facility] Laboratory - Hematology and Cell countsOrdered By: Meño Coelho on 01-13-2022 Nucleated RBC/100 WBC (Bld) [Ratio] 0.1 % 0-0.5 [facility] Leukocytes [#/volume] in Blo od by Automated countOrdered By: Meño Coelho on 01-13-2022 WBC (Bld) [#/Vol] 6.8 10*3/uL 4.5-11.0 [facility] Lymphocytes Auto (Bld) [#/Vo l]Ordered By: Meño Coelho on 01-13-2022 Lymphocytes (Bld) [#/Vol] 2.6 10*3/uL 1.00-4.8 [facility] Lymphocytes/100 WBC Auto (Bl d)Ordered By: Meño Coelho on 01-13-2022 Lymphocytes/100 WBC (Bld) 38.5 % . [facility] MCH Auto (RBC) [Entitic mass ]Ordered By: Meño Coelho on 01-13-2022 MCH (RBC) [Entitic mass] 32.1 pg 27.5-35.2 [facility] MCHC Auto (RBC) [Mass/Vol]Or dered By: Meño Coelho on 01-13-2022 MCHC (RBC) [Mass/Vol] 34.2 g/dL 32.5-35.[address] [facility] MCV Auto (RBC) [Entitic vol] Ordered By: Meño Coelho on 01-13-2022 MCV (RBC) [Entitic vol] 94.1 fL 83.5-101 F [facility] Monocytes Auto (Bld) [#/Vol] Ordered By: Meño Coelho on 01-13-2022 Monocytes (Bld) [#/Vol] 0.5 10*3/uL 0.0-0.8 [facility] Monocytes/100 WBC Auto (Bld) Ordered By: Meño Coelho on 01-13-2022 Monocytes/100 WBC (Bld) 7.1 % . [facility] Neutrophils Auto (Bld) [#/Vo l]Ordered By: Meño Coelho on 01-13-2022 Neutrophils (Bld) [#/Vol] 3.2 10*3/uL 1.8-7.7 [facility] Neutrophils/100 WBC Auto (Bl d)Ordered By: Meño Coelho on 01-13-2022 Neutrophils/100 WBC (Bld) 47.4 % . [facility] No Panel InformationOrdered By: Meño Coelho on 01-13-2022 Estimated GFR () > 60 mL/Min [facility] Comment on above: GFR estimated refere nce range: According to KDOQI guidelines, <60 ml/min/1.73m2 is sufficient to diagnose a patient with chronic kidney disease. Pharmacy Creatinine Clearance (Chem 161.10 [facility] Platelet mean volume Auto (B ld) [Entitic vol]Ordered By: Meño Coelho on 01-13-2022 Platelet mean volume (Bld) [Entitic vol] 8.9 fL 6.6-10.1 [facility] Platelets Auto (Bld) [#/Vol] Ordered By: Meño Coelho on 01-13-2022 Platelets (Bld) [#/Vol] 209 10*3/uL 150-450 [facility] RBC Auto (Bld) [#/Vol]Ordere d By: Meño Coelho on 01-13-2022 RBC (Bld) [#/Vol] 4.70 10*6/uL 3.90-5.[address] [facility] Serum or plasma anion gap de terminationOrdered By: Meño Coelho on 01-13-2022 Anion gap [Moles/Vol] 12.0 mmol/L 6.0-15.0 [facility] Serum or plasma calcium roseline urement (mass/volume)Ordered By: Meño Coelho on 01-13-2022 Calcium [Mass/Vol] 8.7 mg/dL 8.2-10.2 [facility] Serum or plasma chloride mary jo surement (moles/volume)Ordered By: Meño Coelho on 01-13-2022 Chloride [Moles/Vol] 105 mmol/L 95-[address] [facility] Serum or plasma glucose roseline urement (mass/volume)Ordered By: Meño Coelho on 01-13-2022 Glucose [Mass/Vol] 91 mg/dL 70-100 [facility] Comment on above: ADA recommended refe rence rangeRandom Glucose Reference Range is dependent on time and content of last meal. Glucose of more than 200 mg/dL in a nonstressed, ambulatory subject supports the diagnosis of Diabetes Mellitus. Serum or plasma potassium me asurement (moles/volume)Ordered By: Meño Coelho on 01-13-2022 Potassium [Moles/Vol] 3.9 mmol/L 3.5-5.1 [facility] Serum or plasma sodium measu rement (moles/volume)Ordered By: Meño Coehlo on 01-13-2022 Sodium [Moles/Vol] 136 mmol/L 136-146 [facility] Serum or plasma total carbon dioxide measurement (moles/volume)Ordered By: Meño Coelho on 01-13-2022 CO2 [Moles/Vol] 22.9 mmol/L 22.0-30.0 [facility] Serum or plasma urea nitroge n measurement (mass/volume)Ordered By: Meño Coelho on 01-13-2022 Urea nitrogen [Mass/Vol] 7 mg/dL 12-20 [facility] CBC AUTO DIFFon 01-11-2022 BASO # 0.0 103/ul Normal 0.0-0.1 [facility] Comment on above: Performed By: #### C BC #### [facility] [address] [place] [address] Dr. Miguel Devries Basophils/100 WBC (Bld) 0.4 % Normal 0.2-2.0 [facility] Comment on above: Performed By: #### C BC #### [facility] [address] [place] [address] Dr. Miguel Devries EO # 0.5 103/ul Normal 0.0-0.7 [facility] Comment on above: Performed By: #### C BC #### [facility] [address] [place] [address] Dr. Miguel Devries Eosinophils/100 WBC (Bld) 5.0 % Normal 0.9-7.0 [facility] Comment on above: Performed By: #### C BC #### [facility] [address] [place] [address] Dr. Miguel Devries Erythrocyte distribution width (RBC) [Ratio] 11.9 % Normal 11.0-15.0 [facility] Comment on above: Performed By: #### C BC #### [facility] [address] [place] [address] Dr. Miguel Devries Hematocrit (Bld) [Volume fraction] 44.8 % Normal 42.0-54.0 [facility] Comment on above: Performed By: #### C BC #### [facility] [address] [place] [address] Dr. Miguel Devries Hemoglobin (Bld) [Mass/Vol] 15.7 g/dL Normal 14.0-18.0 [facility] Comment on above: Performed By: #### C BC #### [facility] [address] [place] [address] Dr. Miguel Devries IG # 0.03 10e3/ul Normal 0.00-0.03 [facility] Comment on above: Performed By: #### C BC #### [facility] [address] [place] [address] Dr. Miguel Devries IG % 0.3 % Normal 0.0-0.5 [facility] Comment on above: Performed By: #### C BC #### [facility] [address] [place] [address] Dr. Miguel Devries LYMPH # 2.5 103/ul Normal 1.2-3.8 [facility] Comment on above: Performed By: #### C BC #### [facility] [address] [place] [address] Dr. Miguel Devries Lymphocytes/100 WBC (Bld) 25.6 % Normal 20.5-60.0 [facility] Comment on above: Performed By: #### C BC #### [facility] [address] [place] [address] Dr. Miguel Devries MANUAL DIFF REQ NO Normal [facility] Comment on above: Performed By: #### C BC #### [facility] [address] [place] [address] Dr. Miguel Devries MCH (RBC) [Entitic mass] 32.2 pg Normal 25.9-34.0 [facility] Comment on above: Performed By: #### C BC #### [facility] [address] [place] [address] Dr. Miguel Devries MCHC (RBC) [Mass/Vol] 35.0 g/dL Normal 29.9-35.2 [facility] Comment on above: Performed By: #### C BC #### [facility] [address] [place] [address] Dr. Miguel Devries MCV (RBC) [Entitic vol] 92.0 fL Normal 80.0-94.0 [facility] Comment on above: Performed By: #### C BC #### [facility] [address] [place] [address] Dr. Miguel Devries MONO # 0.7 103/ul Normal 0.3-0.8 [facility] Comment on above: Performed By: #### C BC #### [facility] [address] [place] [address] Dr. Miguel Devries Monocytes/100 WBC (Bld) 7.2 % Normal 1.7-12.0 [facility] Comment on above: Performed By: #### C BC #### [facility] [address] [place] [address] Dr. Miguel Devries NEUT # 5.9 103/ul Normal 1.4-6.5 [facility] Comment on above: Performed By: #### C BC #### [facility] [address] [place] [address] Dr. Miguel Devries Neutrophils/100 WBC (Bld) 61.5 % Normal 43.0-75.0 [facility] Comment on above: Performed By: #### C BC #### [facility] [address] [place] [address] Dr. Miguel Devries Platelet mean volume (Bld) [Entitic vol] 10.0 fL Normal 9.5-13.5 [facility] Comment on above: Performed By: #### C BC #### [facility] [address] [place] [address] Dr. Miguel Devries PLT 252 103/ul Normal 150-450 [facility] Comment on above: Performed By: #### C BC #### [facility] [address] [place] [address] Dr. Miguel Devries RBC 4.87 106/ul Normal 4.70-6.10 [facility] Comment on above: Performed By: #### C BC #### [facility] [address] [place] [address] Dr. Miguel Devries WBC 9.6 103/ul Normal 4.0-11.0 [facility] Comment on above: Performed By: #### C BC #### [facility] [address] [place] [address] Dr. Miguel Devries CRPon 01-11-2022 CRP [Mass/Vol] mg/L Normal <=1.0 [facility] Comment on above: Performed By: #### C RP, BMP #### [facility] [address] [place] [address] HAND LT WO [...] by: ARMAND JUARES Date: 2022-01-11 18:50 Normal [facility] CULTURE BLOODon 01-11-2022 Microscopic examination of blood, culture Culture Observations: No growth at 5 days. Normal [facility] Comment on above: Performed By: #### B LDCX2 #### [facility] [address] [address] [address] Miguel Devries Microscopic examination of blood, culture Culture Observations: No growth at 5 days. Normal [facility] Comment on above: Performed By: #### B LDCX1 #### [facility] [address] [place], [place] [address] Dr. Miguel Devries LACTATE/LACTIC ACIDon 2021 Lactate [Moles/Vol] 1.0 mmol/L Normal 0.4-1.9 [facility] Comment on above: Performed By: #### L ACT ####[facility] [address] [place] [address]Dr. Miguel Devries PROF CHEM 8 (BAS METB)on Anion gap [Moles/Vol] 10.3 mmol/L Normal [facility] Comment on above: Performed By: #### C RP, BMP #### [facility] [address] [address] [address] Miguel Devries Calcium [Mass/Vol] 9.1 mg/dL Normal 8.5-10.1 [facility] Comment on above: Performed By: #### C RP, BMP #### [facility] [address] [place] [address] Dr. Miguel Devries Chloride [Moles/Vol] 104 mmol/L Normal 98-107 [facility] Comment on above: Performed By: #### C RP, BMP #### [facility] [address] [place] [address] Dr. Miguel Devries CO2 [Moles/Vol] 26.5 mmol/L Normal 21.0-32.0 [facility] Comment on above: Performed By: #### C RP, BMP #### [facility] [address] [place] [address] Dr. Miguel Devries Creatinine [Mass/Vol] 0.81 mg/dL Normal 0.70-1.30 [facility] Comment on above: Performed By: #### C RP, BMP #### [facility] [address] [address] [address] Miguel Devries EGFR-AF SYRIAN >60 Normal >=60 [facility] Comment on above: Performed By: #### C RP, BMP #### [facility] [address] [address] [address] Miguel Devries EGFR-NON AF SYRIAN >60 Normal >=60 [facility] Comment on above: Performed By: #### C RP, BMP #### [facility] [address] [address] [address] Miguel Devries Glucose [Mass/Vol] 96 mg/dL Normal 74-106 [facility] Comment on above: Performed By: #### C RP, BMP #### [facility] [address] [address] [address] Miguel Devries Potassium [Moles/Vol] 3.8 mmol/L Normal 3.5-5.1 [facility] Comment on above: Performed By: #### C RP, BMP #### [facility] [address] [address] [address] Miguel Devries Sodium [Moles/Vol] 137 mmol/L Normal 136-145 [facility] Comment on above: Performed By: #### C RP, BMP #### [facility] [address] [address] [address] Miguel Devries Urea nitrogen [Mass/Vol] 10.0 mg/dL Normal 7.0-18.0 [facility] Comment on above: Performed By: #### C RP, BMP #### [facility] [address] [place] [address] Dr. Miguel Devries Urea nitrogen/Creatinine [Mass ratio] 12.3 mg/mg Normal [facility] Comment on above: Performed By: #### C RP, BMP #### [facility] [address] [place] [address] Dr. Miguel Devries SED RATE [facility] 2021 SED RATE 13 mm/hr Normal <=15 [facility] Comment on above: Performed By: #### S EDR #### [facility] [address] [place] [address] Dr. Miguel Devries Drug Screen,Urineon 09-20-19 22 Amphetamine Screen,Urine Positive High Negative [facility] Comment on above: Performed By: #### U RDS #### [facility] [address] [place] [address] [place] Barbiturate Screen,Urine Negative Normal Negative [facility] Comment on above: Performed By: #### U RDS #### [facility] [address] [place] [address] [place] Benzodiazepines Screen,Urine Negative Normal Negative [facility] Comment on above: Performed By: #### U RDS #### [address] Cannabinoid Screen,Urine Positive High Negative [facility] Comment on above: Result Comment: Thes e are unconfirmed results and should not be used for legal purposes. Drug Cut-Off Concentration: AMPH 1000 ng/mL SHERRIE 200 ng/mL MONICA 200 ng/mL COCM 300 ng/mL OP 300 ng/mL PCP 25 ng/mL THC 20 ng/mL PERFORMED BY: [place] [address] PATHOLOGIST ZINC MINER JENNY ALEMAN M.D. Performed By: #### U RDS #### [address] Cocaine Screen,Urine Negative Normal Negative [facility] Comment on above: Performed By: #### U RDS #### [address] Opiate Screen,Urine Negative Normal Negative [facility] Comment on above: Performed By: #### U RDS #### [address] Phencyclidine Screen,Urine Negative Normal Negative [facility] Comment on above: Performed By: #### U RDS #### [address] Marcos 09-19-2021 L -- Specimen: [id number] Received: 09/19/21 Status: JHON [place] Num: [id number] Spec Type: Surgical Subm Dr: aMrilyn Rao MD Tissues: A Skin-Other than Cyst, tag, debridement or plastic repair (LT INDEX FINGER) Procedures: HE Stain, Gross/Micro L3 -- Patient Age/Sex Location Account Attending Physician -- Sukh Cisneros/M AR [id number] Marilyn Rao MD -- SPEC NUM: [id number] RECD: 09/19/21 STATUS: JHON [place] NUM: [id number] EKATERINA: 09/19/21- [facility] DR: Marilyn Rao MD ENTERED: 09/19/21 [facility] DR: SUSANA TYPE: Surgical DEPT: S ORDERED: [...] slide with H and E stain material [place]. The microscopic findings support the above diagnosis. CPT Codes 81468 -- -- Specimen: [id number] Received: 09/19/21 Status: JHON Turn[place] Num: [id number] Spec Type: Surgical Subm Dr: Marilyn Rao MD Tissues: A Skin-Other than Cyst, tag, debridement or plastic repair (LT INDEX FINGER) Procedures: HE Stain, Gross/Micro L3 -- Patient: Sukh Cisneros [id number] (Continued) -- Signed (signatu re on file) Lilli Sheehan MD 09/23/[address] [facility] COVID-19 FRon 09-17-2021 SARS-CoV-2 (COVID-19) RNA SHA+probe Ql (Unsp spec) Negative Normal Negative [facility] Comment on above: Order Comment: Healt hcare Worker?: N Result Comment: Testing for SARS-CoV-2 by RT-PCR This test was developed and its performance characteristics determined by [employer] ([employer]) and validated at the [facility]. This test has not been FDA cleared [...] is terminated or revoked sooner. PERFORMED BY: [place] [address] PATHOLOGIST ZINC MINER JENNY ALEMAN M.D. Performed By: #### C OVID 19 [facility] #### [address] XR hand LT min 3V*on 022 XR hand LT min 3V* [facility] [place] [address] [place] [address] XRay Report Signed Patient: Sukh Cisneros MR#: [id number] : 1980 Acct:[id number] Age/Sex: 41 / M ADM Date: 07/29/21 Loc: [facility] Room: Type: [facility] Attending Dr: Collins Cruz MD Ordering Provider: oCllins Cruz MD Date of Service: 07/29/21 XR/XR [...] Dictation Location: RADIO-PC-11 Transcribed By: [facility] 07/29/21 131 Dictated By: Calli Dixon MD 07/29/21 131 Signed By: 07/29/21 131 Normal [facility] COVID[facility]19 [facility] SARS-CoV-2 (COVID-19) RNA SHA+probe Ql (Unsp spec) Negative Normal Negative [facility] Comment on above: Order Comment: Healt hcare Worker?: N Result Comment: Testing for SARS-CoV-2 by RT-PCR This test was developed and its performance characteristics determined by [employer] ([employer]) and validated at the [facility]. This test has not been FDA cleared [...] is terminated or revoked sooner. PERFORMED BY: [facility] [address] [place] [address] PATHOLOGIST ZINC MINER JENNY ALEMAN M.D. Performed By: #### C OVID 19 [facility] #### [facility] [address] [id number] [facility] Consenton 11-01-2019 Consent [id number]..[id number] #1.00CD:127 [facility] Registrationon 11-01-2019 Registration [id number]..2019 [id number] #1.00CD:127 [facility] Vital Signs Date Time Vital Sign Value Performing Clinician Facility 06-09-2024 09:40-0400 Body height 177.8 cm [facility] 06-09-2024 09:40-0400 Body mass index (BMI) [Ratio] 32.8 kg/m2 [facility] 06-09-2024 09:40-0400 Body temperature 97.8 [degF[facility] 06-09-2024 09:40-0400 Body weight 103.87 kg [facility] 06-09-2024 09:40-0400 Diastolic blood pressure 90 mm[Hg] [facility] 06-09-2024 09:40-0400 Heart rate 94 /min [facility] 06-09-2024 09:40-0400 SaO2% (BldA) [Mass fraction] 96 % [facility] 06-09-2024 09:40-0400 Systolic blood pressure 128 mm[Hg] [facility] 12-31-2023 10:37-0400 Body height 177.8 cm [facility] 12-31-2023 10:37-0400 Body mass index (BMI) [Ratio] 32 kg/m2 [facility] 12-31-2023 10:37-0400 Body temperature 96.7 [degF] [facility] 12-31-2023 10:37-0400 Body weight 101.15 kg [facility] 12-31-2023 10:37-0400 Diastolic blood pressure 90 mm[Hg] [facility] 12-31-2023 10:37-0400 SaO2% (BldA) [Mass fraction] 98 % [facility] 12-31-2023 10:37-0400 Systolic blood pressure 138 mm[Hg] [facility] 11-19-2023 14:00-0400 Body height 177.8 cm [facility] 11-19-2023 14:00-0400 Body mass index (BMI) [Ratio] 31.8 kg/m2 [facility] 11-19-2023 14:00-0400 Body weight 100.69 kg [facility] 11-19-2023 14:00-0400 Diastolic blood pressure 88 mm[Hg] [facility] 11-19-2023 14:00-0400 Heart rate 97 /min [facility] 11-19-2023 14:00-0400 SaO2% (BldA) [Mass fraction] 97 % [facility] 11-19-2023 14:00-0400 Systolic blood pressure 138 mm[Hg] [facility] 12-16-2022 14:10-0400 Body height 177.8 cm Kylee Lizarraga Other [facility] [employer] Other 12-16-2022 14:10-0400 Body mass index (BMI) [Ratio] 33.4 kg/m2 Kylee Lizarraga Other [facility] Other 12-16-2022 14:10-0400 Body temperature 98.1 [degF] Kylee Lizarraga Other [facility] Other 12-16-2022 14:10-0400 Body weight 105.6 kg Kylee Lizarraga Other [facility] Other 12-16-2022 14:10-0400 Diastolic blood pressure 98 mm[Hg] Kylee Lizarraga Other [facility] Other 12-16-2022 14:10-0400 Respiratory rate 18 /min Kylee Lizarraga Other [facility] Other 09-19-2023 14:10-0400 SaO2% (BldA) [Mass fraction] 97 % Kylee Lizarraga Other [facility] Other 12-16-2022 14:10-0400 Systolic blood pressure 149 mm[Hg] Kylee Lizarraga Other [facility] Other 03-13-2022 18:45-0500 Body height 177.8 cm Hazel Garault Other [facility] Other 03-13-2022 18:45-0500 Body mass index (BMI) [Ratio] 32.71 kg/m2 Hazel Garault Other [facility] Other 03-13-2022 18:45-0500 Body temperature 97.1 [degF] Hazel Lm Other [facility] Other 03-13-2022 18:45-0500 Body weight 103.42 kg Hazel Garault Other [facility] Other 03-13-2022 18:45-0500 Diastolic blood pressure 104 mm[Hg] Hazel Garault Other [facility] Other 03-13-2022 18:45-0500 Respiratory rate 18 /min Hazel Garault Other [facility] Other 03-13-2022 18:45-0500 SaO2% (BldA) [Mass fraction] 98 % Hazel Lm Other [facility] Other 03-13-2022 18:45-0500 Systolic blood pressure 155 mm[Hg] Hazel Lm Other [facility] Other 01-19-2022 05:00-0400 Diastolic blood pressure 98 mm[Hg] [facility] Work Phone: [facility] 01-19-2022 05:00-0400 Heart rate 90 /min [facility] Work Phone: [facility] 01-19-2022 05:00-0400 Respiratory rate 18 /min [facility] Work Phone: [facility] 01-19-2022 05:00-0400 SaO2% (BldA) [Mass fraction] 99 % [facility] Work Phone: [facility] 01-19-2022 05:00-0400 Systolic blood pressure 164 mm[Hg] [facility] Work Phone: [facility] 01-18-2022 22:45-0400 Body height 177.8 cm [facility] Work Phone: [facility] 01-18-2022 22:45-0400 Body weight 95.25 kg [facility] Work Phone: [facility] 01-18-2022 22:44-0400 Body temperature 98.5 [degF] [facility] Work Phone: [facility] 01-12-2022 22:28-0400 Body temperature 97.9 [degF] [facility] Work Phone: [facility] 01-12-2022 22:28-0400 Diastolic blood pressure 97 mm[Hg] [facility] Work Phone: [facility] 01-12-2022 22:28-0400 Heart rate 89 /min [facility] Work Phone: [facility] 01-12-2022 22:28-0400 Respiratory rate 20 /min [facility] Work Phone: [facility] 01-12-2022 22:28-0400 SaO2% (BldA) [Mass fraction] 98 % [facility] Work Phone: [facility] 01-12-2022 22:28-0400 Systolic blood pressure 154 mm[Hg] [facility] Work Phone: [facility] 01-12-2022 22:24-0400 Body height 177.8 cm [facility] Work Phone: [facility] 01-12-2022 22:24-0400 Body weight 104.32 kg [facility] Work Phone: [facility] 09-03-2021 10:00-0400 Body height 177.8 cm Marilyn Caseandrew Other [facility] [employer] Other 09-03-2021 10:00-0400 Body mass index (BMI) [Ratio] 35.01 kg/m2 Marilynmicheal Rao Other [facility] Other 09-03-2021 10:00-0400 Body weight 110.68 kg Marilynmicheal Rao Other [facility] Other 07-29-2021 12:15-0400 Body height 177.8 cm Collins Olexa Other [facility] Other 07-29-2021 12:15-0400 Body mass index (BMI) [Ratio] 35.01 kg/m2 Collins Olexa Other [facility] Other 07-29-2021 12:15-0400 Body weight 110.68 kg Collins Olexa Other [facility] Other 07-09-2021 11:15-0400 Body height 177.8 cm Collins Olexa Other [facility] Other 07-09-2021 11:15-0400 Body mass index (BMI) [Ratio] 35.01 kg/m2 Collins Cruz Other [facility] Other 07-09-2021 11:15-0400 Body weight 110.68 kg Collins Cruz Other [facility] Other Encounters Encounter Date Encounter Type Care Provider Facility Start: 06-09-2024 End: 06-09-2024 ambulatory [facility] Work Phone: Start: 06-09-2024 End: 06-09-2024 Patient encounter procedure [facility] Physician [facility] Work Phone: Start: 12-31-2023 End: 12-31-2023 ambulatory [facility] Work Phone: Start: 12-31-2023 End: 12-31-2023 Patient encounter procedure [facility] Physician [facility] Work Phone: Start: 11-19-2023 Patient encounter status [facility] Start: 11-19-2023 End: 11-19-2023 ambulatory [facility] Work Phone: Start: 11-19-2023 End: 11-19-2023 Encounter for general adult medical examination without abnormal findings [facility] Start: 11-19-2023 End: 11-19-2023 Patient encounter procedure [facility] Start: 12-16-2022 End: 12-16-2022 ambulatory Kylee Lizarraga Other [facility] Other Start: 12-16-2022 Office outpatient vi sit 15 minutes Kylee Lizarraga [facility] Start: 08-27-2022 End: 08-27-[address] DELANEY SYED Facility:[facility] Start: 03-13-2022 End: 03-13-2022 ambulatory Hazel Amato Other [facility] Other Start: 03-13-2022 Office outpatient vi sit 15 minutes Hazel Amato [facility] Start: 02-12-2022 End: 02-12-2022 ambulatory Marilyn Rao Other [facility] Other Start: 02-12-2022 Office outpatient vi sit 15 minutes Marilyn Jalen [facility] Start: 01-31-2022 Patient encounter procedure Marilyn Calvey [facility] Start: 01-31-2022 End: 01-31-2022 ambulatory [facility] Work Phone: [facility] Work Phone: Start: 01-31-2022 End: 01-31-2022 Departed Referred [facility] Work Phone: [facility] [place] Start: 01-29-2022 End: 01-29-[address] ALVINO VANCE . Facility:[facility] Start: 01-24-2022 End: 01-24-[address] MADELEINE COELHO Facility:[facility] Start: 01-23-2022 End: 01-24-[address] DOCTOR HERRMANN Facility:[facility] Start: 01-19-2022 End: 01-19-2022 Emergency department patient visit [facility] Dept Facility:[facility] Start: 01-18-2022 End: 01-19-2022 Emergency department patient visit [facility] Work Phone: [facility] Start: 01-18-2022 End: 01-18-[address] EL SOLIS Facility:[facility] Start: 01-17-2022 End: 01-17-[address] DOCTOR HERRMANN Facility:[facility] Start: 01-14-2022 End: 01-14-2022 ambulatory Marilyn Rao Other [facility] Other Start: 01-14-2022 Office outpatient vi sit 15 minutes Marilyn Calvey [facility] Start: 01-13-2022 End: 01-13-2022 [facility] Start: 01-12-2022 End: 01-13-2022 Emergency department patient visit [facility] Work Phone: [facility] Start: 01-11-2022 End: 01-11-[address] [facility] Facility: Start: 10-04-2021 End: 10-04-2021 ambulatory Marilyn Willoughbyey Other [facility] Other Start: 10-04-2021 Postop follow up vis it related to original px Marilyn Calvey [facility] Start: 09-19-2021 End: 09-19-2021 [facility] Start: 09-17-2021 End: 09-17-2021 ambulatory Marilyn R Caseey Facility:[facility] Start: 09-03-2021 End: 09-03-2021 ambulatory Marilyn Calvey Other [facility] Other Start: 09-03-2021 Office outpatient ne w 45 minutes Marilyn Calvey [facility] Start: 07-29-2021 Office outpatient vi sit 15 minutes Collins Olexa [facility] Start: 07-29-2021 End: 07-29-2021 ambulatory Collins Olexa [facility] Other Start: 07-09-2021 End: 07-09-2021 ambulatory Collins Olexa Other [facility] Other Start: 07-09-2021 Postop follow up vis it related to original px Collins Olexa [facility] Start: 07-01-2021 End: 07-01-2021 ambulatory Collins Olexa Other [facility] Other Start: 07-01-2021 Telephone encounter Collins Cruz [facility] Start: 06-26-2021 End: 06-26-2021 ambulatory Collins Olexa Facility:[facility] Start: 06-25-2021 End: 06-25-2021 ambulatory Collins Olexa Other [facility] Other Start: 06-25-2021 Telephone encounter Collins Doanxa [facility] Start: 06-24-2021 End: 06-24-2021 ambulatory Collins Olexa Facility:[facility] Plan of Treatment Date Care Activity Detail Author Start: 06-09-2024 Patient referral [facility] Work Phone: Start: 01-31-2022 [facility] Aerobic Culture Aerobic Culture [facility] Anaerobic Culture Anaerobic Culture [facility] Comprehensive metabo lic 1999 panel - Serum or Plasma [facility] Comprehensive metabo lic 1999 panel - Serum or Plasma [facility] Microscopic observat ion [Identifier] in Unspecified specimen by Gram stain Gram Stain [facility] Patient Education [facility] Work Phone: Patient referral [facility] Work Phone: [facility] XR Lumbar spine Views [facility] Payers Date Payer Category Payer Self-pay [id number] 1980 Unknown [id number] 2.16.84 [id number] 1980 Unknown [id number] .16.84 [id number] 1980 Unknown [id number] .16.84 0.1.650533.3.579.2.593 1980 Unknown [id number] .16.84 0.1.498054.3.579.2.593 1980 Unknown [id number] 2.16.84 0.1.195933.3.579.2.593 1980 Unknown [id number] 2.16.84 0.1.677038.3.579.2.593 1980 Unknown [id number] 2.16.84 0.1.785444.3.579.2.593 1959 Medicaid [id number] 1959 Unknown [id number] 2.1 [id number] Medicaid [id number] Unknown [id number] 2.16.8 40.1.605697.3.579.2.531 Unknown [id number] 2.16.8 40.1.891687.3.579.2.531 Unknown [id number] 2.16.8 40.1.112574.3.579.2.531 Unknown [id number] 2.16.8 40.1.305733.3.579.2.531 Unknown [id number] 2.16.8 40.1.016512.3.579.2.531 Unknown [id number] 2.16.8 40.1.234662.3.579.2.531 Unknown [id number] 2.16.8 40.1.962181.3.579.2.531 Unknown [id number] 2.16.8 40.1.531643.3.579.2.531 Social History Date Type Detail Facility Unknown if ever smoked [facility] Other Sex Assigned At Sex Assigned At Bir th [facility] Other Start: 01-13-2022 Tobacco smoking status OHIS Smoker (finding) [facility] Start: 1980 Sex Assigned At Male F [facility] Start: 01-19-2022 End: 01-19-2022 Tobacco smoking status NHIS Never smoked tobacco (finding) [facility] Start: 11-19-2023 End: 12-31-2023 Tobacco smoking status OHIS Ex-smoker (finding) [facility] Start: 06-09-2024 Sex Male (finding) [facility] Clinical Notes 06-25-2021 to 12-16-2022 Note Date [...] secondary to dental infection. see above plan [facility] Other 05-31-2023 NotePROCEDURE: XR ELBOW RT MIN [...] Electronically authenticated by: DELANEY SYED Date: 2022-08-27 08:32[facility]12-15-2022 Evaluation note* Encounter Date Diagnosis Assessment [...] should improve within the next 4-7 days. [facility] Other 11-16-2022 Evaluation note* Encounter Date Diagnosis [...] pain, may use norco for severe pain. [facility] Other 11-04-2022 Evaluation note* Encounter Date Diagnosis Assessment Notes Treatment Notes Treatment Clinical Notes Jan, Abscess of hand, left (ICD-10 - L02.512) I and D performed in office, culture obtained. Patient instructed on soaking protocal, given handout. Rx given for [facility] Other 10-18-2022 Evaluation note* Encounter Date Diagnosis [...] Other specified postprocedural states (ICD-10 - Z98.890) [facility] Other 07-08-2022 Evaluation note* Encounter Date Diagnosis Assessment Notes Treatment Notes Treatment Clinical Notes Sep, Ganglion cyst of finger of left hand (ICD-10 - M67.442) Sutures removed today, patient tolerated well. Patient instructed to slowly progress as tolerated. Patient instructed on wound care Sep, Other specified postprocedural states (ICD-10 - Z98.890) Sep, Visit for suture removal (ICD-10 - Z48.02) [facility] Other 06-07-2022 Evaluation note* Encounter Date Diagnosis Assessment Notes Treatment Notes Treatment Clinical Notes Aug, Ganglion cyst of finger of left hand (ICD-10 - M67.442) We will proceed with surgical excision of mass [facility] Other 05-02-2022 Evaluation note* Encounter Date Diagnosis [...] Z98.890) Patient is progressing well from surgery. [facility] Other 04-12-2022 Evaluation note* Encounter Date Diagnosis [...] Visit for suture removal (ICD-10 - Z48.02) [facility] Other 03-29-2022 Evaluation note* Encounter Date Diagnosis Assessment Notes Treatment Notes Treatment Clinical Notes May, Other specified postprocedural states (ICD-10 - Z98.890) [facility] Other [facility] noteNo [facility] [employer] Other [employer] noteNo assessment information available [facility] Work Phone: Evaluation note* Diagnosis Onset Date Resolution Status Anxiety acute Depression acute Screening for deficiency anemia acute Screening for lipid disorders acute Screening for metabolic disorder acute Wellness examination acute [facility] Work Phone: Evaluation note* Diagnosis Onset Date Resolution Status Anxiety acute Depression acute Screening for deficiency anemia acute Screening for lipid disorders acute Screening for metabolic disorder acute Wellness examination acute Anxiety acute [facility] Work Phone: Evaluation note* Diagnosis Onset Date Resolution Status Admit Date Blood in stool acute May 9:35am GERD (gastroesophageal reflu x disease) acute June 09, 2024 9:35am Low back pain acute June 09, 2024 9:35am Right upper quadrant pain acute June 09, 2024 9:35am [facility] Work Phone: History general Narrative - Reported* Type Description Date Medical History Carpal tunnel syndrome of right wrist Medical History Carpal tunnel syndrome of left w rist Medical History Kidney stone Surgical History appendectomy 2011 Hospitalization History see above [facility] N[facility]ative - Reported* Type Description Date Medical History Carpal tunnel syndrome of right wrist Medical History Carpal tunnel syndrome of left w rist Medical History Kidney stone Surgical History appendectomy 2011 Surgical History left carpal tunnel release Hospitalization History see above [facility] Other Hospital Discharge instructions Additional Instructions Follow-up Dr. Amador 1 to 2 days [facility] are [facility] Work Phone: Hospital Discharge instructions Additional Instructions Do not drive or operate heavy machinery while taking narcotics or muscle relaxers Follow-up with your orthopedic surgeon, you can also call the phone number below for neurosurgery Perform the stretches and exercises Return for worsening numbness or complete weakness, headache, or other worsening concerns or [facility] Work Phone: Hospital Discharge instructionsAmbulatory Orders* Referral to Gastroenterology Time Frame: 06/09/24, Location: None Selected * Referral to Pain Management Time Frame: 06/09/24, Location: None Selected [facility] Work Phone: Summary Purpose Family [...] section and content) DATE CREATED AUTHOR 11/02/2019 [facility] DATE CREATED AUTHOR AUTHOR'S ORGANIZ ATION 05/03/2022 [facility] DATE CREATED AUTHOR AUTHOR'S ORGANIZ ATION 09/05/2022 [facility] REASON FOR VISIT (unrecogniz ed section and content) post op scriptRecheck Left W ristpost op questionsOP TRANSPORTATION SERVICES REPRESENTATIVE LT HAND INDEX FING PAIN (HAD CTR IN [place])Left Hand NoduleRecheck Left Index FingerLeft Hand Pain and SwellingLeft Hand PainRecheck Left HandCONGESTION COUGH SORE THROATTOOTH INFECTION, PAIN Care Teams (unrecognized sec tion and content) Team Status: Inactive Member Role Status Dates [facility] Active Meño Coelho MD Emergency Provider Active Team Status: Active Member Role Status Dates [facility] Primary Care Provider Active Team Status: Inactive Member Role Status Dates [facility] Primary Care Provider Active Mino Gallego DO Emergency Provider Active Team Status: Inactive Member Role Status Dates [facility] Primary Care Provider Active Marilyn Rao MD Attending Provider Active Team Status: Active Member Role Status Dates [place] SUPERVISOR [employer] TRANSPORTATION SERVICES REPRESENTATIVE-C Primary Care Provider Active Team Status: Inactive Member Role Status Dates [place] Contreras APRN TRANSPORTATION SERVICES REPRESENTATIVE-C Primary Care Provider, Attending Provider Active Start: November 19, 2023 End: November 19, 2023 Team Status: Inactive Member Role Status Dates La Contreras APRN TRANSPORTATION SERVICES REPRESENTATIVE-C Primary Care Provider, Attending Provider Active Start: December 31, 2023 End: December 31, 2023 Team Status: Inactive Member Role Status Dates La Contreras APRN TRANSPORTATION SERVICES REPRESENTATIVE-C Primary Care Provider, Attending Provider Active Start: [...] BE BASED ON THE PRIMARY CLINICAL RECORDS. [employer] provides no warranty or guarantee of the accuracy or completeness of information in this document.
== END 2024-06-24 07:45 | disposition home or self-care (01) ==
LOC: CT 07:44
PROVIDERS: PCP Nurse Practitioner Family; Visit Provider Nurse Practitioner Family
DX: R10.11 Right upper quadrant pain (principal); K92.1 Melena; K76.0 Fatty (change of) liver, not elsewhere classified; R10.84 Generalized abdominal pain; Z87.19 Personal history of other diseases of the digestive system; K59.00 Constipation, unspecified; N40.0 Benign prostatic hyperplasia without lower urinary tract symptoms
CPT/HCPCS: 74178; Q9967

== ENCOUNTER 2024-07-04 12:05 | Outpatient (OUT) | payer OTHER, SELFPAY ==
--- OUTSIDE RECORDS SUMMARY | 2024-07-04 12:25 | XMS_ITS | CCD ---
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 Primary Care Unavailable Collins Cruz Attending Unavailable Collins Cruz Admitting Unavailable [facility] Primary Care Unavailable Collins Cruz Attending Unavailable Collins Cruz Admitting Unavailable [facility] Primary Care Unavailable [facility] Primary Care Unavailable Marilyn Rao Attending Unavailable Marilyn Rao Admitting Unavailable [facility] Primary Care Unavailable Mino Gallego Attending Unavailable Mino Gallego Admitting Unavailable [facility] Primary Care Unavailable Meño Coelho Attending Unavailable Meño Coelho Admitting Unavailable Collins Cruz Attending Unavailable Nancy, Collins Admitting Unavailable [facility] Primary Care Unavailable Marilyn Rao Attending Unavailable Marilyn Rao Admitting Unavailable [facility] Primary Care Unavailable LmHazel Unavailable RAJIV Faulkner, DR DE OLIVEIRA Admitting Unavailable MISC, DR VIRAMONTES Primary Care Unavailable RAJIV ., DR DE OLIVEIRA Attending Unavailable RAJIV ., DR DE OLIVEIRA Consulting Unavailable KRISHNA, DR MADELEINE King Attending Unavailable KRISHNA, DR MADELEINE King Consulting Unavailable KRISHNA, DR MADELEINE King Admitting Unavailable MISC, DR VIRAMONTES Primary Care Unavailable IRMA, DR EL Cates Consulting Unavailabl e MISC, DR VIRAMONTES Primary Care Unavailable XAVIER [...] Unavailable KUNAL, DR DELANEY King Consulting Unavailable MISC, DR VIRAMONTES Primary Care Unavailable ZION PRITCHETT Admitting Unavailable ZION PRITCHETT Attending Unavailable ZION PRITCHETT Consulting Unavailable Kylee Lizarraga Unavailable LA CONTRERAS Referring Unavailab LA Walters Attending Unavailable Medications Current Medications Medication Drug Class(es) Dates Sig (Normalized) Sig (Original) [id number] 200 actuat albuterol 0.09 mg/actuat metered dose [...] tablet Discontinued 100 MG PO Twice daily 10 September 19, 2021 12:00am November 19, 2023 7:54am escitalopram 20 mg oral tablet (7 sources) Serotonin Reuptake Inhibitor Start: 11-19-2023 End: 06-03-2024 take 1 tablet by mouth once daily Escitalopram Oxalate (Lexapro) 20 mg tablet Active 20 MG PO Daily 90 June 03, 2024 11:16am Lexapro Active ibuprofen [...] EVERY 4-6 HOURS as needed for pain 11 06September 19, 2021 November 19, 2023 7:54am Start: [...] TAB PO Q6H as needed for pain 16 06August 23, 2020 September 03, 2020 11:29pm cyclobenzaprine [...] extended release oral tablet (2 sources) Uncompetitive B-llenml-X-aspa rtate Receptor Antagonist, Sigma-1 Agonist Start: 03-13-2022 take 1 tablet by mouth every twelve hours Mucinex DM 30-600 MG 1 tablet as needed Orally every 12 hrs Feb, Not-Taking docusate sodium 50 mg / sennosides, skilled nursing 8.6 mg oral tablet (6 sources) Start: [...] 10-04-2021 Episodic Other aftercare (1 source) Other residential (current) drug therapy; Translations: [OTH RESIDENTIAL CURRENT DRUG THERAPY] Onset: 01-30-2022 Episodic Other [...] (COVID-19) RNA SHA+probe Ql (Unsp spec) Negative Goomeo Other COVID/FLU RT-PCR Positive Next Jump Other COVID/FLU RT-PCR Negative Next Jump Other Aerobic Cultureon 01-31-2022 Aerobic Culture Light Normal Skin Nayeli 2 Days No Anaerobes Isolated 3 Days Gram Stain Result No Bacteria Seen No White Blood Cells Seen PERFORMED BY: [place] [address] PATHOLOGIST TETRYL BOILING TUB OPERATOR JENNY ALEMAN M.D. Normal [facility] Comment on above: Performed By: #### A ERC #### [place] [address] [place] CULTURE WOUNDon 01-28-2022 CULTURE WOUND Culture [...] S C Oxacillin 2 S C [facility] Comment on above: Performed By: #### W OUNDCX ####[facility] [id number] [address]Dr. Miguel Devries CBC AUTO DIFFon 01-24-2022 BASO # 0.1 103/ul Normal 0.0-0.1 [facility] Comment on above: Performed By: #### C BC #### [facility] [address] [place] [address] Dr. Miguel Devries Basophils/100 WBC (Bld) 0.4 % Normal 0.2-2.0 [facility] Comment on above: Performed By: #### C BC #### [facility] [address] [place] [address] Dr. Miguel Devries EO # 0.4 103/ul Normal 0.0-0.7 [facility] Comment on above: Performed By: #### C BC #### [facility] [address] [address] [address] Miguel Devries Eosinophils/100 WBC (Bld) 2.8 % Normal 0.9-7.0 [facility] Comment on above: Performed By: #### C BC #### [facility] [address] [place] [address] Dr. Miguel Devries Erythrocyte distribution width (RBC) [Ratio] 12.3 % Normal 11.0-15.0 [facility] Comment on above: Performed By: #### C BC #### [facility] [address] [place] [address] Dr. Miguel Devries Hematocrit (Bld) [Volume fraction] 40.9 % Critically low 42.0-54.0 [facility] Comment on above: Performed By: #### C BC #### [facility] [address] [place] [address] Dr. Miguel Devries Hemoglobin (Bld) [Mass/Vol] 14.7 g/dL Normal 14.0-18.0 [facility] Comment on above: Performed By: #### C BC #### [facility] [address] [place] [address] Dr. Miguel Devries IG # 0.06 10e3/ul Critically high 0.00-0.03 [facility] Comment on above: Performed By: #### C BC #### [facility] [address] [place] [address] Dr. Miguel Devries IG % 0.4 % Normal 0.0-0.5 [facility] Comment on above: Performed By: #### C BC #### [facility] [address] [place] [address] Dr. Miguel Devries LYMPH # 2.6 103/ul Normal 1.2-3.8 [facility] Comment on above: Performed By: #### C BC #### [facility] [address] [place] [address] Dr. Miguel Devries Lymphocytes/100 WBC (Bld) 17.6 % Critically low 20.5-60.0 [facility] Comment on above: Performed By: #### C BC #### [facility] [address] [place] [address] Dr. Miguel Devries MANUAL DIFF REQ NO Normal [facility] Comment on above: Performed By: #### C BC #### [facility] [address] [place] [address] Dr. Miguel Devries MCH (RBC) [Entitic mass] 32.5 pg Normal 25.9-34.0 [facility] Comment on above: Performed By: #### C BC #### [facility] [address] [place] [address] Dr. Miguel Devries MCHC (RBC) [Mass/Vol] 35.9 g/dL Critically high 29.9-35.2 [facility] Comment on above: Performed By: #### C BC #### [facility] [address] [address] [address] Miguel Devries MCV (RBC) [Entitic vol] 90.5 fL Normal 80.0-94.0 [facility] Comment on above: Performed By: #### C BC #### [facility] [address] [place] [address] Dr. Miguel Devries MONO # 1.1 103/ul Critically high 0.3-0.8 [facility] Comment on above: Performed By: #### C BC #### [facility] [address] [place] [address] Dr. Miguel Devries Monocytes/100 WBC (Bld) 7.2 % Normal 1.7-12.0 [facility] Comment on above: Performed By: #### C BC #### [facility] [address] [place] [address] Dr. Miguel Devries NEUT # 10.6 103/ul Critically high 1.4-6.5 [facility] Comment on above: Performed By: #### C BC #### [facility] [address] [place] [address] Dr. Miguel Devries Neutrophils/100 WBC (Bld) 71.6 % Normal 43.0-75.0 [facility] Comment on above: Performed By: #### C BC #### [facility] [address] [place] [address] Dr. Miguel Devries Platelet mean volume (Bld) [Entitic vol] 9.7 fL Normal 9.5-13.5 [facility] Comment on above: Performed By: #### C BC #### [facility] [address] [place] [address] Dr. Miguel Devries PLT 266 103/ul Normal 150-450 [facility] Comment on above: Performed By: #### C BC #### [facility] [address] [place] [address] Dr. Miguel Devries RBC 4.52 106/ul Critically low 4.70-6.10 [facility] Comment on above: Performed By: #### C BC #### [facility] [address] [address] [address] Miguel Devries WBC 14.7 103/ul Critically high 4.0-11.0 [facility] Comment on above: Performed By: #### C BC #### [facility] [address] [address] [address] Miguel Devries CULTURE BLOODon 01-24-2022 Microscopic examination of blood, culture Culture Observations: NO GROWTH AT 5 DAYS. [facility] Comment on above: Performed By: #### B LDCX2 ####[facility] [id number] [address]Dr. Miguel Devries Microscopic examination of blood, culture Culture Observations: NO GROWTH AT 5 DAYS. [facility] Comment on above: Performed By: #### B LDCX1 ####[facility] [address] [address]Dr. Miguel Devries PROF 14(COMP METB)on 022 Albumin [Mass/Vol] 3.4 g/dL Normal 3.4-5.0 [facility] Comment on above: Performed By: #### C MP #### [facility] [address] [place] [address] Dr. Miguel Devries Albumin/Globulin [Mass ratio] 1.1 {ratio} [facility] Comment on above: Performed By: #### C MP #### [facility] [address] [place] [address] Dr. Miguel Devries ALP [Catalytic activity/Vol] 66 U/L Normal 46-116 [facility] Comment on above: Performed By: #### C MP #### [facility] [address] [place] [address] Dr. Miguel Devries ALT [Catalytic activity/Vol] 28 U/L Normal 16-63 [facility] Comment on above: Performed By: #### C MP #### [facility] [address] [place] [address] Dr. Miguel Devries Anion gap [Moles/Vol] 9.8 mmol/L [facility] Comment on above: Performed By: #### C MP #### [facility] [address] [place] [address] Dr. Miguel Devries AST [Catalytic activity/Vol] 16 U/L Normal 15-37 [facility] Comment on above: Performed By: #### C MP #### [facility] [address] [address] [address] Miguel Devries Bilirubin [Mass/Vol] 0.2 mg/dL Normal 0.2-1.0 [facility] Comment on above: Performed By: #### C MP #### [facility] [address] [place] [address] Dr. Miguel Devries Calcium [Mass/Vol] 8.0 mg/dL Critically low 8.5-10.1 [facility] Comment on above: Performed By: #### C MP #### [facility] [address] [place] [address] Dr. Miguel Devries Chloride [Moles/Vol] 106 mmol/L Normal 98-107 [facility] Comment on above: Performed By: #### C MP #### [facility] [address] [place] [address] Dr. Miguel Devries CO2 [Moles/Vol] 27.6 mmol/L Normal 21.0-32.0 [facility] Comment on above: Performed By: #### C MP #### [facility] [address] [address] [address] Miguel Devries Creatinine [Mass/Vol] 0.79 mg/dL Normal 0.70-1.30 [facility] Comment on above: Performed By: #### C MP #### [facility] [address] [place] [address] Dr. Miguel Devries EGFR-AF WALLISIAN >60 Normal >=60 [facility] Comment on above: Performed By: #### C MP #### [facility] [address] [address] [address] Miguel Devries EGFR-NON AF WALLISIAN >60 Normal >=60 [facility] Comment on above: Performed By: #### C MP #### [facility] [address] [address] [address] Miguel Devries Globulin (S) [Mass/Vol] 3.0 g/dL Normal [facility] Comment on above: Performed By: #### C MP #### [facility] [address] [address] [address] Miguel Devries Glucose [Mass/Vol] 113 mg/dL Critically high 74-106 [facility] Comment on above: Performed By: #### C MP #### [facility] [address] [address] [address] Miguel Devries Potassium [Moles/Vol] 3.4 mmol/L Critically low 3.5-5.1 [facility] Comment on above: Performed By: #### C MP #### [facility] [address] [address] [address] Miguel Devries Protein [Mass/Vol] 6.4 g/dL Normal 6.4-8.2 [facility] Comment on above: Performed By: #### C MP #### [facility] [address] [address] [address] Miguel Devries Sodium [Moles/Vol] 140 mmol/L Normal 136-145 [facility] Comment on above: Performed By: #### C MP #### [facility] [address] [address] [address] Miguel Devries Urea nitrogen [Mass/Vol] 14.0 mg/dL Normal 7.0-18.0 [facility] Comment on above: Performed By: #### C MP #### [facility] [address] [address] [address] Miguel Devries Urea nitrogen/Creatinine [Mass ratio] 17.7 mg/mg [facility] Comment on above: Performed By: #### C MP #### [facility] [address] [address] [address] Miguel Devries XR CSPINE 2_3 VIEWSon [...] by: DELANEY SYED Date: 2022-01-23 18:16 [facility] ECG 12 lead ECGon 01-19-2022 ECG 12 lead ECG [facility] [place] [address] [place] [address] Electrocardiograph Report Signed Patient: Sukh Cisneros MR#: [id number] : 1980 Acct:[id number] Age/Sex: 41 / M ADM Date: 01/18/22 Loc: ER Room: Type: [facility] ER Attending Dr: Ordering Provider: Mino [...] longer present Confirmed by Mino Gallego DO ([id number]) on 01/19/2022 4:26:01 AM Referred By: Electronically Signed By:Mino Gallego DO Transcribed By: MUS Signed By Mino Gallego DO 01/19 0426 Normal [facility] CT CSPINE WO CONon CT CSPINE WO CON EXAMINATION: CT CSPINE [...] fracture or malalignment. Electronically authenticated by: REINA REID Date: 2022-01-18 11:02 [facility] Basic Metabolic Panelon 12-28 Anion gap [Moles/Vol] 12.0 mmol/L Normal 6.0-15.0 [facility] Comment on above: Performed By: #### C BC, BMP #### [facility] [address] [place] [address] [place] Calcium [Mass/Vol] 8.7 mg/dL Normal 8.2-10.2 [facility] Comment on above: Performed By: #### C BC, BMP #### [facility] [address] [place] [address] [place] Chloride [Moles/Vol] 105 mmol/L Normal 95-114 [facility] Comment on above: Performed By: #### C BC, BMP #### [facility] [address] [place] [address] [place] CO2 [Moles/Vol] 22.9 mmol/L Normal 22.0-30.0 [facility] Comment on above: Performed By: #### C BC, BMP #### [facility] [address] [place] [id number] [place] Creatinine [Mass/Vol] 0.73 mg/dL Normal 0.64-1.27 [facility] Comment on above: Performed By: #### C BC, BMP #### [facility] [address] [place] [address] [place] Creatinine Clr Calc Pharmacy 161.10 Normal [facility] Comment on above: Result Comment: PERF ORMED BY: [facility] [address] PATHOLOGIST TETRYL BOILING TUB OPERATOR JENNY ALEMAN M.D. Performed By: #### C BC, BMP #### [address] Estimated GFR ( Sheela > 60 Normal [facility] Comment on above: Result Comment: GFR estimated reference range: According to KDOQI guidelines, <60 ml/min/1.73m2 is sufficient to diagnose a patient with chronic kidney disease. Performed By: #### C BC, BMP #### [address] Estimated GFR (Non- Am > 60 Normal [facility] Comment on above: Performed By: #### C BC, BMP #### [address] Glucose [Mass/Vol] 91 mg/dL Normal 70-100 [facility] Comment on above: Result Comment: [place] Glucose Reference Range is dependent on time and content of last meal. Glucose of more than 200 mg/dL in a nonstressed, ambulatory subject supports the diagnosis of Diabetes Mellitus. ADA recommended reference range Performed By: #### C BC, BMP #### [address] Potassium [Moles/Vol] 3.9 mmol/L Normal 3.5-5.1 [facility] Comment on above: Performed By: #### C BC, BMP #### [address] Sodium [Moles/Vol] 136 mmol/L Normal 136-146 [facility] Comment on above: Performed By: #### C BC, BMP #### [address] Urea nitrogen [Mass/Vol] 7 mg/dL Low 9-23 [facility] Comment on above: Performed By: #### C BC, BMP #### [address] Basophils Auto (Bld) [#/Vol] Ordered By: Meño Coelho on 01-13-2022 Basophils (Bld) [#/Vol] 0.1 10*3/uL 0.0-0.2 [facility] Basophils/100 WBC Auto (Bld) Ordered By: Meño Coelho on 01-13-2022 Basophils/100 WBC (Bld) 0.8 % . [facility] Complete Blood Count Auto Di ffon 01-13-2022 Basophils (Bld) [#/Vol] 0.1 10*3/uL Normal 0.0-0.2 [facility] Comment on above: Result Comment: PERF ORMED BY: [place] [address] PATHOLOGIST TETRYL BOILING TUB OPERATOR JENNY ALEMAN M.D. Performed By: #### C BC, BMP #### [address] Basophils/100 WBC (Bld) 0.8 % Normal . [facility] Comment on above: Performed By: #### C BC, BMP #### [address] Eosinophils (Bld) [#/Vol] 0.4 10*3/uL Normal 0.0-0.45 [facility] Comment on above: Performed By: #### C BC, BMP #### [address] Eosinophils/100 WBC (Bld) 6.2 % Normal . [facility] Comment on above: Performed By: #### C BC, BMP #### [address] Erythrocyte distribution width (RBC) [Ratio] 12.7 % Normal 12.0-14.8 [facility] Comment on above: Performed By: #### C BC, BMP #### [address] Hematocrit (Bld) [Volume fraction] 44.2 % Normal 38.8-50.0 [facility] Comment on above: Performed By: #### C BC, BMP #### [address] Hemoglobin (Bld) [Mass/Vol] 15.1 g/dL Normal 13.0-17.0 [facility] Comment on above: Performed By: #### C BC, BMP #### [address] Lymphocytes (Bld) [#/Vol] 2.6 10*3/uL Normal 1.00-4.8 [facility] Comment on above: Performed By: #### C BC, BMP #### [address] Lymphocytes/100 WBC (Bld) 38.5 % Normal . [facility] Comment on above: Performed By: #### C ROB, BMP #### [address] MCH (RBC) [Entitic mass] 32.1 pg Normal 27.5-35.2 [facility] Comment on above: Performed By: #### C ROB, BMP #### [address] MCV (RBC) [Entitic vol] 94.1 fL Normal 83.5-[address] [facility] Comment on above: Performed By: #### C ROB, BMP #### [address] Mean Corpuscular HGB Conc 34.2 g/dL Normal 32.5-35.6 [facility] Comment on above: Performed By: #### C BC, BMP #### [address] Monocytes (Bld) [#/Vol] 0.5 10*3/uL Normal 0.0-0.8 [facility] Comment on above: Performed By: #### C BC, BMP #### [address] Monocytes/100 WBC (Bld) 7.1 % Normal . [facility] Comment on above: Performed By: #### C BC, BMP #### [address] Neutrophils (Bld) [#/Vol] 3.2 10*3/uL Normal 1.8-7.7 [facility] Comment on above: Performed By: #### C ROB, BMP #### [facility] [address] Neutrophils/100 WBC (Bld) 47.4 % Normal . [facility] Comment on above: Performed By: #### C BC, BMP #### [facility] [address] [place] [address] [place] Nucleated RBC/100 WBC (Bld) [Ratio] 0.1 % Normal 0-0.5 [facility] Comment on above: Performed By: #### C ROB, BMP #### [facility] [address] Platelet mean volume (Bld) [Entitic vol] 8.9 fL Normal 6.6-10.1 [facility] Comment on above: Performed By: #### C ROB, BMP #### [facility] [address] [place] [address] [place] Platelets (Bld) [#/Vol] 209 10*3/uL Normal 150-450 [facility] Comment on above: Performed By: #### C ROB, BMP #### [facility] [address] [place] [address] [place] RBC (Bld) [#/Vol] 4.70 10*6/uL Normal 3.90-5.60 [facility] Comment on above: Performed By: #### C BC, BMP #### [facility] [address] [place] [address] [place] WBC (Bld) [#/Vol] 6.8 10*3/uL Normal 4.5-11.0 [facility] Comment on above: Performed By: #### C BC, BMP #### [facility] [address] [place] [address] [place] Creatinine and Glomerular fi ltration rate.predicted panel (S/P/Bld)Ordered By: Meño Coelho on 01-13-2022 Creatinine [Mass/Vol] 0.73 mg/dL 0.64-1.27 [facility] Eosinophils Auto (Bld) [#/Vo l]Ordered By: Meño Coelho on 01-13-2022 Eosinophils (Bld) [#/Vol] 0.4 10*3/uL 0.0-0.45 [facility] Eosinophils/100 WBC Auto (Bl d)Ordered By: Meño Coelho on 01-13-2022 Eosinophils/100 WBC (Bld) 6.2 % . [facility] Erythrocyte distribution wid th Auto (RBC) [Ratio]Ordered By: Meño Coelho on 01-13-2022 Erythrocyte distribution width (RBC) [Ratio] 12.7 % 12.0-14.8 [facility] Estimated glomerular filtrat ion rate (GFR) non- AmericanOrdered By: Meño Coelho on 01-13-2022 GFR/1.73 sq M.predicted among non-blacks MDRD (S/P/Bld) [Vol rate/Area] > 60 mL/Min [facility] Hematocrit Auto (Bld) [Volum e fraction]Ordered By: Meño Coelho on 01-13-2022 Hematocrit (Bld) [Volume fraction] 44.2 % 38.8-50.0 [facility] Hemoglobin [Mass/volume] in BloodOrdered By: Meño Coelho on 01-13-2022 Hemoglobin (Bld) [Mass/Vol] 15.1 g/dL 13.0-17.0 [facility] - Hematology and Cell countsOrdered By: Meño Coelho on 01-13-2022 Nucleated RBC/100 WBC (Bld) [Ratio] 0.1 % 0-0.5 [facility] Leukocytes [#/volume] in Blo od by Automated countOrdered By: Meño Coelho on 01-13-2022 WBC (Bld) [#/Vol] 6.8 10*3/uL 4.5-11.0 [facility] Lymphocytes Auto (Bld) [#/Vo l]Ordered By: Meño Coelho on 01-13-2022 Lymphocytes (Bld) [#/Vol] 2.6 10*3/uL 1.00-4.8 [facility] Lymphocytes/100 WBC Auto (Bl d)Ordered By: Meño Coelho on 01-13-2022 Lymphocytes/100 WBC (Bld) 38.5 % . [facility] MCH Auto (RBC) [Entitic mass ]Ordered By: Meño Coelho on 01-13-2022 MCH (RBC) [Entitic mass] 32.1 pg 27.5-35.2 [facility] MCHC Auto (RBC) [Mass/Vol]Or dered By: Meño Coelho on 01-13-2022 MCHC (RBC) [Mass/Vol] 34.2 g/dL 32.5-35.6 [facility] MCV Auto (RBC) [Entitic vol] Ordered By: Meño Coelho on 01-13-2022 MCV (RBC) [Entitic vol] 94.1 fL 83.5-[address] [facility] Monocytes Auto (Bld) [#/Vol] Ordered By: Meño Coelho on 01-13-2022 Monocytes (Bld) [#/Vol] 0.5 10*3/uL 0.0-0.8 [facility] Monocytes/100 WBC Auto (Bld) Ordered By: Meño Coelho on 01-13-2022 Monocytes/100 WBC (Bld) 7.1 % . [facility] Neutrophils Auto (Bld) [#/Vo l]Ordered By: Meño Coelho on 01-13-2022 Neutrophils (Bld) [#/Vol] 3.2 10*3/uL 1.8-7.7 [facility] Neutrophils/100 WBC Auto (Bl d)Ordered By: Meño Coelho on 01-13-2022 Neutrophils/100 WBC (Bld) 47.4 % . [facility] No Panel InformationOrdered By: Meño Coelho on 01-13-2022 Estimated GFR () > 60 mL/Min [facility] Comment on above: GFR estimated refere nce range: According to KDOQI guidelines, <60 ml/min/1.73m2 is sufficient to diagnose a patient with chronic kidney disease. Pharmacy Creatinine Clearance (Chem 161.10 [facility] Platelet mean volume Auto (B ld) [Entitic vol]Ordered By: Meño Coelho on 01-13-2022 Platelet mean volume (Bld) [Entitic vol] 8.9 fL 6.6-10.1 [facility] Platelets Auto (Bld) [#/Vol] Ordered By: Meño Coelho on 01-13-2022 Platelets (Bld) [#/Vol] 209 10*3/uL 150-450 [facility] RBC Auto (Bld) [#/Vol]Ordere d By: Meño Coelho on 01-13-2022 RBC (Bld) [#/Vol] 4.70 10*6/uL 3.90-5.60 [facility] Serum or plasma anion gap de terminationOrdered By: Meño Coelho on 01-13-2022 Anion gap [Moles/Vol] 12.0 mmol/L 6.0-15.0 [facility] Serum or plasma calcium roseline urement (mass/volume)Ordered By: Meño Coelho on 01-13-2022 Calcium [Mass/Vol] 8.7 mg/dL 8.2-10.2 [facility] Serum or plasma chloride mary jo surement (moles/volume)Ordered By: Meño Coelho on 01-13-2022 Chloride [Moles/Vol] 105 mmol/L 95-114 [facility] Serum or plasma glucose roseline urement (mass/volume)Ordered By: Meño Coelho on 01-13-2022 Glucose [Mass/Vol] 91 mg/dL 70-100 [facility] Comment on above: ADA recommended refe rence rangeRandom Glucose Reference Range is dependent on time and content of last meal. Glucose of more than 200 mg/dL in a nonstressed, ambulatory subject supports the diagnosis of Diabetes Mellitus. Serum or plasma potassium me asurement (moles/volume)Ordered By: Meño Coelho on 01-13-2022 Potassium [Moles/Vol] 3.9 mmol/L 3.5-5.1 [facility] Serum or plasma sodium measu rement (moles/volume)Ordered By: Meño Coelho on 01-13-2022 Sodium [Moles/Vol] 136 mmol/L 136-146 [facility] Serum or plasma total carbon dioxide measurement (moles/volume)Ordered By: Meño Coelho on 01-13-2022 CO2 [Moles/Vol] 22.9 mmol/L 22.0-30.0 [facility] Serum or plasma urea nitroge n measurement (mass/volume)Ordered By: Meño Coelho on 01-13-2022 Urea nitrogen [Mass/Vol] 7 mg/dL 9-23 [facility] CBC AUTO DIFFon 01-11-2022 BASO # 0.0 103/ul Normal 0.0-0.1 [facility] Comment on above: Performed By: #### C BC #### [facility] [address] [place] [address] Dr. Miguel Devries Basophils/100 WBC (Bld) 0.4 % Normal 0.2-2.0 [facility] Comment on above: Performed By: #### C BC #### [facility] [address] [place] [address] Dr. Miguel Devries EO # 0.5 103/ul Normal 0.0-0.7 [facility] Comment on above: Performed By: #### C BC #### [facility] [address] [place] [address] Dr. Miguel Devries Eosinophils/100 WBC (Bld) 5.0 % Normal 0.9-7.0 [facility] Comment on above: Performed By: #### C BC #### [facility] [address] [place] [address] Dr. Miguel Devries Erythrocyte distribution width (RBC) [Ratio] 11.9 % Normal 11.0-15.0 [facility] Comment on above: Performed By: #### C BC #### [facility] [address] [place] [address] Dr. Miguel Devries Hematocrit (Bld) [Volume fraction] 44.8 % Normal 42.0-54.0 [facility] Comment on above: Performed By: #### C BC #### [facility] [address] [place] [address] Dr. Miguel Devries Hemoglobin (Bld) [Mass/Vol] 15.7 g/dL Normal 14.0-18.0 [facility] Comment on above: Performed By: #### C BC #### [facility] [address] [place] [address] Dr. Miguel Devries IG # 0.03 10e3/ul Normal 0.00-0.03 [facility] Comment on above: Performed By: #### C BC #### [facility] [address] [place] [address] Dr. Miguel Devries IG % 0.3 % Normal 0.0-0.5 [facility] Comment on above: Performed By: #### C BC #### [facility] [address] [place] [address] Dr. Miguel Devries LYMPH # 2.5 103/ul Normal 1.2-3.8 [facility] Comment on above: Performed By: #### C BC #### [facility] [address] [place] [address] Dr. Miguel Devries Lymphocytes/100 WBC (Bld) 25.6 % Normal 20.5-60.0 [facility] Comment on above: Performed By: #### C BC #### [facility] [address] [place] [address] Dr. Miguel Devries MANUAL DIFF REQ NO Normal [facility] Comment on above: Performed By: #### C BC #### [facility] [address] [place] [address] Dr. Miguel Devries MCH (RBC) [Entitic mass] 32.2 pg Normal 25.9-34.0 [facility] Comment on above: Performed By: #### C BC #### [facility] [address] [place] [address] Dr. Miguel Devries MCHC (RBC) [Mass/Vol] 35.0 g/dL Normal 29.9-35.2 [facility] Comment on above: Performed By: #### C BC #### [facility] [address] [place] [address] Dr. Miguel Devries MCV (RBC) [Entitic vol] 92.0 fL Normal 80.0-94.0 [facility] Comment on above: Performed By: #### C BC #### [facility] [address] [place] [address] Dr. Miguel Devries MONO # 0.7 103/ul Normal 0.3-0.8 [facility] Comment on above: Performed By: #### C BC #### [facility] [address] [place] [address] Dr. Miguel Devries Monocytes/100 WBC (Bld) 7.2 % Normal 1.7-12.0 [facility] Comment on above: Performed By: #### C BC #### [facility] [address] [place] [address] Dr. Miguel Devries NEUT # 5.9 103/ul Normal 1.4-6.5 [facility] Comment on above: Performed By: #### C BC #### [facility] [address] [place] [address] Dr. Miguel Devries Neutrophils/100 WBC (Bld) 61.5 % Normal 43.0-75.0 [facility] Comment on above: Performed By: #### C BC #### [facility] [address] [place] [address] Dr. Miguel Devries Platelet mean volume (Bld) [Entitic vol] 10.0 fL Normal 9.5-13.5 [facility] Comment on above: Performed By: #### C BC #### [facility] [address] [place] [address] Dr. Miguel Devries PLT 252 103/ul Normal 150-450 [facility] Comment on above: Performed By: #### C BC #### [facility] [address] [place] [address] Dr. Miguel Devries RBC 4.87 106/ul Normal 4.70-6.10 [facility] Comment on above: Performed By: #### C BC #### [facility] [address] [place] [address] Dr. Miguel Devries WBC 9.6 103/ul Normal 4.0-11.0 [facility] Comment on above: Performed By: #### C BC #### [facility] [address] [place] [address] Dr. Miguel Devries CRPon 01-11-2022 CRP [Mass/Vol] mg/L Normal <=1.0 [facility] Comment on above: Performed By: #### C RP, BMP #### [facility] [address] [place] [address] HAND LT WO CONon 01-12-20 CT HAND LT WO CON EXAMINATION: CT [...] by: ARMAND JUARES Date: 2022-01-11 18:50 Normal [facility] CULTURE BLOODon 01-11-2022 Microscopic examination of blood, culture Culture Observations: No growth at 5 days. Normal [facility] Comment on above: Performed By: #### B LDCX2 #### [facility] [address] [place] [address] Dr. Miguel Devries Microscopic examination of blood, culture Culture Observations: No growth at 5 days. Normal [facility] Comment on above: Performed By: #### B LDCX1 #### [facility] [address] [address] [address] Miguel Devries LACTATE/LACTIC ACIDon 2021 Lactate [Moles/Vol] 1.0 mmol/L Normal 0.4-1.9 [facility] Comment on above: Performed By: #### L ACT ####[facility] [address] [place] [address]Dr. Miguel Devries PROF CHEM 8 (BAS METB)on Anion gap [Moles/Vol] 10.3 mmol/L Normal [facility] Comment on above: Performed By: #### C RP, BMP #### [facility] [address] [address] [address] Miguel Devries Calcium [Mass/Vol] 9.1 mg/dL Normal 8.5-10.1 [facility] Comment on above: Performed By: #### C RP, BMP #### [facility] [address] [address] [address] Miguel Devries Chloride [Moles/Vol] 104 mmol/L Normal 98-107 [facility] Comment on above: Performed By: #### C RP, BMP #### [facility] [address] [address] [address] Miguel Devries CO2 [Moles/Vol] 26.5 mmol/L Normal 21.0-32.0 [facility] Comment on above: Performed By: #### C RP, BMP #### [facility] [address] [address] [address] Miguel Devries Creatinine [Mass/Vol] 0.81 mg/dL Normal 0.70-1.30 [facility] Comment on above: Performed By: #### C RP, BMP #### [facility] [address] [address] [address] Miguel Devries EGFR-AF WALLISIAN >60 Normal >=60 [facility] Comment on above: Performed By: #### C RP, BMP #### [facility] [address] [place] [address] Dr. Miguel Devries EGFR-NON AF WALLISIAN >60 Normal >=60 [facility] Comment on above: Performed By: #### C RP, BMP #### [facility] [address] [address] [address] Miguel Devries Glucose [Mass/Vol] 96 mg/dL Normal 74-106 [facility] Comment on above: Performed By: #### C RP, BMP #### [facility] [address] [address] [address] Miguel Devries Potassium [Moles/Vol] 3.8 mmol/L Normal 3.5-5.1 [facility] Comment on above: Performed By: #### C RP, BMP #### [facility] [address] [address] [address] Miguel Devries Sodium [Moles/Vol] 137 mmol/L Normal 136-145 [facility] Comment on above: Performed By: #### C RP, BMP #### [facility] [address] [address] [address] Miguel Devries Urea nitrogen [Mass/Vol] 10.0 mg/dL Normal 7.0-18.0 [facility] Comment on above: Performed By: #### C RP, BMP #### [facility] [address] [address] [address] Miguel Devries Urea nitrogen/Creatinine [Mass ratio] 12.3 mg/mg Normal [facility] Comment on above: Performed By: #### C RP, BMP #### [facility] [address] [address] [address] Miguel Devries SED RATE [facility] 2021 SED RATE 13 mm/hr Normal <=15 [facility] Comment on above: Performed By: #### S EDR #### [facility] [address] [address] [address] Miguel Devries Drug Screen,Urineon 09-20-19 Amphetamine Screen,Urine Positive High Negative [facility] Comment on above: Performed By: #### U RDS #### [address] Barbiturate Screen,Urine Negative Normal Negative [facility] Comment on above: Performed By: #### U RDS #### [address] Benzodiazepines Screen,Urine Negative Normal Negative [facility] Comment on above: Performed By: #### U RDS #### [address] Cannabinoid Screen,Urine Positive High Negative [facility] Comment on above: Result Comment: Thes e are unconfirmed results and should not be used for legal purposes. Drug Cut-Off Concentration: AMPH 1000 ng/mL SHERRIE 200 ng/mL MONICA 200 ng/mL COCM 300 ng/mL OP 300 ng/mL PCP 25 ng/mL THC 20 ng/mL PERFORMED BY: [place] [address] PATHOLOGIST [employer]RY[employer]ILING TUB OPERATOR JENNY ALEMAN M.D. Performed By: #### U RDS #### [address] Cocaine Screen,Urine Negative Normal Negative [facility] Comment on above: Performed By: #### U RDS #### [address] Opiate Screen,Urine Negative Normal Negative [facility] Comment on above: Performed By: #### U RDS #### [address] Phencyclidine Screen,Urine Negative Normal Negative [facility] Comment on above: Performed By: #### U RDS #### [address] 09-19-2021 L -- Specimen: [id number] Received: 09/19/21 Status: JHON [place] Num: [id number] Spec Type: Surgical Subm Dr: Marilyn Rao MD Tissues: A Skin-Other than Cyst, tag, debridement or plastic repair (LT INDEX FINGER) Procedures: HE Stain, Gross/Micro L3 -- Patient Age/Sex Location Account Attending Physician -- Sukh Cisneros/[place] [id number] Marilyn aRo MD -- SPEC NUM: [id number] RECD: 09/19/21 STATUS: JHON ERISUnruly NUM: [id number] EKATERINA: 09/19/21- SUBM DR: Marilyn Rao MD ENTERED: 09/19/21 [facility]: SUSANA TYPE: Surgical DEPT: S ORDERED: [...] slide with H and E stain material [place]. The microscopic findings support the above diagnosis. CPT Codes 63971 -- -- Specimen: [id number] Received: 09/19/21 Status: JHON [place] Num: [id number] Spec Type: Surgical Subm Dr: Marilyn Rao MD Tissues: A Skin-Other than Cyst, tag, debridement or plastic repair (LT INDEX FINGER) Procedures: HE Stain, Gross/Micro L3 -- Patient: OsirismatSukh [id number] (Continued) -- Signed (signatu re on file) Lilli Sheehan MD 09/23/21 1859 Normal [facility] SARS-CoV-2 (COVID-19) RNA SHA+probe Ql (Unsp spec) Negative Normal Negative [facility] Comment on above: Order Comment: Healt hcare Worker?: N Result Comment: Testing for SARS-CoV-2 by RT-PCR This test was developed and its performance characteristics determined by [employer] and validated at the [facility]. This test has not been FDA cleared [...] is terminated or revoked sooner. PERFORMED BY: [place] [address] PATHOLOGIST TETRYL BOILING TUB OPERATOR JENNY ALEMAN M.D. Performed By: #### C OVID 19 [facility] #### [place] [id number] [facility] XR hand LT min 3V*on 022 XR hand LT min 3V* [facility] [place] [address] [place] [address] XRay Report Signed Patient: Sukh Cisneros MR#: [id number] : 1980 Acct:[id number] Age/Sex: 41 / M ADM Date: 07/29/21 Loc: [facility] Room: Type: [facility] CLI Attending Dr: Collins Cruz MD Ordering Provider: [...] Calli Dixon M.D.07/29/2021 1:14 PM Dictation Location: [place] [address] Transcribed By: [facility] 07/29/21 1314 Dictated By: Calli Dixon MD 07/29/21 1311 Signed By: 07/29/21 1314 Normal [facility] SARS-CoV-2 (COVID-19) RNA SHA+probe Ql (Unsp spec) Negative Normal Negative [facility] Comment on above: Order Comment: Healt hcare Worker?: N Result Comment: Testing for SARS-CoV-2 by RT-PCR This test was developed and its performance characteristics determined by [employer] and validated at the [facility]. This test has not been FDA cleared [...] is terminated or revoked sooner. PERFORMED BY: [facility] [address] [facility] [id number] PATHOLOGIST TETRYL BOILING TUB OPERATOR JENNY ALEMAN M.D. Performed By: #### C OVID 19 [facility] #### [facility] [address] [id number] [facility] Vital Signs Date Time Vital Sign Value Performing Clinician Facility 06-09-2024 09:40-0400 Body height 177.8 cm [facility] 06-09-2024 09:40-0400 Body mass index (BMI) [Ratio] 32.8 kg/m2 [facility] 06-09-2024 09:40-0400 Body temperature 97.8 [degF] [facility] 06-09-2024 09:40-0400 Body weight 103.87 kg [facility] 06-09-2024 09:40-0400 Diastolic blood pressure 90 mm[Hg] [facility] 06-09-2024 09:40-0400 Heart rate 94 /min [facility] 06-09-2024 09:40-0400 SaO2% (BldA) [Mass fraction] 96 % [facility] 06-09-2024 09:40-0400 Systolic blood pressure 128 mm[Hg] [facility] 12-31-2023 10:37-0400 Body height 177.8 cm [facility] 12-31-2023 10:37-0400 Body mass index (BMI) [Ratio] 32 kg/m2 [facility] 12-31-2023 10:37-0400 Body temperature 96.7 [degF] [facility] 12-31-2023 10:37-0400 Body weight 101.15 kg [facility] 12-31-2023 10:37-0400 Diastolic blood pressure 90 mm[Hg] [facility] 12-31-2023 10:37-0400 SaO2% (BldA) [Mass fraction] 98 % [facility] 12-31-2023 10:37-0400 Systolic blood pressure 138 mm[Hg] [facility] 11-19-2023 14:00-0400 Body height 177.8 cm [facility] 11-19-2023 14:00-0400 Body mass index (BMI) [Ratio] 31.8 kg/m2 [facility] 11-19-2023 14:00-0400 Body weight 100.69 kg [facility] 11-19-2023 14:00-0400 Diastolic blood pressure 88 mm[Hg] [facility] 11-19-2023 14:00-0400 Heart rate 97 /min [facility] 11-19-2023 14:00-0400 SaO2% (BldA) [Mass fraction] 97 % [facility] 11-19-2023 14:00-0400 Systolic blood pressure 138 mm[Hg] [facility] 12-16-2022 14:10-0400 Body height 177.8 cm Kylee Lizarraga Other [employer] [facility] Other 12-16-2022 14:10-0400 Body mass index (BMI) [Ratio] 33.4 kg/m2 Kylee Lizarraga Other [employer] Other 12-16-2022 14:10-0400 Body temperature 98.1 [degF] Kylee Lizarraga Other [employer] Other 12-16-2022 14:10-0400 Body weight 105.6 kg Kylee Lizarraga Other [employer] Other 12-16-2022 14:10-0400 Diastolic blood pressure 98 mm[Hg] Kylee Lizarraga Other [employer] Other 12-16-2022 14:10-0400 Respiratory rate 18 /min Kylee Lizarraga Other [employer] Other 12-16-2022 14:10-0400 SaO2% (BldA) [Mass fraction] 97 % Kylee Lizarraga Other [employer] Other 12-16-2022 14:10-0400 Systolic blood pressure 149 mm[Hg] Kylee Lizarraga Other [facility] Other 03-13-2022 18:45-0500 Body height 177.8 cm Hazel Garault Other [employer] Other 03-13-2022 18:45-0500 Body mass index (BMI) [Ratio] 32.71 kg/m2 Hazel Garault Other [employer] Other 03-13-2022 18:45-0500 Body temperature 97.1 [degF] Hazel Lm Other [employer] Other 03-13-2022 18:45-0500 Body weight 103.42 kg Hazel Garault Other [facility] Other 03-13-2022 18:45-0500 Diastolic blood pressure 104 mm[Hg] Hazel Garault Other [employer] Other 03-13-2022 18:45-0500 Respiratory rate 18 /min Hazel Lm Other [employer] Other 03-13-2022 18:45-0500 SaO2% (BldA) [Mass fraction] 98 % Hazel Lm Other [employer] Other 03-13-2022 18:45-0500 Systolic blood pressure 155 mm[Hg] Hazel Lm Other [facility] Other 01-19-2022 05:00-0400 Diastolic blood pressure 98 mm[Hg] [facility] Work Phone: [facility] 01-19-2022 05:00-0400 Heart rate 90 /min [facility] Work Phone: [facility] 01-19-2022 05:00-0400 Respiratory rate 18 /min [facility] Work Phone: [facility] 01-19-2022 05:00-0400 SaO2% (BldA) [Mass fraction] 99 % [facility] Work Phone: [facility] 01-19-2022 05:00-0400 Systolic blood pressure 164 mm[Hg] [facility] Work Phone: [facility] 01-18-2022 22:45-0400 Body height 177.8 cm [facility] Work Phone: [facility] 01-18-2022 22:45-0400 Body weight 95.25 kg [facility] Work Phone: [facility] 01-18-2022 22:44-0400 Body temperature 98.5 [degF] [facility] Work Phone: [facility] 01-12-2022 22:28-0400 Body temperature 97.9 [degF] [facility] Work Phone: [facility] 01-12-2022 22:28-0400 Diastolic blood pressure 97 mm[Hg] [facility] Work Phone: [facility] 01-12-2022 22:28-0400 Heart rate 89 /min [facility] Work Phone: [facility] 01-12-2022 22:28-0400 Respiratory rate 20 /min [facility] Work Phone: [facility] 01-12-2022 22:28-0400 SaO2% (BldA) [Mass fraction] 98 % [facility] Work Phone: [facility] 01-12-2022 22:28-0400 Systolic blood pressure 154 mm[Hg] [facility] Work Phone: [facility] 01-12-2022 22:24-0400 Body height 177.8 cm [facility] Work Phone: [facility] 01-12-2022 22:24-0400 Body weight 104.32 kg [facility] Work Phone: [facility] 09-03-2021 10:00-0400 Body height 177.8 cm Marilynmicheal Rao Other [employer] Other 09-03-2021 10:00-0400 Body mass index (BMI) [Ratio] 35.01 kg/m2 Marilyn Calvey Other [facility] Other 09-03-2021 10:00-0400 Body weight 110.68 kg Marilynmicheal Rao Other [facility] Other 07-29-2021 12:15-0400 Body height 177.8 cm Collins Olexa Other [employer] Other 07-29-2021 12:15-0400 Body mass index (BMI) [Ratio] 35.01 kg/m2 Collins Olexa Other [employer] Other 07-29-2021 12:15-0400 Body weight 110.68 kg Collins Olexa Other [facility] Other 07-09-2021 11:15-0400 Body height 177.8 cm Collins Olexa Other [facility] Other 07-09-2021 11:15-0400 Body mass index (BMI) [Ratio] 35.01 kg/m2 Collins Cruz Other [facility] Other 07-09-2021 11:15-0400 Body weight 110.68 kg Collins Cruz Other [employer] Other Encounters Encounter Date Encounter Type Care Provider Facility Start: 07-04-2024 ambulatory [place] acility:[facility] [place] Start: 06-29-2024 ambulatory [place] ility:[facility] [place] Start: 06-09-2024 End: 06-09-2024 ambulatory [facility] Work Phone: Start: 06-09-2024 End: 06-09-2024 Patient encounter procedure [facility] Work Phone: Start: 12-31-2023 End: 12-31-2023 ambulatory [facility] Work Phone: Start: 12-31-2023 End: 12-31-2023 Patient encounter procedure [facility] Work Phone: Start: 11-19-2023 Patient encounter status [facility] Start: 11-19-2023 End: 11-19-2023 ambulatory [facility] Work Phone: Start: 11-19-2023 End: 11-19-2023 Encounter for general adult medical examination without abnormal findings [facility] Start: 11-19-2023 End: 11-19-2023 Patient encounter procedure [facility] Work Phone: Start: 12-16-2022 End: 12-16-2022 ambulatory Kylee Lizarraga Other [facility] Other Start: 12-16-2022 Office outpatient vi sit 15 minutes Kylee Lizarraga [facility] [place] Start: 08-27-2022 End: 08-27-[address] DELANEY SYED Facility:[facility] Start: 03-13-2022 End: 03-13-2022 ambulatory Hazel Amato Other [facility] Other Start: 03-13-2022 Office outpatient vi sit 15 minutes Hazel Amato [facility] Start: 02-12-2022 End: 02-12-2022 ambulatory Marilyn Rao Other [facility] Other Start: 02-12-2022 Office outpatient vi sit 15 minutes Marilyn Rao [facility] Start: 01-31-2022 Patient encounter procedure Marilynmicheal Rao [facility] Start: 01-31-2022 End: 01-31-2022 ambulatory [employer] [facility] Work Phone: [facility] Work Phone: Start: 01-31-2022 End: 01-31-2022 Departed Referred [employer] [facility] Work Phone: [facility] [place] Start: 01-29-2022 End: 01-29-[address] ALVINO VANCE . Facility:[facility] Start: 01-24-2022 End: 01-24-[address] MADELEINE COELHO Facility:[facility] Start: 01-23-2022 End: 01-24-[address] DOCTOR HERRMANN Facility:[facility] Start: 01-19-2022 End: 01-19-2022 Emergency department patient visit [facility] Dept Facility:[facility] Start: 01-18-2022 End: 01-19-2022 Emergency department patient visit [facility] Work Phone: [facility] Start: 01-18-2022 End: 01-18-[address] EL SOLIS Facility:[facility]1 Start: 01-17-2022 End: 01-17-[address] DOCTOR HERRMANN Facility:[facility] Start: 01-14-2022 End: 01-14-2022 ambulatory Marilyn Rao Other [facility] Other Start: 01-14-2022 Office outpatient vi sit 15 minutes Marilyn Calvey [facility] Start: 01-13-2022 End: 01-13-2022 Emergency department [facility] Start: 01-12-2022 End: 01-13-2022 Emergency department patient visit [facility] Dept Work Phone: [facility] Start: 01-11-2022 End: 01-11-[address] VIRAMONTES [facility] Facility: Start: 10-04-2021 End: 10-04-2021 ambulatory Marilyn Jalen Other [facility] Other Start: 10-04-2021 Postop follow up vis it related to original px Marilyn Calvey [facility] Start: 09-19-2021 End: 09-19-2021 ambulatory [facility] Dept Facility:[facility] Start: 09-17-2021 End: 09-17-2021 ambulatory Marilyn Willoughbyandrew Facility:[facility] Start: 09-03-2021 End: 09-03-2021 ambulatory Marilyn Jalen Other [facility] Other Start: 09-03-2021 Office outpatient ne w 45 minutes Marilyn Calvey [facility] Start: 07-29-2021 Office outpatient vi sit 15 minutes Collins Olexa [facility] Start: 07-29-2021 End: 07-29-2021 ambulatory Collins Olexa [facility] Other Start: 07-09-2021 End: 07-09-2021 ambulatory Collins Olexa Other [facility] Other Start: 07-09-2021 Postop follow up vis it related to original px Collins Olexa [facility] Start: 07-01-2021 End: 07-01-2021 ambulatory Collins Olexa Other [employer] [facility] [facility] Other Start: 07-01-2021 Telephone encounter Collins Olexa [facility] Start: 06-26-2021 End: 06-26-2021 ambulatory Collins Olexa Facility:[facility] Start: 06-25-2021 End: 06-25-2021 ambulatory Collins Olexa Other [facility] [employer] [facility] Other Start: 06-25-2021 Telephone encounter Collins Olexa [facility] Start: 06-24-2021 End: 06-24-2021 ambulatory Collins Olexa Facility:[facility] Plan of Treatment Date Care Activity Detail Author Start: 06-09-2024 Patient referral [facility] Work Phone: Start: 01-31-2022 [facility] Aerobic Culture Aerobic Culture [facility] Anaerobic Culture Anaerobic Culture [facility] Comprehensive metabo lic 1999 panel - Serum or Plasma [facility] Comprehensive metabo lic 1999 panel - Serum or Plasma [facility] Microscopic observat ion [Identifier] in Unspecified specimen by Gram stain Gram Stain [facility] Patient Education [facility] Work Phone: Patient referral [facility] Work Phone: [facility] XR Lumbar spine Views [facility] Payers Date Payer Category Payer Self-pay [id number] 1980 Unknown [id number] 2.16.84 [id number] 1980 Unknown [id number] .16.84 [id number] 1980 Unknown [id number] .16.84 0.1.821594.3.579.2.593 1980 Unknown [id number] 2.16.84 0.1.068506.3.579.2.593 1980 Unknown [id number] 2.16.84 0.1.134170.3.579.2.593 1980 Unknown [id number] 2.16.84 0.1.408447.3.579.2.593 1980 Unknown [id number] 2.16.84 0.1.252531.3.579.2.593 1980 Unknown [id number] 2.16.8 40.1.738625.3.579.2.727 1959 Medicaid [id number] 1959 Unknown [id number] 2.1 [id number] Medicaid [id number] Unknown [id number] 2.16.8 40.1.956687.3.579.2.531 Unknown [id number] 2.16.8 40.1.639659.3.579.2.531 Unknown [id number] 2.16.8 40.1.146696.3.579.2.531 Unknown [id number] 2.16.8 40.1.242527.3.579.2.531 Unknown [id number] 2.16.8 40.1.164342.3.579.2.531 Unknown [id number] 2.16.8 40.1.132527.3.579.2.531 Unknown [id number] 2.16.8 40.1.163260.3.579.2.531 Unknown [id number] 2.16.8 40.1.448570.3.579.2.531 Social History Date Type Detail Facility Unknown if ever smoked [facility] Other Sex Assigned At Sex Assigned At Bir th [facility] Other Start: 01-13-2022 Tobacco smoking status NHIS Smoker (finding) [facility] Start: 1980 Sex Assigned At Male [facility] Start: 01-19-2022 End: 01-19-2022 Tobacco smoking status NHIS Never smoked tobacco (finding) [facility] Start: 11-19-2023 End: 12-31-2023 Tobacco smoking status ALIS Ex-smoker (finding) [facility] Start: 06-09-2024 Sex Male (finding) [facility] Clinical Notes 06-25-2021 to 12-16-2022 Note Date [...] secondary to dental infection. see above plan [facility] Other 05-31-2023 NotePROCEDURE: XR ELBOW RT MIN [...] Electronically authenticated by: DELANEY SYED Date: 2022-08-27 08:32[facility] Evaluation note* Encounter Date Diagnosis Assessment [...] should improve within the next 4-7 days. [facility] Other 11-16-2022 Evaluation note* Encounter Date Diagnosis [...] pain, may use norco for severe pain. [facility] Other 11-04-2022 Evaluation note* Encounter Date Diagnosis Assessment Notes Treatment Notes Treatment Clinical Notes Jan, Abscess of hand, left (ICD-10 - L02.512) I and D performed in office, culture obtained. Patient instructed on soaking protocal, given handout. Rx given for Dazey [facility] Other 10-18-2022 Evaluation note* Encounter Date Diagnosis [...] Other specified postprocedural states (ICD-10 - Z98.890) [facility] Other 07-08-2022 Evaluation note* Encounter Date Diagnosis Assessment Notes Treatment Notes Treatment Clinical Notes Sep, Ganglion cyst of finger of left hand (ICD-10 - M67.442) Sutures removed today, patient tolerated well. Patient instructed to slowly progress as tolerated. Patient instructed on wound care Sep, Other specified postprocedural states (ICD-10 - Z98.890) Sep, Visit for suture removal (ICD-10 - Z48.02) [facility] Other 06-07-2022 Evaluation note* Encounter Date Diagnosis Assessment Notes Treatment Notes Treatment Clinical Notes Aug, Ganglion cyst of finger of left hand (ICD-10 - M67.442) We will proceed with surgical excision of mass [facility] Other 05-02-2022 Evaluation note* Encounter Date Diagnosis [...] Z98.890) Patient is progressing well from surgery. [facility] Other 04-12-2022 Evaluation note* Encounter Date Diagnosis [...] Visit for suture removal (ICD-10 - Z48.02) [facility] Other 03-29-2022 Evaluation note* Encounter Date Diagnosis Assessment Notes Treatment Notes Treatment Clinical Notes May, Other specified postprocedural states (ICD-10 - Z98.890) [facility] Other Evaluation noteNo [employer] Other Evaluation noteNo assessment information available [facility] Work Phone: evaluation note* Diagnosis Onset Date Resolution Status Anxiety acute Depression acute Screening for deficiency anemia acute Screening for lipid disorders acute Screening for metabolic disorder acute Wellness examination acute [facility] Work Phone: evaluation note* Diagnosis Onset Date Resolution Status Anxiety acute Depression acute Screening for deficiency anemia acute Screening for lipid disorders acute Screening for metabolic disorder acute Wellness examination acute Anxiety acute [facility] Work Phone: evaluation note* Diagnosis Onset Date Resolution Status Admit Date Blood in stool acute May 9:35am GERD (gastroesophageal reflu x disease) acute June 09, 2024 9:35am Low back pain acute June 09, 2024 9:35am Right upper quadrant pain acute June 09, 2024 9:35am [facility] Work Phone: [facility] general Narrative - Reported* Type Description Date Medical History Carpal tunnel syndrome of right wrist Medical History Carpal tunnel syndrome of left w rist Medical History Kidney stone Surgical History appendectomy 2011 Hospitalization History see above [facility] Other [facility] general Narrative - Reported* Type Description Date Medical History Carpal tunnel syndrome of right wrist Medical History Carpal tunnel syndrome of left w rist Medical History Kidney stone Surgical History appendectomy 2012 Surgical History left carpal tunnel release Hospitalization History see above [facility] Other Hospital Discharge instructions Additional Instructions Follow-up Dr. Amador 1 to 2 days [facility] are [facility] Work Phone: Hospital Discharge instructions Additional Instructions Do not drive or operate heavy machinery while taking narcotics or muscle relaxers Follow-up with your orthopedic surgeon, you can also call the phone number below for neurosurgery Perform the stretches and exercises Return for worsening numbness or complete weakness, headache, or other worsening concerns [facility] Work Phone: Hospital Discharge instructionsAmbulatory Orders* Referral to Gastroenterology Time Frame: 06/09/24, Location: None Selected * Referral to Pain Management Time Frame: 06/09/24, Location: None Selected [facility] Work Phone: Chief Complaint and Reason for Visit Chief [...] Right upper quadrant pain June 09 9:35am Advance Directives No Advanced Directives Records Found Advance Directive Response Recorded Date/ Time Advance Directives No May 05, 2018 2:55pm Advance Directive Response Recorded Date/ Time Advance Directives No May 05, 2018 1:55pm Summary Purpose Family History Relationship Condition Age at Onset Recorded Date/T deepali father Malignant neoplasm Unknown father Unknown Malignant neoplasm Unknown No Family History Records Found Additional Source Comments REASON FOR VISIT (unrecogniz ed section and content) post op scriptRecheck Left W ristpost op questionsOP PROJECT ENG LT HAND INDEX FING PAIN (HAD CTR IN [place])Left Hand NoduleRecheck Left Index FingerLeft Hand Pain and SwellingLeft Hand PainRecheck Left HandCONGESTION COUGH SORE THROATTOOTH INFECTION, PAIN Care Teams (unrecognized sec tion and content) Team Status: Inactive Member Role Status Dates [facility] Primary Care Provider Active Meño Coelho MD Emergency Provider Active Team Status: Active Member Role Status Dates [facility] Primary Care Provider Active Team Status: Inactive Member Role Status Dates [facility] Primary Care Provider Active Mino Gallego DO Emergency Provider Active Team Status: Inactive Member Role Status Dates [facility] Dept Primary Care Provider Active Marilyn Rao MD Attending Provider Active Team Status: Active Member Role Status Dates La Contreras APRN PROJECT ENG-C Primary Care Provider Active Team Status: Inactive Member Role Status Dates La Contreras APRN PROJECT ENG-C Primary Care Provider, Attending Provider Active Start: November 19, 2023 End: November 19, 2023 Team Status: Inactive Member Role Status Dates La Contreras APRN PROJECT ENG-C Primary Care Provider, Attending Provider Active Start: December 31, 2023 End: December 31, 2023 Team Status: Inactive Member Role Status Dates La Contreras APRN PROJECT ENG-C Primary Care Provider, Attending Provider Active Start: June 09, 2024 End: June 09, 2024 Goals (unrecognized section and content) Goals may be documented in a n alternate section (unrecognized sect ion and content) No Status Records FoundNo Status Records FoundNo Status Records Found INFORMATION SOURCE (unrecogn ized section and content) DATE CREATED AUTHOR 05/03/2022 [facility] DATE CREATED AUTHOR AUTHOR'S ORGANIZ ATION 09/05/2022 [facility] DATE CREATED AUTHOR AUTHOR'S ORGANIZ ATION 07/02/2024 [facility] FOR RECORDS PERTAINING TO PATIENTS WHO ARE [...] BE BASED ON THE PRIMARY CLINICAL RECORDS. [employer] provides no warranty or guarantee of the accuracy or completeness of information in this document.
--- NOTE | 2024-07-04 13:08 | PM.CN ---
Consult Note: HPI Data of Consult Patient: new to practice Consult date: 07/04/24 Requesting Physician: Jojo Jesus MD Primary Care Provider: ANGIE MONSALVE Consult Narrative Reason for consult: low back, bilateral hip, bilateral leg pain Narrative: 44yom who presents for evaluation. longstanding low back, bilateral hip pain with numbness into bilateral lower extremities, L>R. ongoing for >1 year. no trauma. has engaged in provider directed home exercise program >6 weeks, without significant benefit. primarily uses otc pain meds as needed. lumbar xr shows multilevel degenerative changes in lower lumbar spine. cc:: CC: Jojo Jesus MD Review of Systems ROS Status of ROS 10 or more systems reviewed and unremarkable except as noted in history and below PFSH [facility] Social History Little interest or pleasure in doing things: not at all Feeling down, depressed, or hopeless: not at all Meds Home Medications and Allergies Home Medications ?Medication ?Instructions ?Recorded ?Confirmed ?Type buspirone 5 mg tablet mg 06/11/24 History escitalopram oxalate 20 mg tablet mg 06/11/24 History prednisone 20 mg tablet 20 mg PO BID 7 days #14 tabs 06/11/24 Rx trazodone 50 mg tablet mg 06/11/24 History Allergies Allergy/AdvReac Type Severity Reaction Status Date / Time No Known Drug Allergies Allergy Verified 06/11/24 16:49 Exam Narrative Exam Narrative: Psych-alert and oriented x 3. Attentive and appropriate, constitutionally normal, displays normal mood and affect per situation. There are no obvious deficits in memory, reasoning, or intellect.? Skin-no obvious rashes, bruising, erythema noted to the patient's area of pain.? Extremities- extremities are warm with minimal edema and palpable pulses. Lumbar-tenderness to palpation noted in the lumbar spine and paraspinal musculature. Pain is elicited with flexion, extension, and lateral rotation of the lumbar spine. Range of motion is diminished with these motions. Facet loading maneuvers are positive.? Strength-noted to be unremarkable with the exception of decreased strength rated at 4 out of 5 in bilateral quadriceps femoris, anterior tibialis. Sensory-no notable sensory deficits in the bilateral lower extremities to touch or pinprick in all dermatomal distributions with the exception to decreased sensation to the bilateral L4, 5 dermatomal distribution Coordination remains intact.? Gait remains non-antalgic. Assessment and Plan Assessment and Plan (1) Lumbar stenosis with neurogenic claudication: (2) Lumbar spondylosis: Plan 44yom who presents for evaluation. failed conservative measures, as noted. imaging reviewed, as noted. given symptoms and imaging, will have him undergo lumbar mri without contrast for further info. he is in agreement. meds reviewed, will trial gabapentin 300mg tid. follow up after imaging.
== END 2024-07-04 12:06 | disposition home or self-care (01) ==
LOC: PM 12:06
PROVIDERS: PCP Nurse Practitioner Family; Visit Provider Anesthesiology
DX: M48.062 Spinal stenosis, lumbar region with neurogenic claudication (principal); M47.816 Spondylosis without myelopathy or radiculopathy, lumbar region
CPT/HCPCS: G0463

== ENCOUNTER 2024-07-04 21:14 | Emergency (ER) | payer OTHER, SELFPAY ==
[2024-07-04] VITALS (7 sets, daily range): BP systolic 128–157; BP diastolic 90–94; PULSE 85–105; TEMP 36.9; O2SAT 95–98; BMI 32.5
--- NOTE | 2024-07-04 21:26 | ECG_ITS ---
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 Measurements Intervals [place] Rate: 97 P: 33 OK: 136 QRS: 46 QRSD: 88 T: 58 QT: 328 QTc: 383 Interpretive Statements 1100 Sinus rhythm 9110 normal ECG Compared to ECG 01/18/2022 08:45:07 No significant changes Electronically Signed On 07-05-2024 19:57:02 EDT by ISABELL HOLT M.D.
--- OUTSIDE RECORDS SUMMARY | 2024-07-04 21:31 | XMS_ITS | CCD ---
Author Organization [facility] Care Team Providers Care Bark Peeler Name Role Phone Collins Cruz Unavailable Marilyn Rao Unavailable [facility] Primary Care Provider [phone] MD Meño Coelho Emergency Provider DO Mino Gallego Emergency Provider [facility] Primary Care Provider MD Meño Coelho Emergency Provider DO Mino Gallego Emergency Provider MD Marilyn Rao Attending Provider [phone] Marilyn Rao Admitting Unavailable Marilyn Rao Attending Unavailable [facility], [facility] Primary Care Unavailable Collins Cruz Attending Unavailable Collins Cruz Admitting Unavailable [facility], [facility] Primary Care Unavailable Collins Cruz Attending Unavailable Collins Cruz Admitting Unavailable [facility], [facility] Primary Care Unavailable [facility], [facility] Primary Care Unavailable Marilyn Rao Attending Unavailable Marilyn Rao Admitting Unavailable [facility], [facility] Primary Care Unavailable iMno Gallego Attending Unavailable Mino Gallego Admitting Unavailable [facility], [facility] Primary Care Unavailable Meño Coelho Attending Unavailable Meño Coelho Admitting Unavailable Collins Cruz Attending Unavailable Nancy, Collins Admitting Unavailable [facility], [facility] Primary Care Unavailable Marilyn Rao Attending Unavailable Marilyn Rao Admitting Unavailable [facility], [facility] Primary Care Unavailable LmHazel Unavailable RAJIV Faulkner, [...] Drug Class(es) Dates Sig (Normalized) Sig (Original) [id number] 200 actuat albuterol 0.09 mg/actuat metered dose [...] extended release oral tablet (2 sources) Uncompetitive W-rnwhhu-H-aspa rtate Receptor Antagonist, Sigma-1 Agonist Start: 03-13-2022 [...] 10-04-2021 Episodic Other aftercare (1 source) Other half-way (current) drug therapy; Translations: [OTH SNF CURRENT DRUG THERAPY] Onset: 01-30-2022 Episodic Other [...] (COVID-19) RNA SHA+probe Ql (Unsp spec) Negative Zero[facility] Other COVID/FLU RT-PCR Positive Noosh Other COVID/FLU RT-PCR Negative Noosh Other Aerobic Cultureon 01-31-2022 Aerobic Culture Light Normal Skin Nayeli 2 Days No Anaerobes Isolated 3 Days Gram Stain Result No Bacteria Seen No White Blood Cells Seen PERFORMED BY: [place] [address] PATHOLOGIST SENIOR ELECTRICAL DESIGN ENGINEER JENNY ALEMAN M.D. Normal [facility] Comment on above: Performed By: #### A ERC #### [place] [address] [place] CULTURE WOUNDon 01-28-2022 CULTURE WOUND Culture [...] S C Oxacillin 2 S C Normal [facility] Comment on above: Performed By: #### W OUNDCX ####[facility] [id number] [address]Dr. Miguel Devries CBC AUTO DIFFon 01-24-2022 BASO # 0.1 103/ul Normal 0.0-0.1 [facility] Comment on above: Performed By: #### C BC #### [facility] [address] [place] [address] Dr. Miguel Devries Basophils/100 WBC (Bld) 0.4 % Normal 0.2-2.0 [facility] Comment on above: Performed By: #### C BC #### [facility] [address] [place] [address] Dr. Miguel Devries EO # 0.4 103/ul Normal 0.0-0.7 [facility] Comment on above: Performed By: #### C BC #### [facility] [address] [address] [address] Miguel Devries Eosinophils/100 WBC (Bld) 2.8 % Normal 0.9-7.0 [facility] Comment on above: Performed By: #### C BC #### [facility] [address] [place] [address] Dr. Miguel Devries Erythrocyte distribution width (RBC) [Ratio] 12.3 % Normal 11.0-15.0 [facility] Comment on above: Performed By: #### C BC #### [facility] [address] [place] [address] Dr. Miguel Devries Hematocrit (Bld) [Volume fraction] 40.9 % Critically low 42.0-54.0 [facility] Comment on above: Performed By: #### C BC #### [facility] [address] [place] [address] Dr. Miguel Devries Hemoglobin (Bld) [Mass/Vol] 14.7 g/dL Normal 14.0-18.0 [facility] Comment on above: Performed By: #### C BC #### [facility] [address] [place] [address] Dr. Miguel Devries IG # 0.06 10e3/ul Critically high 0.00-0.03 [facility] Comment on above: Performed By: #### C BC #### [facility] [address] [place] [address] Dr. Miguel Devries IG % 0.4 % Normal 0.0-0.5 [facility] Comment on above: Performed By: #### C BC #### [facility] [address] [place] [address] Dr. Miguel Devries LYMPH # 2.6 103/ul Normal 1.2-3.8 [facility] Comment on above: Performed By: #### C BC #### [facility] [address] [place] [address] Dr. Miguel Devries Lymphocytes/100 WBC (Bld) 17.6 % Critically low 20.5-60.0 [facility] Comment on above: Performed By: #### C BC #### [facility] [address] [place] [address] Dr. Miguel Devries MANUAL DIFF REQ NO Normal [facility] Comment on above: Performed By: #### C BC #### [facility] [address] [place] [address] Dr. Miguel Devries MCH (RBC) [Entitic mass] 32.5 pg Normal 25.9-34.0 [facility] Comment on above: Performed By: #### C BC #### [facility] [address] [place] [address] Dr. Miguel Devries MCHC (RBC) [Mass/Vol] 35.9 g/dL Critically high 29.9-35.2 [facility] Comment on above: Performed By: #### C BC #### [facility] [address] [address] [address] Miguel Devries MCV (RBC) [Entitic vol] 90.5 fL Normal 80.0-94.0 [facility] Comment on above: Performed By: #### C BC #### [facility] [address] [place] [address] Dr. Miguel Devries MONO # 1.1 103/ul Critically high 0.3-0.8 [facility] Comment on above: Performed By: #### C BC #### [facility] [address] [place] [address] Dr. Miguel Devries Monocytes/100 WBC (Bld) 7.2 % Normal 1.7-12.0 [facility] Comment on above: Performed By: #### C BC #### [facility] [address] [place] [address] Dr. Miguel Devries NEUT # 10.6 103/ul Critically high 1.4-6.5 [facility] Comment on above: Performed By: #### C BC #### [facility] [address] [place] [address] Dr. Miguel Devries Neutrophils/100 WBC (Bld) 71.6 % Normal 43.0-75.0 [facility] Comment on above: Performed By: #### C BC #### [facility] [address] [place] [address] Dr. Miguel Devries Platelet mean volume (Bld) [Entitic vol] 9.7 fL Normal 9.5-13.5 [facility] Comment on above: Performed By: #### C BC #### [facility] [address] [place] [address] Dr. Miguel Devries PLT 266 103/ul Normal 150-450 [facility] Comment on above: Performed By: #### C BC #### [facility] [address] [place] [address] Dr. Miguel Devries RBC 4.52 106/ul Critically low 4.70-6.10 [facility] Comment on above: Performed By: #### C BC #### [facility] [address] [address] [address] Miguel Devries WBC 14.7 103/ul Critically high 4.0-11.0 [facility] Comment on above: Performed By: #### C BC #### [facility] [address] [address] [address] Miguel Devries CULTURE BLOODon 01-24-2022 Microscopic examination of blood, culture Culture Observations: NO GROWTH AT 5 DAYS. Normal [facility] Comment on above: Performed By: #### B LDCX2 ####[facility] [address] [address]Dr. Miguel Devries Microscopic examination of blood, culture Culture Observations: NO GROWTH AT 5 DAYS. Normal [facility] Comment on above: Performed By: #### B LDCX1 ####[facility] [address] [address]Dr. Miguel Devries PROF 14(COMP METB)on 022 Albumin [Mass/Vol] 3.4 g/dL Normal 3.4-5.0 [facility] Comment on above: Performed By: #### C MP #### [facility] [address] [place] [address] Dr. Miguel Devries Albumin/Globulin [Mass ratio] 1.1 {ratio} [facility] Comment on above: Performed By: #### C MP #### [facility] [address] [place] [address] Dr. Miguel Devries ALP [Catalytic activity/Vol] 66 U/L Normal 46-116 [facility] Comment on above: Performed By: #### C MP #### [facility] [address] [place] [address] Dr. Miguel Devries ALT [Catalytic activity/Vol] 28 U/L Normal 16-63 [facility] Comment on above: Performed By: #### C MP #### [facility] [address] [place] [address] Dr. Miguel Devries Anion gap [Moles/Vol] 9.8 mmol/L Normal [facility] Comment on above: Performed By: #### C MP #### [facility] [address] [place] [address] Dr. Miguel Devries AST [Catalytic activity/Vol] 16 U/L Normal 15-37 [facility] Comment on above: Performed By: #### C MP #### [facility] [address] [address] [address] Miguel Devries Bilirubin [Mass/Vol] 0.2 mg/dL Normal 0.2-1.0 [facility] Comment on above: Performed By: #### C MP #### [facility] [address] [place] [address] Dr. Miguel Devries Calcium [Mass/Vol] 8.0 mg/dL Critically low 8.5-10.1 [facility] Comment on above: Performed By: #### C MP #### [facility] [address] [place] [address] Dr. Miguel Devries Chloride [Moles/Vol] 106 mmol/L Normal 98-107 [facility] Comment on above: Performed By: #### C MP #### [facility] [address] [place] [address] Dr. Miguel Devries CO2 [Moles/Vol] 27.6 mmol/L Normal 21.0-32.0 [facility] Comment on above: Performed By: #### C MP #### [facility] [address] [address] [address] Miguel Devries Creatinine [Mass/Vol] 0.79 mg/dL Normal 0.70-1.30 [facility] Comment on above: Performed By: #### C MP #### [facility] [address] [place] [address] Dr. Miguel Devries EGFR-AF AUSTRIAN >60 Normal >=60 [facility] Comment on above: Performed By: #### C MP #### [facility] [address] [address] [address] Miguel Devries EGFR-NON AF AUSTRIAN >60 Normal >=60 [facility] Comment on above: Performed By: #### C MP #### [facility] [address] [address] [address] Miguel Devries Globulin (S) [Mass/Vol] 3.0 g/dL Normal [facility] Comment on above: Performed By: #### C MP #### [facility] [address] [address] [address] Miguel Devries Glucose [Mass/Vol] 113 mg/dL Critically high 74-106 [facility] Comment on above: Performed By: #### C MP #### [facility] [address] [address] [address] Miguel Devries Potassium [Moles/Vol] 3.4 mmol/L Critically low 3.5-5.1 [facility] Comment on above: Performed By: #### C MP #### [facility] [address] [address] [address] Miguel Devries Protein [Mass/Vol] 6.4 g/dL Normal 6.4-8.2 [facility] Comment on above: Performed By: #### C MP #### [facility] [address] [address] [address] Miguel Devries Sodium [Moles/Vol] 140 mmol/L Normal 136-145 [facility] Comment on above: Performed By: #### C MP #### [facility] [address] [address] [address] Miguel Devries Urea nitrogen [Mass/Vol] 14.0 mg/dL Normal 7.0-18.0 [facility] Comment on above: Performed By: #### C MP #### [facility] [address] [address] [address] Miguel Devries Urea nitrogen/Creatinine [Mass ratio] 17.7 mg/mg Normal [facility] Comment on above: Performed By: #### C MP #### [facility] [address] [address] [address] Miguel Devries XR CSPINE 2_3 VIEWSon [...] by: DELANEY SYED Date: 2022-01-23 18:16 Normal [facility] ECG 12 lead ECGon 01-19-2022 ECG 12 lead ECG [facility] [place] [address] [place] [address] Electrocardiograph Report Signed Patient: Sukh Cisneros MR#: [id number] : 1980 Acct:[id number] Age/Sex: 41 / M ADM Date: 01/18/22 Loc: ER Room: Type: [facility] ER Attending Dr: Ordering Provider: [...] longer present Confirmed by Mino Gallego DO ([id number]) on 01/19/2022 4:26:01 AM Referred By: Electronically Signed By:Mino Gallego DO Transcribed By: MUS Signed By Mino Gallego DO 01/19 0426 Normal [facility] CT CSPINE WO CONon CT CSPINE WO [...] by: REINA REID Date: 2022-01-18 11:02 Normal [facility] Basic Metabolic Panelon 12-28 Anion gap [Moles/Vol] 12.0 mmol/L Normal 6.0-15.0 [facility] Comment on above: Performed By: #### C BC, BMP #### [facility] [address] [place] [address] [place] Calcium [Mass/Vol] 8.7 mg/dL Normal 8.2-10.2 [facility] Comment on above: Performed By: #### C BC, BMP #### [facility] [address] [place] [address] [place] Chloride [Moles/Vol] 105 mmol/L Normal 95-114 [facility] Comment on above: Performed By: #### C BC, BMP #### [facility] [address] [place] [address] [place] CO2 [Moles/Vol] 22.9 mmol/L Normal 22.0-30.0 [facility] Comment on above: Performed By: #### C BC, BMP #### [facility] [address] [id number] [place] Creatinine [Mass/Vol] 0.73 mg/dL Normal 0.64-1.27 [facility] Comment on above: Performed By: #### C BC, BMP #### [facility] [address] [place] [address] [place] Creatinine Clr Calc Pharmacy 161.10 Normal [facility] Comment on above: Result Comment: PERF ORMED BY: [facility] [place] [address] PATHOLOGIST SENIOR ELECTRICAL DESIGN ENGINEER JENNY ALEMAN M.D. Performed By: #### C BC, BMP #### [address] Estimated GFR ( Sheela > 60 Normal [facility] Comment on above: Result Comment: GFR estimated reference range: According to KDOQI guidelines, <60 ml/min/1.73m2 is sufficient to diagnose a patient with chronic kidney disease. Performed By: #### C BC, BMP #### [address] Estimated GFR (Non- Am > 60 Normal [facility] Comment on above: Performed By: #### C BC, BMP #### [address] Glucose [Mass/Vol] 91 mg/dL Normal 70-100 [facility] Comment on above: Result Comment: [place] Glucose Reference Range is dependent on time and content of last meal. Glucose of more than 200 mg/dL in a nonstressed, ambulatory subject supports the diagnosis of Diabetes Mellitus. ADA recommended reference range Performed By: #### C BC, BMP #### [address] Potassium [Moles/Vol] 3.9 mmol/L Normal 3.5-5.1 [facility] Comment on above: Performed By: #### C BC, BMP #### [address] Sodium [Moles/Vol] 136 mmol/L Normal 136-146 [facility] Comment on above: Performed By: #### C BC, BMP #### [address] Urea nitrogen [Mass/Vol] 7 mg/dL Low 9-23 [facility] Comment on above: Performed By: #### C BC, BMP #### [address] Basophils Auto (Bld) [#/Vol] Ordered By: Meño Coelho on 01-13-2022 Basophils (Bld) [#/Vol] 0.1 10*3/uL 0.0-0.2 [facility] Basophils/100 WBC Auto (Bld) Ordered By: Meño Coelho on 01-13-2022 Basophils/100 WBC (Bld) 0.8 % . F [facility] Complete Blood Count Auto Di ffon 01-13-2022 Basophils (Bld) [#/Vol] 0.1 10*3/uL Normal 0.0-0.2 [facility] Comment on above: Result Comment: PERF ORMED BY: [place] [address] PATHOLOGIST SENIOR ELECTRICAL DESIGN ENGINEER JENNY ALEMAN M.D. Performed By: #### C BC, BMP #### [address] Basophils/100 WBC (Bld) 0.8 % Normal . F [facility] Comment on above: Performed By: #### C BC, BMP #### [address] Eosinophils (Bld) [#/Vol] 0.4 10*3/uL Normal 0.0-0.45 [facility] Comment on above: Performed By: #### C BC, BMP #### [address] Eosinophils/100 WBC (Bld) 6.2 % Normal . [facility] Comment on above: Performed By: #### C BC, BMP #### [address] Erythrocyte distribution width (RBC) [Ratio] 12.7 % Normal 12.0-14.8 [facility] Comment on above: Performed By: #### C BC, BMP #### [address] Hematocrit (Bld) [Volume fraction] 44.2 % Normal 38.8-50.0 [facility] Comment on above: Performed By: #### C BC, BMP #### [address] Hemoglobin (Bld) [Mass/Vol] 15.1 g/dL Normal 13.0-17.0 [facility] Comment on above: Performed By: #### C BC, BMP #### [address] Lymphocytes (Bld) [#/Vol] 2.6 10*3/uL Normal 1.00-4.8 [facility] Comment on above: Performed By: #### C BC, BMP #### [address] Lymphocytes/100 WBC (Bld) 38.5 % Normal . [facility] Comment on above: Performed By: #### C ORB, BMP #### [address] MCH (RBC) [Entitic mass] 32.1 pg Normal 27.5-35.2 [facility] Comment on above: Performed By: #### C ROB, BMP #### [address] MCV (RBC) [Entitic vol] 94.1 fL Normal 83.5-101 F [facility] Comment on above: Performed By: #### C ROB, BMP #### [address] Mean Corpuscular HGB Conc 34.2 g/dL Normal 32.5-35.6 [facility] Comment on above: Performed By: #### C BC, BMP #### [address] Monocytes (Bld) [#/Vol] 0.5 10*3/uL Normal 0.0-0.8 [facility] Comment on above: Performed By: #### C BC, BMP #### [address] Monocytes/100 WBC (Bld) 7.1 % Normal . [facility] Comment on above: Performed By: #### C BC, BMP #### [address] Neutrophils (Bld) [#/Vol] 3.2 10*3/uL Normal 1.8-7.7 [facility] Comment on above: Performed By: #### C ROB, BMP #### [facility] [address] Neutrophils/100 WBC (Bld) 47.4 % Normal . [facility] Comment on above: Performed By: #### C BC, BMP #### [facility] [address] [place] [address] [place] Nucleated RBC/100 WBC (Bld) [Ratio] 0.1 % Normal 0-0.5 [facility] Comment on above: Performed By: #### C ROB, BMP #### [facility] [address] Platelet mean volume (Bld) [Entitic vol] 8.9 fL Normal 6.6-10.1 [facility] Comment on above: Performed By: #### C ROB, BMP #### [facility] [address] [place] [address] [place] Platelets (Bld) [#/Vol] 209 10*3/uL Normal 150-450 [facility] Comment on above: Performed By: #### C ROB, BMP #### [facility] [address] [place] [address] [place] RBC (Bld) [#/Vol] 4.70 10*6/uL Normal 3.90-5.60 [facility] Comment on above: Performed By: #### C BC, BMP #### [facility] [address] [place] [address] [place] WBC (Bld) [#/Vol] 6.8 10*3/uL Normal 4.5-11.0 [facility] Comment on above: Performed By: #### C BC, BMP #### [facility] [address] [place] [address] [place] Creatinine and Glomerular fi ltration rate.predicted panel (S/P/Bld)Ordered By: Meño Coelho on 01-13-2022 Creatinine [Mass/Vol] 0.73 mg/dL 0.64-1.27 [facility] Eosinophils Auto (Bld) [#/Vo l]Ordered By: Meño Coelho on 01-13-2022 Eosinophils (Bld) [#/Vol] 0.4 10*3/uL 0.0-0.45 [facility] Eosinophils/100 WBC Auto (Bl d)Ordered By: Meño Coelho on 01-13-2022 Eosinophils/100 WBC (Bld) 6.2 % . [facility] Erythrocyte distribution wid th Auto (RBC) [Ratio]Ordered By: Meño Coelho on 01-13-2022 Erythrocyte distribution width (RBC) [Ratio] 12.7 % 12.0-14.8 [facility] Estimated glomerular filtrat ion rate (GFR) non- AmericanOrdered By: Meño Coelho on 01-13-2022 GFR/1.73 sq M.predicted among non-blacks MDRD (S/P/Bld) [Vol rate/Area] > 60 mL/Min [facility] Hematocrit Auto (Bld) [Volum e fraction]Ordered By: Meño Coelho on 01-13-2022 Hematocrit (Bld) [Volume fraction] 44.2 % 38.8-50.0 [facility] Hemoglobin [Mass/volume] in BloodOrdered By: Meño Coelho on 01-13-2022 Hemoglobin (Bld) [Mass/Vol] 15.1 g/dL 13.0-17.0 [facility] - Hematology and Cell countsOrdered By: Meño Coelho on 01-13-2022 Nucleated RBC/100 WBC (Bld) [Ratio] 0.1 % 0-0.5 [facility] Leukocytes [#/volume] in Blo od by Automated countOrdered By: Meño Coelho on 01-13-2022 WBC (Bld) [#/Vol] 6.8 10*3/uL 4.5-11.0 [facility] Lymphocytes Auto (Bld) [#/Vo l]Ordered By: Meño Coelho on 01-13-2022 Lymphocytes (Bld) [#/Vol] 2.6 10*3/uL 1.00-4.8 [facility] Lymphocytes/100 WBC Auto (Bl d)Ordered By: Meño Coelho on 01-13-2022 Lymphocytes/100 WBC (Bld) 38.5 % . [facility] MCH Auto (RBC) [Entitic mass ]Ordered By: Meño Coelho on 01-13-2022 MCH (RBC) [Entitic mass] 32.1 pg 27.5-35.2 [facility] MCHC Auto (RBC) [Mass/Vol]Or dered By: Meño Coelho on 01-13-2022 MCHC (RBC) [Mass/Vol] 34.2 g/dL 32.5-35.6 [facility] MCV Auto (RBC) [Entitic vol] Ordered By: Meño Coelho on 01-13-2022 MCV (RBC) [Entitic vol] 94.1 fL 83.5-101 F [facility] Monocytes Auto (Bld) [#/Vol] Ordered By: Meño Coelho on 01-13-2022 Monocytes (Bld) [#/Vol] 0.5 10*3/uL 0.0-0.8 [facility] Monocytes/100 WBC Auto (Bld) Ordered By: Meño Coelho on 01-13-2022 Monocytes/100 WBC (Bld) 7.1 % . [facility] Neutrophils Auto (Bld) [#/Vo l]Ordered By: Meño Coelho on 01-13-2022 Neutrophils (Bld) [#/Vol] 3.2 10*3/uL 1.8-7.7 [facility] Neutrophils/100 WBC Auto (Bl d)Ordered By: Meño Coelho on 01-13-2022 Neutrophils/100 WBC (Bld) 47.4 % . [facility] No Panel InformationOrdered By: Meño Coelho on 01-13-2022 Estimated GFR () > 60 mL/Min [facility] Comment on above: GFR estimated refere nce range: According to KDOQI guidelines, <60 ml/min/1.73m2 is sufficient to diagnose a patient with chronic kidney disease. Pharmacy Creatinine Clearance (Chem 161.10 [facility] Platelet mean volume Auto (B ld) [Entitic vol]Ordered By: Meño Coelho on 01-13-2022 Platelet mean volume (Bld) [Entitic vol] 8.9 fL 6.6-10.1 [facility] Platelets Auto (Bld) [#/Vol] Ordered By: Meño Coelho on 01-13-2022 Platelets (Bld) [#/Vol] 209 10*3/uL 150-450 [facility] RBC Auto (Bld) [#/Vol]Ordere d By: Meño Coelho on 01-13-2022 RBC (Bld) [#/Vol] 4.70 10*6/uL 3.90-5.60 [facility] Serum or plasma anion gap de terminationOrdered By: Meño Coelho on 01-13-2022 Anion gap [Moles/Vol] 12.0 mmol/L 6.0-15.0 [facility] Serum or plasma calcium roseline urement (mass/volume)Ordered By: Meño Coelho on 01-13-2022 Calcium [Mass/Vol] 8.7 mg/dL 8.2-10.2 [facility] Serum or plasma chloride mary jo surement (moles/volume)Ordered By: Meño Coelho on 01-13-2022 Chloride [Moles/Vol] 105 mmol/L 95-114 [facility] Serum or plasma glucose roseline urement (mass/volume)Ordered By: Meño Coelho on 01-13-2022 Glucose [Mass/Vol] 91 mg/dL 70-100 [facility] Comment on above: ADA recommended refe rence rangeRandom Glucose Reference Range is dependent on time and content of last meal. Glucose of more than 200 mg/dL in a nonstressed, ambulatory subject supports the diagnosis of Diabetes Mellitus. Serum or plasma potassium me asurement (moles/volume)Ordered By: Meño Coelho on 01-13-2022 Potassium [Moles/Vol] 3.9 mmol/L 3.5-5.1 [facility] Serum or plasma sodium measu rement (moles/volume)Ordered By: Meño Coelho on 01-13-2022 Sodium [Moles/Vol] 136 mmol/L 136-146 [facility] Serum or plasma total carbon dioxide measurement (moles/volume)Ordered By: Meño Coelho on 01-13-2022 CO2 [Moles/Vol] 22.9 mmol/L 22.0-30.0 [facility] Serum or plasma urea nitroge n measurement (mass/volume)Ordered By: Meño Coelho on 01-13-2022 Urea nitrogen [Mass/Vol] 7 mg/dL 9-23 [facility] CBC AUTO DIFFon 01-11-2022 BASO # 0.0 103/ul Normal 0.0-0.1 [facility] Comment on above: Performed By: #### C BC #### [facility] [address] [place] [address] Dr. Miguel Devries Basophils/100 WBC (Bld) 0.4 % Normal 0.2-2.0 [facility] Comment on above: Performed By: #### C BC #### [facility] [address] [place] [address] Dr. Miguel Devries EO # 0.5 103/ul Normal 0.0-0.7 [facility] Comment on above: Performed By: #### C BC #### [facility] [address] [place] [address] Dr. Miguel Devries Eosinophils/100 WBC (Bld) 5.0 % Normal 0.9-7.0 [facility] Comment on above: Performed By: #### C BC #### [facility] [address] [place] [address] Dr. Miguel Devries Erythrocyte distribution width (RBC) [Ratio] 11.9 % Normal 11.0-15.0 [facility] Comment on above: Performed By: #### C BC #### [facility] [address] [place] [address] Dr. Miguel Devries Hematocrit (Bld) [Volume fraction] 44.8 % Normal 42.0-54.0 [facility] Comment on above: Performed By: #### C BC #### [facility] [address] [place] [address] Dr. Miguel Devries Hemoglobin (Bld) [Mass/Vol] 15.7 g/dL Normal 14.0-18.0 [facility] Comment on above: Performed By: #### C BC #### [facility] [address] [place] [address] Dr. Miguel Devries IG # 0.03 10e3/ul Normal 0.00-0.03 [facility] Comment on above: Performed By: #### C BC #### [facility] [address] [place] [address] Dr. Miguel Devries IG % 0.3 % Normal 0.0-0.5 [facility] Comment on above: Performed By: #### C BC #### [facility] [address] [place] [address] Dr. Miguel Devries LYMPH # 2.5 103/ul Normal 1.2-3.8 [facility] Comment on above: Performed By: #### C BC #### [facility] [address] [place] [address] Dr. Miguel Devries Lymphocytes/100 WBC (Bld) 25.6 % Normal 20.5-60.0 [facility] Comment on above: Performed By: #### C BC #### [facility] [address] [place] [address] Dr. Miguel Devries MANUAL DIFF REQ NO Normal [facility] Comment on above: Performed By: #### C BC #### [facility] [address] [place] [address] Dr. Miguel Devries MCH (RBC) [Entitic mass] 32.2 pg Normal 25.9-34.0 [facility] Comment on above: Performed By: #### C BC #### [facility] [address] [place] [address] Dr. Miguel Devries MCHC (RBC) [Mass/Vol] 35.0 g/dL Normal 29.9-35.2 [facility] Comment on above: Performed By: #### C BC #### [facility] [address] [place] [address] Dr. Miguel Devries MCV (RBC) [Entitic vol] 92.0 fL Normal 80.0-94.0 [facility] Comment on above: Performed By: #### C BC #### [facility] [address] [place] [address] Dr. Miguel Devries MONO # 0.7 103/ul Normal 0.3-0.8 [facility] Comment on above: Performed By: #### C BC #### [facility] [address] [place] [address] Dr. Miguel Devries Monocytes/100 WBC (Bld) 7.2 % Normal 1.7-12.0 [facility] Comment on above: Performed By: #### C BC #### [facility] [address] [place] [address] Dr. Miguel Devries NEUT # 5.9 103/ul Normal 1.4-6.5 [facility] Comment on above: Performed By: #### C BC #### [facility] [address] [place] [address] Dr. Miguel Devries Neutrophils/100 WBC (Bld) 61.5 % Normal 43.0-75.0 [facility] Comment on above: Performed By: #### C BC #### [facility] [address] [place] [address] Dr. Miguel Devries Platelet mean volume (Bld) [Entitic vol] 10.0 fL Normal 9.5-13.5 [facility] Comment on above: Performed By: #### C BC #### [facility] [address] [place] [address] Dr. Miguel Devries PLT 252 103/ul Normal 150-450 [facility] Comment on above: Performed By: #### C BC #### [facility] [address] [place] [address] Dr. Miguel Devries RBC 4.87 106/ul Normal 4.70-6.10 [facility] Comment on above: Performed By: #### C BC #### [facility] [address] [place] [address] Dr. Miguel Devries WBC 9.6 103/ul Normal 4.0-11.0 [facility] Comment on above: Performed By: #### C BC #### [facility] [address] [place] [address] Dr. Miguel Devries CRPon 01-11-2022 CRP [Mass/Vol] mg/L Normal <=1.0 [facility] Comment on above: Performed By: #### C RP, BMP #### [facility] [address] [place] [address] HAND LT WO [...] ARMAND JUARES Date: 2022-01-11 18:50 Normal [facility] CULTURE BLOODon 01-11-2022 Microscopic examination of blood, culture Culture Observations: No growth at 5 days. Normal [facility] Comment on above: Performed By: #### B LDCX2 #### [facility] [address] [place] [address] Dr. Miguel Devries Microscopic examination of blood, culture Culture Observations: No growth at 5 days. Normal [facility] Comment on above: Performed By: #### B LDCX1 #### [facility] [address] [address] [address] Miguel Devries LACTATE/LACTIC ACIDon 2021 Lactate [Moles/Vol] 1.0 mmol/L Normal 0.4-1.9 [facility] Comment on above: Performed By: #### L ACT ####[facility] [address] [address]Dr. Miguel Devries PROF CHEM 8 (BAS METB)on Anion gap [Moles/Vol] 10.3 mmol/L Normal [facility] Comment on above: Performed By: #### C RP, BMP #### [facility] [address] [address] [address] Miguel Devries Calcium [Mass/Vol] 9.1 mg/dL Normal 8.5-10.1 [facility] Comment on above: Performed By: #### C RP, BMP #### [facility] [address] [address] [address] Miguel Devries Chloride [Moles/Vol] 104 mmol/L Normal 98-107 [facility] Comment on above: Performed By: #### C RP, BMP #### [facility] [address] [address] [address] Miguel Devries CO2 [Moles/Vol] 26.5 mmol/L Normal 21.0-32.0 [facility] Comment on above: Performed By: #### C RP, BMP #### [facility] [address] [address] [address] Miguel Devries Creatinine [Mass/Vol] 0.81 mg/dL Normal 0.70-1.30 [facility] Comment on above: Performed By: #### C RP, BMP #### [facility] [address] [address] [address] Miguel Devries EGFR-AF AUSTRIAN >60 Normal >=60 [facility] Comment on above: Performed By: #### C RP, BMP #### [facility] [address] [place] [address] Dr. Miguel Devries EGFR-NON AF AUSTRIAN >60 Normal >=60 [facility] Comment on above: Performed By: #### C RP, BMP #### [facility] [address] [address] [address] Miguel Devries Glucose [Mass/Vol] 96 mg/dL Normal 74-106 [facility] Comment on above: Performed By: #### C RP, BMP #### [facility] [address] [address] [address] Miguel Devries Potassium [Moles/Vol] 3.8 mmol/L Normal 3.5-5.1 [facility] Comment on above: Performed By: #### C RP, BMP #### [facility] [address] [address] [address] Miguel Devries Sodium [Moles/Vol] 137 mmol/L Normal 136-145 [facility] Comment on above: Performed By: #### C RP, BMP #### [facility] [address] [address] [address] Miguel Devries Urea nitrogen [Mass/Vol] 10.0 mg/dL Normal 7.0-18.0 [facility] Comment on above: Performed By: #### C RP, BMP #### [facility] [address] [address] [address] Miguel Devries Urea nitrogen/Creatinine [Mass ratio] 12.3 mg/mg Normal [facility] Comment on above: Performed By: #### C RP, BMP #### [facility] [address] [address] [address] Miguel Devries SED RATE [facility] 2021 SED RATE 13 mm/hr Normal <=15 [facility] Comment on above: Performed By: #### S EDR #### [facility] [address] [address] [address] Miguel Devries Drug Screen,Urineon 09-20-19 Amphetamine Screen,Urine Positive High Negative [facility] Comment on above: Performed By: #### U RDS #### [address] Barbiturate Screen,Urine Negative Normal Negative [facility] Comment on above: Performed By: #### U RDS #### [address] Benzodiazepines Screen,Urine Negative Normal Negative [facility] Comment on above: Performed By: #### U RDS #### [address] Cannabinoid Screen,Urine Positive High Negative [facility] Comment on above: Result Comment: Thes e are unconfirmed results and should not be used for legal purposes. Drug Cut-Off Concentration: AMPH 1000 ng/mL SHERRIE 200 ng/mL MONICA 200 ng/mL COCM 300 ng/mL OP 300 ng/mL PCP 25 ng/mL THC 20 ng/mL PERFORMED BY: [place] [address] PATHOLOGIST SENIOR ELECTRICAL DESIGN ENGINEER JENNY ALEMAN M.D. Performed By: #### U RDS #### [address] Cocaine Screen,Urine Negative Normal Negative [facility] Comment on above: Performed By: #### U RDS #### [address] Opiate Screen,Urine Negative Normal Negative [facility] Comment on above: Performed By: #### U RDS #### [address] Phencyclidine Screen,Urine Negative Normal Negative [facility] Comment on above: Performed By: #### U RDS #### [address] 09-19-2021 L -- Specimen: [id number] Received: 09/19/21 Status: JHON Norman Num: [id number] Spec Type: Surgical Subm Dr: Marilyn Rao MD Tissues: A Skin-Other than Cyst, tag, debridement or plastic repair (LT INDEX FINGER) Procedures: HE Stain, Gross/Micro L3 -- Patient Age/Sex Location Account Attending Physician -- Sukh Cisneros/[place] [id number] Marilyn Rao MD -- SPEC NUM: [id number] RECD: 09/19/21 STATUS: JHON ERISUnruly NUM: [id number] EKATERINA: 09/19/21- SUBM DR: Marilyn Rao MD ENTERED: 09/19/[address] [facility] DR: SUSANA TYPE: Surgical DEPT: S ORDERED: [...] slide with H and E stain material [place]. The microscopic findings support the above diagnosis. CPT Codes 97712 -- -- Specimen: [id number] Received: 09/19/21 Status: JHON Emerson Num: [id number] Spec Type: Surgical Subm Dr: Marilyn Rao MD Tissues: A Skin-Other than Cyst, tag, debridement or plastic repair (LT INDEX FINGER) Procedures: HE Stain, Gross/Micro L3 -- Patient: OsirismatSukh [id number] (Continued) -- Signed (signatu re on file) Lilli Sheehan MD 09/23/21 1859 Normal [facility] SARS-CoV-2 (COVID-19) RNA SHA+probe Ql (Unsp spec) Negative Normal Negative [facility] Comment on above: Order Comment: Healt hcare Worker?: N Result Comment: Testing for SARS-CoV-2 by RT-PCR This test was developed and its performance characteristics determined by [employer]) and validated at the [facility]. This test has not been FDA [...] is terminated or revoked sooner. PERFORMED BY: [place] [address] PATHOLOGIST SENIOR ELECTRICAL DESIGN ENGINEER JENNY ALEMAN M.D. Performed By: #### C OVID 19 [facility] #### [address] [id number] [facility] XR hand LT min 3V*on 022 XR hand LT min 3V* [facility] [place] [address] [place] [address] XRay Report Signed Patient: Sukh Cisneros MR#: [id number] : 1980 Acct:[id number] Age/Sex: 41 / M ADM Date: 07/29/21 Loc: [facility] Room: Type: [facility] CLI Attending Dr: Collins Cruz MD [...] Calli Dixon M.D.07/29/2021 1:14 PM Dictation Location: [place] [address] Transcribed By: [facility] 07/29/21 1314 Dictated By: Calli Dixon MD 07/29/21 1311 Signed By: 07/29/21 1314 Normal [facility] SARS-CoV-2 (COVID-19) RNA SHA+probe Ql (Unsp spec) Negative Normal Negative [facility] Comment on above: Order Comment: Healt hcare Worker?: N Result Comment: Testing for SARS-CoV-2 by RT-PCR This test was developed and its performance characteristics determined by [employer]) and validated at the [facility]. This test has not been FDA [...] is terminated or revoked sooner. PERFORMED BY: [facility] [address] [id number] PATHOLOGIST SENIOR ELECTRICAL DESIGN ENGINEER JENNY ALEMAN M.D. Performed By: #### C OVID 19 [facility] #### [facility] [address] [id number] [facility] Vital Signs Date Time Vital Sign Value Performing Clinician Facility 06-09-2024 09:40-0400 Body height 177.8 cm [facility] 06-09-2024 09:40-0400 Body mass index (BMI) [Ratio] 32.8 kg/m2 [facility] 06-09-2024 09:40-0400 Body temperature 97.8 [degF] [facility] 06-09-2024 09:40-0400 Body weight 103.87 kg [facility] 06-09-2024 09:40-0400 Diastolic blood pressure 90 mm[Hg] [facility] 06-09-2024 09:40-0400 Heart rate 94 /min [facility] 06-09-2024 09:40-0400 SaO2% (BldA) [Mass fraction] 96 % [facility] 06-09-2024 09:40-0400 Systolic blood pressure 128 mm[Hg] [facility] 12-31-2023 10:37-0400 Body height 177.8 cm [facility] 12-31-2023 10:37-0400 Body mass index (BMI) [Ratio] 32 kg/m2 [facility] 12-31-2023 10:37-0400 Body temperature 96.7 [degF] [facility] 12-31-2023 10:37-0400 Body weight 101.15 kg [facility] 12-31-2023 10:37-0400 Diastolic blood pressure 90 mm[Hg] [facility] 12-31-2023 10:37-0400 SaO2% (BldA) [Mass fraction] 98 % [facility] 12-31-2023 10:37-0400 Systolic blood pressure 138 mm[Hg] [facility] 11-19-2023 14:00-0400 Body height 177.8 cm [facility] 11-19-2023 14:00-0400 Body mass index (BMI) [Ratio] 31.8 kg/m2 [facility] 11-19-2023 14:00-0400 Body weight 100.69 kg [facility] 11-19-2023 14:00-0400 Diastolic blood pressure 88 mm[Hg] [facility] 11-19-2023 14:00-0400 Heart rate 97 /min [facility] 11-19-2023 14:00-0400 SaO2% (BldA) [Mass fraction] 97 % [facility] 11-19-2023 14:00-0400 Systolic blood pressure 138 mm[Hg] [facility] 12-16-2022 14:10-0400 Body height 177.8 cm Kylee Lizarraga Other [facility] [employer] Other 12-16-2022 14:10-0400 Body mass index (BMI) [Ratio] 33.4 kg/m2 Kylee Lizarraga Other [facility] Other 12-16-2022 14:10-0400 Body temperature 98.1 [degF] Kylee Lizarraga Other [facility] Other 12-16-2022 14:10-0400 Body weight 105.6 kg Kylee Lizarraga Other [facility] Other 12-16-2022 14:10-0400 Diastolic blood pressure 98 mm[Hg] Kylee Lizarraga Other [facility] Other 12-16-2022 14:10-0400 Respiratory rate 18 /min Kylee Lizarraga Other [facility] Other 12-16-2022 14:10-0400 SaO2% (BldA) [Mass fraction] 97 % Kylee Lizarraga Other [facility] Other 12-16-2022 14:10-0400 Systolic blood pressure 149 mm[Hg] Kylee Lizarraga Other [facility] Other 03-13-2022 18:45-0500 Body height 177.8 cm Hazel Garault Other [facility] Other 03-13-2022 18:45-0500 Body mass index (BMI) [Ratio] 32.71 kg/m2 Hazel Garault Other [facility] Other 03-13-2022 18:45-0500 Body temperature 97.1 [degF] Hazel Lm Other [facility] Other 03-13-2022 18:45-0500 Body weight 103.42 kg Hazel Garault Other [facility] Other 03-13-2022 18:45-0500 Diastolic blood pressure 104 mm[Hg] Hazel Garault Other [facility] Other 03-13-2022 18:45-0500 Respiratory rate 18 /min Hazel Lm Other [facility] Other 03-13-2022 18:45-0500 SaO2% (BldA) [Mass fraction] 98 % Hazel Lm Other [facility] Other 03-13-2022 18:45-0500 Systolic blood pressure 155 mm[Hg] Hazel Lm Other [facility] Other 01-19-2022 05:00-0400 Diastolic blood pressure 98 mm[Hg] [facility] Work Phone: [facility] 01-19-2022 05:00-0400 Heart rate 90 /min [facility] Work Phone: [facility] 01-19-2022 05:00-0400 Respiratory rate 18 /min [facility] Work Phone: [facility] 01-19-2022 05:00-0400 SaO2% (BldA) [Mass fraction] 99 % [facility] Work Phone: [facility] 01-19-2022 05:00-0400 Systolic blood pressure 164 mm[Hg] [facility] Work Phone: [facility] 01-18-2022 22:45-0400 Body height 177.8 cm [facility] Work Phone: [facility] 01-18-2022 22:45-0400 Body weight 95.25 kg [facility] Work Phone: [facility] 01-18-2022 22:44-0400 Body temperature 98.5 [degF] [facility] Work Phone: [facility] 01-12-2022 22:28-0400 Body temperature 97.9 [degF] [facility] Work Phone: [facility] 01-12-2022 22:28-0400 Diastolic blood pressure 97 mm[Hg] [facility] Work Phone: [facility] 01-12-2022 22:28-0400 Heart rate 89 /min [facility] Work Phone: [facility] 01-12-2022 22:28-0400 Respiratory rate 20 /min [facility] Work Phone: [facility] 01-12-2022 22:28-0400 SaO2% (BldA) [Mass fraction] 98 % [facility] Work [facility] 01-12-2022 22:28-0400 Systolic blood pressure 154 mm[Hg] [facility] Work [facility]: [facility] 01-12-2022 22:24-0400 Body height 177.8 cm [facility] Work Phone: [facility] 01-12-2022 22:24-0400 Body weight 104.32 kg [facility] Work Phone: [facility] 09-03-2021 10:00-0400 Body height 177.8 cm Marilynmicheal Rao Other [facility] Other 09-03-2021 10:00-0400 Body mass index (BMI) [Ratio] 35.01 kg/m2 Marilyn Calvey Other [facility] Other 09-03-2021 10:00-0400 Body weight 110.68 kg Marilynmicheal Rao Other [facility] Other 07-29-2021 12:15-0400 Body height 177.8 cm Collins Olexa Other [facility] Other 07-29-2021 12:15-0400 Body mass index (BMI) [Ratio] 35.01 kg/m2 Collins Olexa Other [facility] Other 07-29-2021 12:15-0400 Body weight 110.68 kg Collins Olexa Other [facility] Other 07-09-2021 11:15-0400 Body height 177.8 cm Collins Olexa Other [facility] Other 07-09-2021 11:15-0400 Body mass index (BMI) [Ratio] 35.01 kg/m2 Collins Cruz Other [facility] Other 07-09-2021 11:15-0400 Body weight 110.68 kg Collins Cruz Other [facility] Other Encounters Encounter Date Encounter Type Care Provider Facility Start: 07-04-2024 ambulatory [place] Hicks acility:ARTI Perris Start: 06-29-2024 ambulatory [place] Winchester ility:EU Boyds Start: 06-09-2024 End: 06-09-2024 ambulatory [facility] Work Phone: Start: 06-09-2024 End: 06-09-2024 Patient encounter procedure [facility] Physician [facility] Work Phone: Start: 12-31-2023 End: 12-31-2023 ambulatory [facility] Work Phone: Start: 12-31-2023 End: 12-31-2023 Patient encounter procedure [facility] Physician [facility] Work Phone: Start: 11-19-2023 Patient encounter status [facility] Start: 11-19-2023 End: 11-19-2023 ambulatory [facility] Work Phone: Start: 11-19-2023 End: 11-19-2023 Encounter for general adult medical examination without abnormal findings [facility] Start: 11-19-2023 End: 11-19-2023 Patient encounter procedure [facility] Physician [facility] Work Phone: Start: 12-16-2022 End: 12-16-2022 ambulatory Kylee Lizarraga Other [facility] Other Start: 12-16-2022 Office outpatient vi sit 15 minutes Kylee Lizarraga [facility] Start: 08-27-2022 End: 08-27-[address] DELANEY SYED Facility:[facility] Start: 03-13-2022 End: 03-13-2022 ambulatory Hazel Amato Other [facility] Other Start: 03-13-2022 Office outpatient vi sit 15 minutes Hazel Amato [facility] Start: 02-12-2022 End: 02-12-2022 ambulatory Marilyn Rao Other [facility] Other Start: 02-12-2022 Office outpatient vi sit 15 minutes Marilyn Rao [facility] Start: 01-31-2022 Patient encounter procedure Marilynmicheal Rao [facility] Start: 01-31-2022 End: 01-31-2022 ambulatory [facility] Work Phone: [facility] Work Phone: Start: 01-31-2022 End: 01-31-2022 Departed Referred [facility] Work Phone: [facility] [place] Start: 01-29-2022 End: 01-29-[address] ALVINO VANCE . Facility:[facility] Start: 01-24-2022 End: 01-24-[address] MADELEINE COELHO Facility:[facility] Start: 01-23-2022 End: 01-24-[address] DOCTOR HERRMANN Facility:[facility] Start: 01-19-2022 End: 01-19-2022 Emergency department patient visit [facility] Dept Facility:[facility] Start: 01-18-2022 End: 01-19-2022 Emergency department patient visit [facility] Dept Work Phone: [facility] Start: 01-18-2022 End: 01-18-[address] EL SOLIS Facility:[facility] Start: 01-17-2022 End: 01-17-[address] DOCTOR HERRMANN Facility:[facility] Start: 01-14-2022 End: 01-14-2022 ambulatory Marilyn Rao Other [facility] Other Start: 01-14-2022 Office outpatient vi sit 15 minutes Marilyn Calvey [facility] Start: 01-13-2022 End: 01-13-2022 Emergency department [facility] Facility:[facility] Start: 01-12-2022 End: 01-13-2022 Emergency department patient visit [facility] Dept Work Phone: [facility] Start: 01-11-2022 End: 01-11-[address] [facility] Facility: Start: 10-04-2021 End: 10-04-2021 ambulatory Marilyn Jalen Other [facility] Other Start: 10-04-2021 Postop follow up vis it related to original px Marilyn Calvey [facility] Start: 09-19-2021 End: 09-19-2021 ambulatory [facility] Dept Facility:[facility] Start: 09-17-2021 End: 09-17-2021 ambulatory Marilyn Willoughbyandrew Facility:[facility] Start: 09-03-2021 End: 09-03-2021 ambulatory Marilyn Jalen Other [facility] Other Start: 09-03-2021 Office outpatient ne w 45 minutes Marilyn Calvey [facility] Start: 07-29-2021 Office outpatient vi sit 15 minutes Collins Olexa [facility] Start: 07-29-2021 End: 07-29-2021 ambulatory Collins Olexa [facility] Other Start: 07-09-2021 End: 07-09-2021 ambulatory Collins Olexa Other [facility] Other Start: 07-09-2021 Postop follow up vis it related to original px Collins Olexa [facility] Start: 07-01-2021 End: 07-01-2021 ambulatory Collins Olexa Other [facility] [employer] Other Start: 07-01-2021 Telephone encounter Collins Olexa [facility] Start: 06-26-2021 End: 06-26-2021 ambulatory Collins Olexa Facility:[facility] Start: 06-25-2021 End: 06-25-2021 ambulatory Collins Olexa Other [facility] [employer] Other Start: 06-25-2021 Telephone encounter Collins Olexa [facility] Start: 06-24-2021 End: 06-24-2021 ambulatory Collins Olexa Facility:[facility] Plan of Treatment Date Care Activity Detail Author Start: 06-09-2024 Patient referral [facility] Work Phone: Start: 01-31-2022 [facility] Aerobic Culture Aerobic Culture [facility] Anaerobic Culture Anaerobic Culture [facility] Comprehensive metabo lic 1999 panel - Serum or Plasma [facility] Comprehensive metabo lic 1999 panel - Serum or Plasma [facility] Microscopic observat ion [Identifier] in Unspecified specimen by Gram stain Gram Stain [facility] Patient Education [facility] Work Phone: Patient referral [facility] Work Phone: [facility] XR Lumbar spine Views [facility] Payers Date Payer Category Payer Self-pay [id number] 1980 Unknown [id number] 2.16.84 [id number] 1980 Unknown [id number] .16.84 [id number] 1980 Unknown [id number] .16.84 [id number] 1980 Unknown [id number] 2.16.84 0.1.682698.3.579.2.593 1980 Unknown [id number] 2.16.84 0.1.920397.3.579.2.593 1980 Unknown [id number] 2.16.84 0.1.093092.3.579.2.593 1980 Unknown [id number] 2.16.84 0.1.367910.3.579.2.593 1980 Unknown [id number] 2.16.8 40.1.339580.3.579.2.727 1959 Medicaid [id number] 1959 Unknown [id number] 2.1 [id number] Medicaid [id number] Unknown [id number] 2.16.8 40.1.900177.3.579.2.531 Unknown [id number] 2.16.8 40.1.683012.3.579.2.531 Unknown [id number] 2.16.8 40.1.596852.3.579.2.531 Unknown [id number] 2.16.8 40.1.918845.3.579.2.531 Unknown [id number] 2.16.8 40.1.949646.3.579.2.531 Unknown [id number] 2.16.8 40.1.553235.3.579.2.531 Unknown [id number] 2.16.8 40.1.132071.3.579.2.531 Unknown [id number] 2.16.8 40.1.902572.3.579.2.531 Social History Date Type Detail Facility Unknown if ever smoked [facility] Other Sex Assigned At Sex Assigned At Bir th [facility] Other Start: 01-13-2022 Tobacco smoking status NHIS Smoker (finding) [facility] Start: 1980 Sex Assigned At Male F [facility] Start: 01-19-2022 End: 01-19-2022 Tobacco smoking status NHIS Never smoked tobacco (finding) [facility] Start: 11-19-2023 End: 12-31-2023 Tobacco smoking status SCIS Ex-smoker (finding) [facility] Start: 06-09-2024 Sex Male (finding) [facility] Clinical Notes 06-25-2021 to 12-16-2022 Note [...] secondary to dental infection. see above plan [facility] Other 05-31-2023 NotePROCEDURE: XR ELBOW RT MIN [...] Electronically authenticated by: DELANEY SYED Date: 2022-08-27 08:32[facility]12-15-2022 Evaluation note* Encounter Date Diagnosis Assessment Notes [...] should improve within the next 4-7 days. [facility] Other 11-16-2022 Evaluation note* Encounter Date Diagnosis [...] pain, may use norco for severe pain. [facility] Other 11-04-2022 Evaluation note* Encounter Date Diagnosis Assessment Notes Treatment Notes Treatment Clinical Notes Jan, Abscess of hand, left (ICD-10 - L02.512) I and D performed in office, culture obtained. Patient instructed on soaking protocal, given handout. Rx given for [place] [facility] Other 10-18-2022 Evaluation note* Encounter Date Diagnosis [...] Other specified postprocedural states (ICD-10 - Z98.890) [facility] Other 07-08-2022 Evaluation note* Encounter Date Diagnosis Assessment Notes Treatment Notes Treatment Clinical Notes Sep, Ganglion cyst of finger of left hand (ICD-10 - M67.442) Sutures removed today, patient tolerated well. Patient instructed to slowly progress as tolerated. Patient instructed on wound care Sep, Other specified postprocedural states (ICD-10 - Z98.890) Sep, Visit for suture removal (ICD-10 - Z48.02) [facility] Other 06-07-2022 Evaluation note* Encounter Date Diagnosis Assessment Notes Treatment Notes Treatment Clinical Notes Aug, Ganglion cyst of finger of left hand (ICD-10 - M67.442) We will proceed with surgical excision of mass [facility] Other 05-02-2022 Evaluation note* Encounter Date Diagnosis [...] Z98.890) Patient is progressing well from surgery. [facility] Other 04-12-2022 Evaluation note* Encounter Date Diagnosis [...] Visit for suture removal (ICD-10 - Z48.02) [facility] Other 03-29-2022 Evaluation note* Encounter Date Diagnosis Assessment Notes Treatment Notes Treatment Clinical Notes May, Other specified postprocedural states (ICD-10 - Z98.890) [facility] Other Evaluation noteNo InformationNort [employer] Other Evaluation noteNo assessment information available [facility] Work Phone: evaluation note* Diagnosis Onset Date Resolution Status Anxiety acute Depression acute Screening for deficiency anemia acute Screening for lipid disorders acute Screening for metabolic disorder acute Wellness examination acute [facility] Work Phone: evaluation note* Diagnosis Onset Date Resolution Status Anxiety acute Depression acute Screening for deficiency anemia acute Screening for lipid disorders acute Screening for metabolic disorder acute Wellness examination acute Anxiety acute [facility] Work Phone: evaluation note* Diagnosis Onset Date Resolution Status Admit Date Blood in stool acute May 9:35am GERD (gastroesophageal reflu x disease) acute June 09, 2024 9:35am Low back pain acute June 09, 2024 9:35am Right upper quadrant pain acute June 09, 2024 9:35am [facility] Work Phone: [facility] general Narrative - Reported* Type Description Date Medical History Carpal tunnel syndrome of right wrist Medical History Carpal tunnel syndrome of left w rist Medical History Kidney stone Surgical History appendectomy 2011 Hospitalization History see above [facility] Other [facility] general Narrative - Reported* Type Description Date Medical History Carpal tunnel syndrome of right wrist Medical History Carpal tunnel syndrome of left w rist Medical History Kidney stone Surgical History appendectomy 2012 Surgical History left carpal tunnel release Hospitalization History see above [facility] Other Hospital Discharge instructions Additional Instructions Follow-up Dr. Amador 1 to 2 days [facility] are [facility]: Hospital Discharge instructions Additional Instructions Do not drive or operate heavy machinery while taking narcotics or muscle relaxers Follow-up with your orthopedic surgeon, you can also call the phone number below for neurosurgery Perform the stretches and exercises Return for worsening numbness or complete weakness, headache, or other worsening concerns [facility] Work Phone: Hospital Discharge instructionsAmbulatory Orders* Referral to Gastroenterology Time Frame: 06/09/24, Location: None Selected * Referral to Pain Management Time Frame: 06/09/24, Location: None Selected [facility] Work Phone: Chief Complaint and Reason [...] op scriptRecheck Left W ristpost op questionsOP [employer]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 LT HAND INDEX FING PAIN (HAD CTR IN [place])Left Hand NoduleRecheck Left Index FingerLeft Hand Pain and SwellingLeft Hand PainRecheck Left HandCONGESTION COUGH SORE THROATTOOTH INFECTION, PAIN Care Teams (unrecognized sec tion and content) Team Status: Inactive Member Role Status Dates [facility] Primary Care Provider Active Meño Coelho MD Emergency Provider Active Team Status: Active Member Role Status Dates [facility] Primary Care Provider Active Team Status: Inactive Member Role Status Dates [facility] Primary Care Provider Active Mino Gallego DO Emergency Provider Active Team Status: Inactive Member Role Status Dates [facility] Dept Primary Care Provider Active Marilyn Rao MD Attending Provider Active Team Status: Active Member Role Status Dates La Contreras APRN 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-C Primary Care Provider Active Team Status: Inactive Member Role Status Dates La Contreras APRN [employer]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-C Primary Care Provider, Attending Provider Active Start: November 19, 2023 End: November 19, 2023 Team Status: Inactive Member Role Status Dates La Contreras APRN 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-C Primary Care Provider, Attending Provider Active Start: December 31, 2023 End: December 31, 2023 Team Status: Inactive Member Role Status Dates La Contreras APRN 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-C Primary Care Provider, Attending Provider Active Start: June 09, 2024 End: June 09, 2024 Goals (unrecognized section and content) Goals may be documented in a n alternate section (unrecognized sect ion and content) No Status Records FoundNo Status Records FoundNo Status Records Found INFORMATION SOURCE (unrecogn ized section and content) DATE CREATED AUTHOR 05/03/2022 [facility] DATE CREATED AUTHOR AUTHOR'S ORGANIZ ATION 09/05/[address] [facility] DATE CREATED AUTHOR AUTHOR'S ORGANIZ ATION 07/02/2024 [facility] FOR RECORDS PERTAINING TO PATIENTS WHO ARE [...] BE BASED ON THE PRIMARY CLINICAL RECORDS. [employer] provides no warranty or guarantee of the accuracy or completeness of information in this document.
--- NOTE | 2024-07-04 21:42 | ED.CHESTPAI1 ---
HPI - Chest Pain General Chief Complaint: Chest Pain Stated Complaint: CHEST PAIN Time Seen by Provider: 07/04/24 21:26 Source: patient and family Mode of arrival: walk-in Limitations: no limitations History of Present Illness HPI narrative: history of alcohol abuse. States recently informed he has a fatty liver and has stop drinking. Denies history of diabetes or CAD. States bridgett experienced acute onset of chest pain and pain of the left jaw. Associated with mild dyspnea and nausea. En route to hospital pain radiated down the left arm. Symptoms started over 1/2 hour ago. Now that he is here they are easing up. Denies smoking cigarettes Related Data Home Medications ?Medication ?Instructions ?Recorded ?Confirmed buspirone 5 mg tablet 5 mg PO BID 06/11/24 07/04/24 escitalopram oxalate 20 mg tablet 20 mg PO DAILY 06/11/24 07/04/24 gabapentin 300 mg capsule 300 mg PO TID 07/04/24 07/04/24 tamsulosin 0.4 mg capsule 0.4 mg PO Q24H 07/04/24 07/04/24 trazodone 50 mg tablet 50 mg PO DAILY 07/04/24 07/04/24 Allergies Allergy/AdvReac Type Severity Reaction Status Date / Time No Known Drug Allergies Allergy Verified 07/04/24 21:26 Review of Systems ROS Status of ROS 10 or more systems reviewed and unremarkable except as noted in history and below [facility] Medical History (Updated 07/05/24 @ 00:50 by Poncho Mann MD) Low back pain ?M54.50 - Low back pain, unspecified (ICD-10) Heartburn ?R12 - Heartburn (ICD-10) Acid reflux ?K21.9 - Gastro-esophageal reflux disease without esophagitis (ICD-10) Former smoker ?Z87.891 - Personal history of nicotine dependence (ICD-10) Irregular heart beat ?I49.9 - Cardiac arrhythmia, unspecified (ICD-10) High cholesterol ?E78.00 - Pure hypercholesterolemia, unspecified (ICD-10) Surgical History H/O hernia repair ?Z98.890 - Other specified postprocedural states (ICD-10) ?Z87.19 - Personal history of other diseases of the digestive system (ICD-10) History of carpal tunnel release ?Z98.890 - Other specified postprocedural states (ICD-10) History of appendectomy ?Z90.49 - Acquired absence of other specified parts of digestive tract (ICD-10) Social History Little interest or pleasure in doing things: not at all Feeling down, depressed, or hopeless: not at all Exam Constitutional Vital Signs, click to edit/add: Last Vital Signs Temp 98.4 F 07/04/24 21:22 Pulse 92 H 07/04/24 23:00 Resp 20 07/04/24 23:26 BP 128/90 07/04/24 23:26 Pulse Ox 96 07/04/24 23:00 O2 Del Method Room Air 07/04/24 21:22 Common normals: no apparent distress, average body habitus, oriented x3, no limitations, healthy appearing, alert and well nourished HENMT Common normals: normocephalic and head/scalp atraumatic Eye Common normals: PERRL and EOMs intact bilaterally Respiratory Common normals: normal respiratory effort, no retractions, no use of accessory muscles and clear to auscultation bilaterally Cardio Common normals: regular rate, regular rhythm, S1 normal heart sound and S2 normal heart sound GI Common normals: Normal to inspection, nondistended, normoactive bowel sounds present, soft to palpation and non-tender Extremity Common normals: normal to inspection Neuro Common normals: oriented x3, CN's II-XII intact bilaterally, moves all extremities and no focal motor deficits Psych Appearance: grossly normal Course Vital Signs Vital signs: Vital Signs Temperature 98.4 F 07/04/24 21:22 Pulse Rate 97 H 07/04/24 21:22 Respiratory Rate 18 07/04/24 21:22 Blood Pressure 157/94 H 07/04/24 21:22 Pulse Oximetry 98 07/04/24 21:22 Oxygen Delivery Method Room Air 07/04/24 21:22 Temperature 98.4 F 07/04/24 21:22 Pulse Rate 92 H 07/04/24 23:00 Respiratory Rate 20 07/04/24 23:26 Blood Pressure 128/90 07/04/24 23:26 Pulse Oximetry 96 07/04/24 23:00 Oxygen Delivery Method Room Air 07/04/24 21:22 MDM - Chest Pain MDM Narrative Medical decision making narrative: patient presents to the ER with anginal type symptoms. First time experiencing these symptoms. Patient informed of the plan of overnight observation and continued workup for the cause of his pain. He after hearing the rationale for this plan decided he did not want to stay and would follow up with his doctor. Discharged and advised close follow up Lab Data Labs: Lab Results 07/04/24 07/04/24 Range/Units 21:30 23:25 WBC 8.9 (4.0-11.0) 10^3/uL RBC 4.66 L (4.70-6.10) 10^6/uL Hgb 15.2 (14.0-18.0) g/dL Hct 41.8 L (42.0-54.0) % MCV 89.7 (80.0-94.0) fL MCH 32.6 (25.9-34.0) pg MCHC 36.4 H (29.9-35.2) g/dL RDW 12.1 (11.0-15.0) % Plt Count 239 (150-450) 10^3/uL MPV 10.1 (9.5-13.5) fL Neut % (Auto) 63.7 (43.0-75.0) % Lymph % (Auto) 22.4 (20.5-60.0) % [place] % (Auto) 8.5 (1.7-12.0) % Eos % (Auto) 4.7 (0.9-7.0) % Baso % (Auto) 0.6 (0.2-2.0) % Neut # (Auto) 5.7 (1.4-6.5) 10^3/uL Lymph # (Auto) 2.0 (1.2-3.8) 10^3/uL [place] # (Auto) 0.8 (0.3-0.8) 10^3/uL Eos # (Auto) 0.4 (0.0-0.7) 10^3/uL Baso # (Auto) 0.1 (0.0-0.1) 10^3/uL Abs Immat Gran (auto) 0.01 (0.00-0.03) 10^3/uL Imm/Tot Granulo (auto) 0.1 (0.0-0.5) % D-Dimer 0.26 (<=0.59) mg/L FEU Sodium 137 (136-145) mmol/L Potassium 3.7 (3.5-5.1) mmol/L Chloride 100 (98-107) mmol/L Carbon Dioxide 25.4 (21.0-32.0) mmol/L Anion Gap 15.3 BUN 11.0 (7.0-18.0) mg/dL Creatinine 1.02 (0.70-1.30) mg/dL Est GFR ( Amer) >60 (>=60 mL/min/1.73m^2) Est GFR (Non-Af Amer) >60 (>=60 mL/min/1.73m^2) BUN/Creatinine Ratio 10.8 Glucose 126 H (74-106) mg/dL Calcium 9.4 (8.5-10.1) mg/dL Troponin I High Sens 4.2 <4.0 L (4.0-76.1) pg/mL Discharge Plan Discharge Chief Complaint: Chest Pain Clinical Impression: Chest pain Patient Disposition: Home, Self-Care Prescriptions / Home Meds: No Action gabapentin 300 mg capsule 300 mg PO TID trazodone 50 mg tablet 50 mg PO DAILY tamsulosin 0.4 mg capsule 0.4 mg PO Q24H buspirone 5 mg tablet 5 mg PO BID escitalopram oxalate 20 mg tablet 20 mg PO DAILY Print Language: Algerian Instructions: Chest Pain (ED) Additional Instructions: follow up with your doctor within the next couple of days for recheck Referrals: ANGIE MONSALVE [Primary Care Provider] - 1 week
[2024-07-04 21:44] LABS: Basophils Absolute Auto 0.1 10^3/uL (0.0-0.1); Basophils Percent Auto 0.6 % (0.2-2.0); Eosinophils Absolute Auto 0.4 10^3/uL (0.0-0.7); Eosinophils Percent Auto 4.7 % (0.9-7.0); Hematocrit 41.8 % (42.0-54.0); Hemoglobin 15.2 g/dL (14.0-18.0); Immature Granulocytes Abs Auto 0.01 10^3/uL (0.00-0.03); Immature Granulocytes Pct Auto 0.1 % (0.0-0.5); Lymphocytes Percent Auto 22.4 % (20.5-60.0); Mean Corpuscular HGB Conc 36.4 g/dL (29.9-35.2); Mean Corpuscular Hemoglobin 32.6 pg (25.9-34.0); Mean Corpuscular Volume 89.7 fL (80.0-94.0); Mean Platelet Volume 10.1 fL (9.5-13.5); Monocytes Absolute Auto 0.8 10^3/uL (0.3-0.8); Monocytes Percent Auto 8.5 % (1.7-12.0); Neutrophils Absolute Auto 5.7 10^3/uL (1.4-6.5); Neutrophils Percent Auto 63.7 % (43.0-75.0); Platelet Count 239 10^3/uL (150-450); Red Blood Count 4.66 10^6/uL (4.70-6.10); Red Cell Distribution Width 12.1 % (11.0-15.0); White Blood Count 8.9 10^3/uL (4.0-11.0)
[2024-07-04 21:54] LABS: D Dimer 0.26 mg/L FEU (<=0.59)
[2024-07-04 21:58] LABS: Anion Gap 15.3; BUN Creatinine Ratio 10.8; Calcium 9.4 mg/dL (8.5-10.1); Carbon Dioxide 25.4 mmol/L (21.0-32.0); Chloride 100 mmol/L (98-107); Estimated GFR (African America >60 (>=60 mL/min/1.73m^2); Estimated GFR (Non-African Ame >60 (>=60 mL/min/1.73m^2); Glucose 126 mg/dL (74-106); Potassium 3.7 mmol/L (3.5-5.1); Sodium 137 mmol/L (136-145); Troponin I High Sensitivity 4.2 pg/mL (4.0-76.1)
[2024-07-04 23:55] LABS: Troponin I High Sensitivity <4.0 pg/mL (4.0-76.1)
== END 2024-07-05 00:58 | disposition home or self-care (01) ==
PROVIDERS: Emergency Provider Internal Medicine; PCP Nurse Practitioner Family
DX: R07.9 Chest pain, unspecified (principal); M48.062 Spinal stenosis, lumbar region with neurogenic claudication; M47.816 Spondylosis without myelopathy or radiculopathy, lumbar region; K76.0 Fatty (change of) liver, not elsewhere classified; F10.11 Alcohol abuse, in remission; Z90.49 Acquired absence of other specified parts of digestive tract
CPT/HCPCS: 36415; 71045; 80048; 84484; 85025; 85378; 93005; 99285; G0463

== ENCOUNTER 2024-07-18 20:46 | Emergency (ER) | payer OTHER, SELFPAY ==
[2024-07-18 20:50] VITALS: BP 155/97; PULSE 100; TEMP 36.7; O2SAT 98; BMI 32.5
--- NOTE | 2024-07-18 21:18 | ED_ITS ---
HPI HPI - Back Pain/Injury General Chief Complaint: Back Pain/Injury Stated Complaint: Back Pain Time Seen by Provider: 07/18/24 20:49 Source: patient Mode of arrival: walk-in History of Present Illness HPI Narrative: This 44-year-old male with a history of chronic low back pain presents for evaluation of ongoing and worsening back pain despite being placed on gabapentin by the interventional pain physician at this facility. The patient was seen here recently and diagnosed with sciatica and put on steroids and NSAIDs. He states that that was helping him somewhat but the pain management doctor would not refill the prescription for steroids. He was seen by pain management and diagnosed with lumbar spondylosis and lumbar stenosis with neurogenic claudication. He also complains of left-sided testicular pain which is new for him. He is not having any weakness or numbness but states he is having difficulty walking due to stumbling because of his right leg weakness. He denies any specific injury. The room that he is and smells very strongly of marijuana and I asked him if that is helping his pain and he agreed that it is helping him somewhat. He states that he is waiting for insurance approval for an MRI and request that since he has not had a confirmation for a date for his MRI that we do it from the emergency department [place]. I explained to him that that is not an option. He has not had any bowel or bladder incontinence or constipation. Related Data Home Medications ?Medication ?Instructions ?Recorded ?Confirmed buspirone 5 mg tablet 5 mg PO BID 06/11/24 07/04/24 escitalopram oxalate 20 mg tablet 20 mg PO DAILY 06/11/24 07/04/24 gabapentin 300 mg capsule 300 mg PO TID 07/04/24 07/04/24 tamsulosin 0.4 mg capsule 0.4 mg PO Q24H 07/04/24 07/04/24 trazodone 50 mg tablet 50 mg PO DAILY 07/04/24 07/04/24 Allergies Allergy/AdvReac Type Severity Reaction Status Date / Time No Known Drug Allergies Allergy Verified 07/04/24 21:26 Opioid HPI Opioid Management Most Recent Opioid Data: No Data to Display Review of Systems ROS Narrative Vital signs and Nursing Notes reviewed: Patient is afebrile with a normal pulse, blood pressure is elevated 155/97, he is not hypoxic with pulse ox of 98% on room air General: Awake, alert, oriented, moderately overweight adult male, no acute distress, lying comfortably on the stretcher-room smells strongly of marijuana HEENT: Normocephalic atraumatic, mucous membranes are moist and pink, eyes are clear, normal conjunctiva, vision is grossly intact Chest: Lungs are clear to auscultation with good air entry, there is no wheezing rhonchi or rales appreciated no accessory muscle use, patient is speaking in complete sentences-no chest wall tenderness to palpation CVS: Regular rate and rhythm S1-S2, no murmurs rubs or gallops, pulses are brisk and equal bilaterally ABD: Soft, nondistended, nontender, no rebound guarding or rigidity, bowel sounds are normal, no pulsatile masses appreciated : Chaperoned by nurse Ruthann, testicles have a normal lie, they are normal in size, there is normal cremasteric reflex, no penile discharge or inguinal lymphadenopathy noted Extremities: Moving all extremities, no lower extremity tenderness or swelling noted, negative Homans' sign, pulses are brisk and equal bilaterally Musc: Patient ambulates with a steady gait, there is no midline bony vertebral tenderness or step-off. There is tenderness across the lumbosacral area bilaterally without appreciable muscle spasm. There is mild tenderness in the piriformis muscles. He resists much range of motion due to back pain. Skin: Normal in appearance without rash,pallor, petechiae or purpura Neuro: No focal deficits, upper and lower extremity strength and sensation is intact. Lower extremity deep tendon reflexes are brisk and equal bilaterally. He is ambulatory with a steady gait without any notable foot drop or gait dist urbance [facility] Medical History (Updated 07/18/24 @ 22:12 by Elizabeth Vazquez MD) Low back pain ?M54.50 - Low back pain, unspecified (ICD-10) Heartburn ?R12 - Heartburn (ICD-10) Acid reflux ?K21.9 - Gastro-esophageal reflux disease without esophagitis (ICD-10) Former smoker ?Z87.891 - Personal history of nicotine dependence (ICD-10) Irregular heart beat ?I49.9 - Cardiac arrhythmia, unspecified (ICD-10) High cholesterol ?E78.00 - Pure hypercholesterolemia, unspecified (ICD-10) Surgical History H/O hernia repair ?Z98.890 - Other specified postprocedural states (ICD-10) ?Z87.19 - Personal history of other diseases of the digestive system (ICD-10) History of carpal tunnel release ?Z98.890 - Other specified postprocedural states (ICD-10) History of appendectomy ?Z90.49 - Acquired absence of other specified parts of digestive tract (ICD- 10) Social History Little interest or pleasure in doing things: not at all Feeling down, depressed, or hopeless: not at all Exam Constitutional Vital Signs, click to edit/add: Last Vital Signs Temp 98.1 F 07/18/24 20:50 Pulse 100 H 07/18/24 20:50 Resp 18 07/18/24 20:50 BP 155/97 H 07/18/24 20:50 Pulse Ox 98 07/18/24 20:50 O2 Del Method Room Air 07/18/24 20:50 Course Vital Signs Vital signs: Vital Signs Temperature 98.1 F 07/18/24 20:50 Pulse Rate 100 H 07/18/24 20:50 Respiratory Rate 18 07/18/24 20:50 Blood Pressure 155/97 H 07/18/24 20:50 Pulse Oximetry 98 07/18/24 20:50 Oxygen Delivery Method Room Air 07/18/24 20:50 Temperature 98.1 F 07/18/24 20:50 Pulse Rate 100 H 07/18/24 20:50 Respiratory Rate 18 07/18/24 20:50 Blood Pressure 155/97 H 07/18/24 20:50 Pulse Oximetry 98 07/18/24 20:50 Oxygen Delivery Method Room Air 07/18/24 20:50 MDM - Back Pain/Injury MDM Narrative Medical decision making narrative: This 44-year-old male with a history of chronic low back pain and has been diagnosed with lumbar stenosis with neurogenic claudication and lumbar spondylosis by the interventional pain physician and has been participating in physical therapy at home which he states is making his back pain worse presents for evaluation of ongoing back pain despite being on gabapentin recently. He also complains of left testicular pain. He is not having any urinary frequency urgency or dysuria. He is not having any nausea or vomiting. He has not had any fever. His neuroexam is normal. He states he has been stumbling over his right leg as well as having the pain. I was able to watch him ambulate and he did not have any foot drop or ataxic gait. His neuroexam is normal. Deep tendon reflexes are brisk. There is no saddle anesthesia. There is no history of bowel or bladder dysfunction or constipation. He was medicated with a dose of Bosque and Norflex. Ultrasound of the left testicle was ordered and was negative for acute findings according to the pest control service technician besides a small varicocele. The patient has been supplementing his pain medication with marijuana and states that this does help him somewhat. I did review an [place] report on him which is positive for gabapentin but no other narcotics. He has been recently on steroids which helped him to a certain degree but neither his family physician or the interventional pain physician refilled this prescription. Urine is negative for infection. He will be discharged home with prescription for ibuprofen Norflex and a short course of Bosque. He was encouraged to follow- up closely with his family physician and pain management doctor and continue to stay active. Lab Data Labs: Lab Results 07/18/24 Range/Units 21:51 Urine Color Lt. yellow (YELLOW) Urine Clarity Clear (CLEAR) Urine pH 6.5 (5.0-9.0) Ur Specific [place] <=1.005 A (1.005-1.025) Urine Protein Negative (NEG/TRACE) mg/dL Urine Glucose (UA) Negative (NEGATIVE) mg/dL Urine Ketones Negative (NEGATIVE) mg/dL Urine Occult Blood Trace-i (NEGATIVE) Urine Nitrite Negative (NEGATIVE) Urine Bilirubin Negative (NEGATIVE) Urine Urobilinogen 0.2 (0.2-1.0) EU/dL Ur Leukocyte Esterase Negative (NEGATIVE) Discharge Plan Discharge Chief Complaint: Back Pain/Injury Clinical Impression: Lumbar stenosis with neurogenic claudication, Acute exacerbation of chronic low back pain, Left testicular pain, Left varicocele Patient Disposition: Home, Self-Care Time of Disposition Decision: 22:11 Condition: Good Prescriptions / Home Meds: No Action gabapentin 300 mg capsule 300 mg PO TID trazodone 50 mg tablet 50 mg PO DAILY tamsulosin 0.4 mg capsule 0.4 mg PO Q24H buspirone 5 mg tablet 5 mg PO BID escitalopram oxalate 20 mg tablet 20 mg PO DAILY Print Language: Tamazight Instructions: Lumbar Spinal Stenosis (ED), Testicle Pain (ED), Opioid Safety (ED) Referrals: ANGIE MONSALVE [Primary Care Provider] - 1 week
[2024-07-18] MEDS: ORPHENADRINE 60 MG/2 ML VIAL IM (21:48)
[2024-07-18] MEDS: HYDROCODONE/ACET 5-325 MG TABLET 1 TAB PO (21:48)
[2024-07-18] MEDS: KETOROLAC TROMETHAMINE 60 MG/2 ML VIAL IM (21:48)
[2024-07-18 22:06] LABS: Bilirubin Urine NEGATIVE (NEGATIVE); Blood Urine TRACE-I (NEGATIVE); Clarity Urine CLEAR (CLEAR); Color Urine LT. YELLOW (YELLOW); Glucose Urine UA NEGATIVE (NEGATIVE); Ketones Urine NEGATIVE (NEGATIVE); Leukocyte Esterase Urine NEGATIVE (NEGATIVE); Nitrite Urine NEGATIVE (NEGATIVE); Protein Urine NEGATIVE (NEG/TRACE); Specific Gravity Urine <=1.005 (1.005-1.025); Urobilinogen Urine 0.2 EU/dL (0.2-1.0); pH Urine 6.5 (5.0-9.0)
[2024-07-18 22:12] LABS: Bacteria Urine NONE SEEN #/HPF (NONE SEEN); Cast Seen? NONE SEEN #/LPF (NONE SEEN); Crystals Seen? None Seen #/HPF (None Seen); Mucus Urine NONE SEEN (NONE SEEN); RBC Urine NONE SEEN #/HPF (0-2); Squamous Epithelial Cell Urine RARE #/LPF (NONE/RARE); Urine Culture Indicated NO; WBC Urine 0-2 #/HPF (NONE SEEN)
== END 2024-07-18 22:18 | disposition home or self-care (01) ==
PROVIDERS: Emergency Provider Emergency Medicine; PCP Nurse Practitioner Family
DX: N50.812 Left testicular pain (principal); M54.50 Low back pain, unspecified; I86.1 Scrotal varices; M48.062 Spinal stenosis, lumbar region with neurogenic claudication; G89.29 Other chronic pain; M47.816 Spondylosis without myelopathy or radiculopathy, lumbar region; Z79.899 Other long term (current) drug therapy
CPT/HCPCS: 76870; 81001; 93976; 96372; 99285; J1885; J2360

== ENCOUNTER 2024-07-29 07:27 | Outpatient (OUT) | payer OTHER, SELFPAY ==
--- NOTE | 2024-07-29 07:32 | MR_ITS ---
[address] [address] Patient Name: AMRITA COX MRN: [id number] date: 1980 Sex: M Assigned Patient Location: MRI Current Patient Location: MRI Accession/Order Number: [id number] Exam Date: 07/29/2024 09:00 Report Date: 07/29/2024 09:20 At the request of: DILLAN MELVIN MD Procedure: MR lumbar spine wo con EXAMINATION: MRI LUMBAR SPINE WITHOUT IV CONTRAST CLINICAL HISTORY: Lumbar Stenosis With Neuro Claudication COMPARISON: None TECHNIQUE: Multiecho imaging was performed in the sagittal and axial planes without contrast administration. FINDINGS: Vertebral body heights appear maintained. No bone marrow edema. Diffuse disc desiccation. Modic type endplate degenerative changes. Spinal cord terminates in normal position without abnormal cord signal. No paraspinal mass. Visualized retroperitoneum demonstrates no acute process. At L1-L2: Diffuse broad-based disc bulge is present with ligamentum flavum hypertrophy and facet joint degenerative changes causing moderate canal and bilateral neural foraminal stenosis. At L2-L3: Diffuse broad-based disc bulge is present with ligamentum flavum hypertrophy and facet joint degenerative changes causing moderate canal and bilateral neural foraminal stenosis. At L3-L4: Diffuse broad-based disc bulge is present with ligamentum flavum hypertrophy and facet joint degenerative changes causing moderate canal and bilateral neural foraminal stenosis. At L4-L5: Diffuse broad-based disc bulge is present malignant flavum hypertrophy and facet joint degenerative changes causing moderate canal and bilateral neural foraminal stenosis. At L5-S1: No posterior disc pathology. No neural canal or foraminal stenosis. MR/MR lumbar spine wo con IMPRESSION: Multilevel degenerative disease as described above with associated moderate canal and bilateral neural foraminal stenosis. Impression dictated by: David Curry Jr., D.O. 07/29/2024 9:20 AM Dictation Location: [facility] Electronically authenticated by: [id number] Y Date: 07/29/2024 09:20
== END 2024-07-29 07:28 | disposition home or self-care (01) ==
LOC: MRI 07:27
PROVIDERS: PCP Nurse Practitioner Family; Visit Provider Anesthesiology
DX: M48.062 Spinal stenosis, lumbar region with neurogenic claudication (principal); M51.369 Other intervertebral disc degeneration, lumbar region without mention of lumbar back pain or lower extremity pain
CPT/HCPCS: 72148

== ENCOUNTER 2024-08-01 14:58 | Outpatient (OUT) | payer OTHER, SELFPAY ==
--- NOTE | 2024-08-01 16:08 | PM.CN ---
Consult Note: HPI Data of Consult Patient: known to practice within the last 3 years Consult date: 08/01/24 Requesting Physician: Nan Bojorquez NP Primary Care Provider: ANGIE MONSALVE Consult Narrative Reason for consult: low back, bilateral leg pain Narrative: 44yom who presents for assessment. notes worsening pain through low back and bilateral legs. states that he has had increasing difficulty with right foot drop over past several weeks. imaging reviewed, significant for multilevel stenosis from l2-5. has tried lyrica, but makes him feel drowsy. cc:: CC: Nan Bojorquez NP Review of Systems ROS Status of ROS 10 or more systems reviewed and unremarkable except as noted in history and below [facility] Medical History Low back pain ?M54.50 - Low back pain, unspecified (ICD-10) Heartburn ?R12 - Heartburn (ICD-10) Acid reflux ?K21.9 - Gastro-esophageal reflux disease without esophagitis (ICD-10) Former smoker ?Z87.891 - Personal history of nicotine dependence (ICD-10) Irregular heart beat ?I49.9 - Cardiac arrhythmia, unspecified (ICD-10) High cholesterol ?E78.00 - Pure hypercholesterolemia, unspecified (ICD-10) Surgical History H/O hernia repair ?Z98.890 - Other specified postprocedural states (ICD-10) ?Z87.19 - Personal history of other diseases of the digestive system (ICD-10) History of carpal tunnel release ?Z98.890 - Other specified postprocedural states (ICD-10) History of appendectomy ?Z90.49 - Acquired absence of other specified parts of digestive tract (ICD-10) Social History Little interest or pleasure in doing things: not at all Feeling down, depressed, or hopeless: not at all Meds Home Medications and Allergies Home Medications ?Medication ?Instructions ?Recorded ?Confirmed ?Type buspirone 5 mg tablet 5 mg PO BID 06/11/24 07/04/24 History escitalopram oxalate 20 mg tablet 20 mg PO DAILY 06/11/24 07/04/24 History tamsulosin 0.4 mg capsule 0.4 mg PO Q24H 07/04/24 07/04/24 History trazodone 50 mg tablet 50 mg PO DAILY 07/04/24 07/04/24 History duloxetine 60 mg capsule,delayed 60 mg PO DAILY #30 caps 08/01/24 Rx release (Cymbalta) etodolac 400 mg tablet (Lodine) 400 mg PO Q12H PRN pain #60 tabs 08/01/24 Rx Allergies Allergy/AdvReac Type Severity Reaction Status Date / Time No Known Drug Allergies Allergy Verified 07/04/24 21:26 Exam Narrative Exam Narrative: Psych-alert and oriented x 3. Attentive and appropriate, constitutionally normal, displays normal mood and affect per situation. There are no obvious deficits in memory, reasoning, or intellect.? Skin-no obvious rashes, bruising, erythema noted to the patient's area of pain.? Extremities- extremities are warm with minimal edema and palpable pulses. Lumbar-tenderness to palpation noted in the lumbar spine and paraspinal musculature. Pain is elicited with flexion, extension, and lateral rotation of the lumbar spine. Range of motion is diminished with these motions. Facet loading maneuvers are positive.? Strength-noted to be unremarkable with the exception of decreased strength rated at 4 out of 5 in right quadriceps femoris, anterior tibialis. Sensory-no notable sensory deficits in the bilateral lower extremities to touch or pinprick in all dermatomal distributions with the exception to decreased sensation to the right L3, 4 dermatomal distribution Coordination remains intact.? Gait remains non-antalgic. Assessment and Plan Assessment and Plan (1) Lumbar stenosis with neurogenic claudication: (2) Lumbar spondylosis: Plan 44yom who presents for assessment. failed conservative measures, as noted. imaging reviewed, as noted. given symptoms and imaging, including new onset foot drop, will have him referred to spine surgeon for evaluation. he is in agreement. meds reviewed. will discontinue lyrica and try cymbalta 60mg qhs. will also try lodine 400mg bid prn. follow up after evaluation.
== END 2024-08-01 14:59 | disposition home or self-care (01) ==
PROVIDERS: PCP Nurse Practitioner Family; Visit Provider Nurse Practitioner
DX: M48.062 Spinal stenosis, lumbar region with neurogenic claudication (principal); M47.816 Spondylosis without myelopathy or radiculopathy, lumbar region
CPT/HCPCS: G0463

== ENCOUNTER 2024-08-17 09:55 | Outpatient (RCR) | payer OTHER, SELFPAY | END 2024-08-25 11:55 | disposition home or self-care (01) | LOC: PT 09:55 | PROVIDERS: PCP Nurse Practitioner Family; Visit Provider Orthopaedic Surgery Orthopaedic Surgery of the Spine | DX: M51.362 Other intervertebral disc degeneration, lumbar region with discogenic back pain and lower extremity pain (principal) | CPT/HCPCS: 97010; 97012; 97014; 97110; 97140; 97162 ==

== ENCOUNTER 2024-08-24 16:15 | Emergency (ER) | payer OTHER, SELFPAY ==
[2024-08-24 16:54] VITALS: BP 128/99; PULSE 76; TEMP 36.7; O2SAT 98; BMI 32.5
--- NOTE | 2024-08-24 17:32 | ED.GENADUL1 ---
HPI HPI - General Adult General Chief complaint: Headache Stated complaint: HEADACHE Time Seen by Provider: 08/24/24 17:25 Source: patient and family Mode of arrival: walk-in Limitations: no limitations History of Present Illness HPI narrative: 44 year old male presents to the ED for a headache. It has been intermittent for the past 3-4 days. The pain is occipital and radiates to the top of his head. Denies fever, chills, injury, vision changes, N/V. Reports intermittent dizziness with position changes. Denies neck pain/stiffness. He has tried Tylenol without relief. Denies history of headaches. Reports recent cervical spine MRI. Related Data Home Medications ?Medication ?Instructions ?Recorded ?Confirmed buspirone 5 mg tablet 5 mg PO BID 06/11/24 08/24/24 escitalopram oxalate 20 mg tablet 20 mg PO DAILY 06/11/24 08/24/24 tamsulosin 0.4 mg capsule 0.4 mg PO Q24H 07/04/24 08/24/24 trazodone 50 mg tablet 50 mg PO DAILY 07/04/24 08/24/24 omeprazole 40 mg capsule,delayed 40 mg PO DAILY 08/24/24 08/24/24 release pregabalin 50 mg capsule 50 mg PO TID 08/24/24 08/24/24 Previous Rx's ?Medication ?Instructions ?Recorded zonisamide 50 mg capsule 50 mg PO BID #60 caps 08/17/24 hqzzqrdgiu-cdzejqjememns-awrdmgmy 1 tab PO Q6H PRN pain #10 tabs 08/24/24 50 mg-325 mg-40 mg tablet Allergies Allergy/AdvReac Type Severity Reaction Status Date / Time No Known Drug Allergies Allergy Verified 08/24/24 16:54 Review of Systems ROS Constitutional Denies: fever or chills Eyes Denies: change in vision or blurry vision Ears, nose, mouth, and throat Denies: throat pain or neck pain Cardiovascular Denies: chest pain Respiratory Denies: shortness of breath Gastrointestinal Denies: nausea or vomiting Neurological Reports: headache; Denies: numbness in extremities, weakness in extremities, lack of coordination or slurred speech PFSH PFS Medical History Low back pain ?M54.50 - Low back pain, unspecified (ICD-10) Heartburn ?R12 - Heartburn (ICD-10) Acid reflux ?K21.9 - Gastro-esophageal reflux disease without esophagitis (ICD-10) Former smoker ?Z87.891 - Personal history of nicotine dependence (ICD-10) Irregular heart beat ?I49.9 - Cardiac arrhythmia, unspecified (ICD-10) High cholesterol ?E78.00 - Pure hypercholesterolemia, unspecified (ICD-10) Surgical History H/O hernia repair ?Z98.890 - Other specified postprocedural states (ICD-10) ?Z87.19 - Personal history of other diseases of the digestive system (ICD-10) History of carpal tunnel release ?Z98.890 - Other specified postprocedural states (ICD-10) History of appendectomy ?Z90.49 - Acquired absence of other specified parts of digestive tract (ICD-10) Social History Little interest or pleasure in doing things: not at all Feeling down, depressed, or hopeless: not at all Exam Constitutional Vital Signs, click to edit/add: Last Vital Signs Temp 98.1 F 08/24/24 16:54 Pulse 76 08/24/24 16:54 Resp 16 08/24/24 16:54 BP 128/99 H 08/24/24 16:54 Pulse Ox 98 08/24/24 16:54 O2 Del Method Room Air 08/24/24 16:54 Common normals: no apparent distress and oriented x3 General appearance: cooperative [facility] Common normals: normocephalic, external ears normal and moist oral mucous membranes Mouth: oral and palatal mucosa normal, lip normal and tongue normal Throat: posterior oropharynx normal and uvula midline Eye Common normals: PERRL, EOMs intact bilaterally, conjunctivae normal and no scleral icterus Neck & C-Spine Common normals: supple and no meningeal signs Respiratory Common normals: normal respiratory effort Effort & inspection: able to speak in complete sentences and symmetric chest movement Cardio Common normals: regular rate Neuro Common normals: oriented x3, CN's II-XII intact bilaterally, moves all extremities and no focal motor deficits Sensorium/orientation: awake and alert Speech: speech normal Gait (neuro): normal gait Course Vital Signs Vital signs: Vital Signs Temperature 98.1 F 08/24/24 16:54 Pulse Rate 76 08/24/24 16:54 Respiratory Rate 16 08/24/24 16:54 Blood Pressure 128/99 H 08/24/24 16:54 Pulse Oximetry 98 08/24/24 16:54 Oxygen Delivery Method Room Air 08/24/24 16:54 Temperature 98.1 F 08/24/24 16:54 Pulse Rate 76 08/24/24 16:54 Respiratory Rate 16 08/24/24 16:54 Blood Pressure 128/99 H 08/24/24 16:54 Pulse Oximetry 98 08/24/24 16:54 Oxygen Delivery Method Room Air 08/24/24 16:54 Medical Decision Making MDM Narrative Medical decision making narrative: CT scan was negative for acute findings. The patient was given IV fluids, Decadron, Reglan, and Benadryl with improvement in his headache. He was comfortable being discharged home. OARRS was reviewed. A prescription was provided for Fioricet. Follow up with pcp for a recheck, further evaluation and treatment. Medical Records Medical records reviewed: Yes I reviewed the patient's medical records Imaging Data CT scan - head: Attestation: I have reviewed the pertinent imaging results. Radiologist's impression: No acute intracranial process. Discharge Plan Discharge Chief Complaint: Headache Clinical Impression: Headache Patient Disposition: Home, Self-Care Time of Disposition Decision: 18:43 Condition: Good Mode of Transportation: Private Vehicle Prescriptions / Home Meds: New tdvjogljku-drgmvegdixhov-yklp 50-325-40 mg tablet 1 tab PO Q6H PRN (Reason: pain) Qty: 10 0RF No Action trazodone 50 mg tablet 50 mg PO DAILY tamsulosin 0.4 mg capsule 0.4 mg PO Q24H buspirone 5 mg tablet 5 mg PO BID escitalopram oxalate 20 mg tablet 20 mg PO DAILY zonisamide 50 mg capsule 50 mg PO BID Qty: 60 0RF pregabalin 50 mg capsule 50 mg PO TID omeprazole 40 mg capsule,delayed release(DR/EC) 40 mg PO DAILY Print Language: [place] Instructions: Acute Headache (ED) Additional Instructions: Return to the ER for worsening symptoms. Referrals: ANGIE MONSALVE [Primary Care Provider, Unknown] - 1 week
[2024-08-24] MEDS: DIPHENHYDRAMINE HCL 50 MG/ML VIAL 25 MG IVP (18:12)
[2024-08-24] MEDS: 0.9 % SODIUM CHLORIDE 1,000 ML 1000 ML IV (18:12)
[2024-08-24] MEDS: METOCLOPRAMIDE HCL 10 MG/2 ML VIAL IVP (18:12)
[2024-08-24] MEDS: DEXAMETHASONE SOD PHOS 10 MG/ML VIAL IV (18:12)
== END 2024-08-24 19:17 | disposition home or self-care (01) ==
PROVIDERS: Emergency Provider Emergency Medicine; PCP Nurse Practitioner Family
DX: R51.9 Headache, unspecified (principal)
CPT/HCPCS: 70450; 96374; 96375; 99285; J1100; J1200; J2765

== ENCOUNTER 2025-02-03 14:49 | Outpatient (RCR) | payer OTHER, SELFPAY | END 2025-02-28 09:23 | disposition home or self-care (01) | LOC: PT 14:49 | PROVIDERS: PCP Nurse Practitioner Family; Visit Provider Nurse Practitioner Family | DX: M54.12 Radiculopathy, cervical region (principal); M54.50 Low back pain, unspecified | CPT/HCPCS: 97110; 97162 ==